=== PATIENT | male | born 1935 | race Caucasian/White ===

== ENCOUNTER 2018-05-12 17:47 | Inpatient (IN) | payer MEDICARE ==
--- NOTE | 2018-05-12 20:07 | ED ---
Abdominal Pain HPI - General Chief Complaint: Abdominal Pain Stated Complaint: Back Pain Time Seen by Provider: 05/12/18 19:47 Source: patient, RN notes reviewed Mode of arrival: ambulatory Limitations: no limitations - History of Present Illness Initial Comments: This is a 83-year-old male who states she's had abdominal pain for the past 2 or 3 days lower abdomen in location with some radiation to his back. He denies any fevers chills nausea vomiting sweats diarrhea constipation dysuria hematuria. He states he gets worse when he tries he had been in the morning. He states is worse with movement he will be sharp and 8/10 severity currently is almost 0. No prior history of pain like this. He did have x-rays done outpatient today which showed degenerative changes of the lumbar spine. He denies any prior abdominal operations. No history of diverticulitis MD Complaint: abdominal pain - Related Data Home Medications Medication Instructions Recorded Confirmed Acetaminophen [Tylenol] 325 mg PO Q4H PRN 12/10/14 05/12/18 Ca/D3/Mag/Zinc/Alexandre/Klaus/Mgbor 1 each PO DAILY 12/10/14 05/12/18 [Caltrate 600+D3+Min Chew Tab] Cholecalciferol [Vitamin D3] 400 unit PO DAILY 12/10/14 05/12/18 Multivit-Min/FA/Lycopene/Lut 1 each PO DAILY 12/10/14 05/12/18 [Centrum Silver Tablet] amLODIPine BESYLATE [Norvasc] 5 mg PO DAILY 12/10/14 05/12/18 Ascorbic Acid [Vitamin C] 1,000 mg PO DAILY 05/12/18 05/12/18 Loperamide HCl [Imodium A-D] 2 mg PO BID 05/12/18 05/12/18 Previous Rx's Medication Instructions Recorded Budesonide-Formot 160-4.5 Mcg 2 puff INHALATION RT-BID #1 puff 12/14/14 [Symbicort 160-4.5 Mcg Inhaler] Ipratropium-Albuterol Nebulize 3 ml IH QID #120 ampul.neb 12/14/14 [Duoneb 0.5 mg-3 mg/3 ml Soln] Allergies Allergy/AdvReac Type Severity Reaction Status Date / Time Penicillins Allergy Rash/Hives Verified 05/12/18 20:31 Review of Systems ROS Statement: Those systems with pertinent positive or pertinent negative responses have been documented in the HPI. ROS Other: All systems not noted in ROS Statement are negative. Past Medical History Past Medical History: Eye Disorder, Hypertension, Osteoarthritis (OA), Pneumonia Additional Past Medical History / Comment(s): arthritis, peptic ulcer, cataracts , renal insufficiency History of Any Multi-Drug Resistant Organisms: None Reported Past Surgical History: Adenoidectomy, Hernia Repair, Tonsillectomy Additional Past Surgical History / Comment(s): colonoscopy/egd "a few years ago ", lt inguinal hernia Past Anesthesia/Blood Transfusion Reactions: No Reported Reaction Past Psychological History: No Psychological Hx Reported Smoking Status: Never smoker Past Alcohol Use History: None Reported Past Drug Use History: None Reported - Past Family History Father Family Medical History: Myocardial Infarction ([place]) Additional Family Medical History / Comment(s): lived till age 87 Mother Family Medical History: Myocardial Infarction ([place]) Additional Family Medical History / Comment(s): lived till age 95 General Exam - General Exam Comments Initial Comments: This is a well-developed asthenic appearing male who is awake alert oriented 3 Limitations: no limitations General appearance: alert, in no apparent distress Head exam: Present: atraumatic, normocephalic, normal inspection Eye exam: Present: normal appearance, PERRL, EOMI. Absent: scleral icterus, conjunctival injection, periorbital swelling ENT exam: Present: normal exam, mucous membranes moist Neck exam: Present: normal inspection. Absent: tenderness, meningismus, lymphadenopathy Respiratory exam: Present: normal lung sounds bilaterally. Absent: respiratory distress, wheezes, rales, rhonchi, stridor Cardiovascular Exam: Present: regular rate, normal rhythm, normal heart sounds. Absent: systolic murmur, diastolic murmur, rubs, gallop, clicks GI/Abdominal exam: Present: soft, tenderness (Suprapubic tenderness palpation no definite guarding or rebound the bladder does feel somewhat prominent.), normal bowel sounds. Absent: distended, guarding, rebound, rigid Extremities exam: Present: normal inspection, full ROM, normal capillary refill. Absent: tenderness, pedal edema, joint swelling, calf tenderness Back exam: Present: other (Okay for THIS is demonstrated patient does have some mild paraspinous tenderness at the lower lumbar) Neurological exam: Present: alert, oriented X3, CN II-XII intact Psychiatric exam: Present: normal affect, normal mood Skin exam: Present: warm, dry, intact, normal color. Absent: rash Course Vital Signs 05/12/18 05/12/18 05/12/18 18:16 19:29 21:00 Temperature 97.6 F Pulse Rate 89 Respiratory 18 Rate Blood Pressure 148/81 152/83 O2 Sat by Pulse 99 86 L 99 Oximetry Medical Decision Making - Medical Decision Making I did discuss findings with the patient and family members patient be admitted for further evaluation of abdominal pain CAT scan will be ordered without IV contrast oral contrast only. Surgical consultation will be obtained in the a.m. - Lab Data Result diagrams: 05/12/18 20:33 05/12/18 20:33 Lab Results 05/12/18 05/12/18 05/12/18 Range/Units 20:33 20:33 20:33 WBC 10.3 (3.8-10.6) k/uL RBC 4.27 L (4.30-5.90) m/uL Hgb 13.4 (13.0-17.5) gm/dL Hct 39.7 (39.0-53.0) % MCV 92.9 (80.0-100.0) fL MCH 31.4 (25.0-35.0) pg MCHC 33.8 (31.0-37.0) g/dL RDW 12.3 (11.5-15.5) % Plt Count 270 (150-450) k/uL Neutrophils % 82 % Lymphocytes % 7 % Monocytes % 6 % Eosinophils % 3 % Basophils % 0 % Neutrophils # 8.5 H (1.3-7.7) k/uL Lymphocytes # 0.8 L (1.0-4.8) k/uL Monocytes # 0.6 (0-1.0) k/uL Eosinophils # 0.3 (0-0.7) k/uL Basophils # 0.0 (0-0.2) k/uL PT (9.0-12.0) sec INR (<1.2) APTT (22.0-30.0) sec Sodium 131 L (137-145) mmol/L Potassium 4.7 (3.5-5.1) mmol/L Chloride 92 L (98-107) mmol/L Carbon Dioxide 28 (22-30) mmol/L Anion Gap 11 mmol/L BUN 23 H (9-20) mg/dL Creatinine 1.11 (0.66-1.25) mg/dL Est GFR (CKD-EPI)AfAm 70 (>60 ml/min/1.73 sqM) Est GFR (CKD-EPI)NonAf 61 (>60 ml/min/1.73 sqM) Glucose 101 H (74-99) mg/dL Plasma Lactic Acid Turner (0.7-2.0) mmol/L Calcium 9.4 (8.4-10.2) mg/dL Total Bilirubin 0.8 (0.2-1.3) mg/dL AST 38 (17-59) U/L ALT 37 (21-72) U/L Alkaline Phosphatase 61 (38-126) U/L Total Creatine Kinase 148 (55-170) U/L CK-MB (CK-2) 3.2 H (0.0-2.4) ng/mL CK-MB (CK-2) Rel Index 2.2 Troponin I <0.012 (0.000-0.034) ng/mL Total Protein 6.7 (6.3-8.2) g/dL Albumin 4.2 (3.5-5.0) g/dL Amylase 86 (30-110) U/L Lipase 196 (23-300) U/L Urine Color Urine Appearance (Clear) Urine pH (5.0-8.0) Ur Specific [place] (1.001-1.035) Urine Protein (Negative) Urine Glucose (UA) (Negative) Urine Ketones (Negative) Urine Blood (Negative) Urine Nitrite (Negative) Urine Bilirubin (Negative) Urine Urobilinogen (<2.0) mg/dL Ur Leukocyte Esterase (Negative) Blood Type Blood Type Recheck Antibody Screen Spec Expiration Date 05/12/18 05/12/18 05/12/18 Range/Units 20:33 20:33 20:33 WBC (3.8-10.6) k/uL RBC (4.30-5.90) m/uL Hgb (13.0-17.5) gm/dL Hct (39.0-53.0) % MCV (80.0-100.0) fL MCH (25.0-35.0) pg MCHC (31.0-37.0) g/dL RDW (11.5-15.5) % Plt Count (150-450) k/uL Neutrophils % % Lymphocytes % % Monocytes % % Eosinophils % % Basophils % % Neutrophils # (1.3-7.7) k/uL Lymphocytes # (1.0-4.8) k/uL Monocytes # (0-1.0) k/uL Eosinophils # (0-0.7) k/uL Basophils # (0-0.2) k/uL PT 10.0 (9.0-12.0) sec INR 1.0 (<1.2) APTT 28.5 (22.0-30.0) sec Sodium (137-145) mmol/L Potassium (3.5-5.1) mmol/L Chloride (98-107) mmol/L Carbon Dioxide (22-30) mmol/L Anion Gap mmol/L BUN (9-20) mg/dL Creatinine (0.66-1.25) mg/dL Est GFR (CKD-EPI)AfAm (>60 ml/min/1.73 sqM) Est GFR (CKD-EPI)NonAf (>60 ml/min/1.73 sqM) Glucose (74-99) mg/dL Plasma Lactic Acid Turner 1.1 (0.7-2.0) mmol/L Calcium (8.4-10.2) mg/dL Total Bilirubin (0.2-1.3) mg/dL AST (17-59) U/L ALT (21-72) U/L Alkaline Phosphatase (38-126) U/L Total Creatine Kinase (55-170) U/L CK-MB (CK-2) (0.0-2.4) ng/mL CK-MB (CK-2) Rel Index Troponin I (0.000-0.034) ng/mL Total Protein (6.3-8.2) g/dL Albumin (3.5-5.0) g/dL Amylase (30-110) U/L Lipase (23-300) U/L Urine Color Light Yellow Urine Appearance Clear (Clear) Urine pH 7.5 (5.0-8.0) Ur Specific [place] 1.008 (1.001-1.035) Urine Protein Negative (Negative) Urine Glucose (UA) Negative (Negative) Urine Ketones 1+ H (Negative) Urine Blood Negative (Negative) Urine Nitrite Negative (Negative) Urine Bilirubin Negative (Negative) Urine Urobilinogen <2.0 (<2.0) mg/dL Ur Leukocyte Esterase Negative (Negative) Blood Type Blood Type Recheck Antibody Screen Spec Expiration Date 05/12/18 Range/Units 20:33 WBC (3.8-10.6) k/uL RBC (4.30-5.90) m/uL Hgb (13.0-17.5) gm/dL Hct (39.0-53.0) % MCV (80.0-100.0) fL MCH (25.0-35.0) pg MCHC (31.0-37.0) g/dL RDW (11.5-15.5) % Plt Count (150-450) k/uL Neutrophils % % Lymphocytes % % Monocytes % % Eosinophils % % Basophils % % Neutrophils # (1.3-7.7) k/uL Lymphocytes # (1.0-4.8) k/uL Monocytes # (0-1.0) k/uL Eosinophils # (0-0.7) k/uL Basophils # (0-0.2) k/uL PT (9.0-12.0) sec INR (<1.2) APTT (22.0-30.0) sec Sodium (137-145) mmol/L Potassium (3.5-5.1) mmol/L Chloride (98-107) mmol/L Carbon Dioxide (22-30) mmol/L Anion Gap mmol/L BUN (9-20) mg/dL Creatinine (0.66-1.25) mg/dL Est GFR (CKD-EPI)AfAm (>60 ml/min/1.73 sqM) Est GFR (CKD-EPI)NonAf (>60 ml/min/1.73 sqM) Glucose (74-99) mg/dL Plasma Lactic Acid Turner (0.7-2.0) mmol/L Calcium (8.4-10.2) mg/dL Total Bilirubin (0.2-1.3) mg/dL AST (17-59) U/L ALT (21-72) U/L Alkaline Phosphatase (38-126) U/L Total Creatine Kinase (55-170) U/L CK-MB (CK-2) (0.0-2.4) ng/mL CK-MB (CK-2) Rel Index Troponin I (0.000-0.034) ng/mL Total Protein (6.3-8.2) g/dL Albumin (3.5-5.0) g/dL Amylase (30-110) U/L Lipase (23-300) U/L Urine Color Urine Appearance (Clear) Urine pH (5.0-8.0) Ur Specific [place] (1.001-1.035) Urine Protein (Negative) Urine Glucose (UA) (Negative) Urine Ketones (Negative) Urine Blood (Negative) Urine Nitrite (Negative) Urine Bilirubin (Negative) Urine Urobilinogen (<2.0) mg/dL Ur Leukocyte Esterase (Negative) Blood Type O Positive Blood Type Recheck CABO Indicated Antibody Screen NEGATIVE Spec Expiration Date 05/15/2018 - 2333 - Radiology Data Radiology results: report reviewed (Did review the imaging and report there is dilatation of the biliary tree and pancreatic ducts. The bowel is poorly delineated.), image reviewed Disposition Clinical Impression: Abdominal pain Disposition: ADMITTED IP TO THIS [facility] Condition: Stable Referrals: Corwin Leija DO [Primary Care Provider] - 1-2 days
[2018-05-12 20:56] LABS: Basophils % (A) 0 %; Eosinophils # (A) 0.3 k/uL (0-0.7); Eosinophils % (A) 3 %; HCT 39.7 % (39.0-53.0); HGB 13.4 gm/dL (13.0-17.5); Lymphocytes # (A) 0.8 k/uL (1.0-4.8); Lymphocytes % (A) 7 %; MCH 31.4 pg (25.0-35.0); MCHC 33.8 g/dL (31.0-37.0); MCV 92.9 fL (80.0-100.0); Monocytes # (A) 0.6 k/uL (0-1.0); Monocytes % (A) 6 %; Neutrophils # (A) 8.5 k/uL (1.3-7.7); Neutrophils % (A) 82 %; Platelet Count 270 k/uL (150-450); RBC 4.27 m/uL (4.30-5.90); RDW 12.3 % (11.5-15.5); WBC 10.3 k/uL (3.8-10.6)
[2018-05-12 20:57] LABS: Appearance,Urine Clear (Clear); Bilirubin,Urine Negative (Negative); Blood,Urine Negative (Negative); Color,Urine Light Yellow; Glucose,Urine (UA) Negative (Negative); Ketones,Urine 1+ (Negative); Leukocyte Esterase,Urine Negative (Negative); Nitrite,Urine Negative (Negative); PH, Urine 7.5 (5.0-8.0); Protein,Urine Negative (Negative); Specific Gravity,Urine 1.008 (1.001-1.035); Urobilinogen,Urine <2.0 mg/dL (<2.0)
[2018-05-12 21:08] LABS: Albumin 4.2 g/dL (3.5-5.0); Calcium 9.4 mg/dL (8.4-10.2); Potassium 4.7 mmol/L (3.5-5.1); Total Bilirubin 0.8 mg/dL (0.2-1.3); Total Protein 6.7 g/dL (6.3-8.2)
[2018-05-12 21:12] LABS: Partial Thromboplastin Time 28.5 sec (22.0-30.0)
[2018-05-12 21:13] LABS: Creatine Kinase 148 U/L (55-170)
[2018-05-12 21:26] LABS: Creatine Kinase MB 3.2 ng/mL (0.0-2.4); Troponin I <0.012 ng/mL (0.000-0.034)
--- NOTE | 2018-05-12 22:19 | CT ---
EXAMINATION TYPE: CT abdomen pelvis w con DATE OF EXAM: 05/12/2018 COMPARISON: 01/10/2015 CT HISTORY: Abdominal and back pain. CT DLP: 637.3 mGycm. Automated exposure control for dose reduction was used. TECHNIQUE: Helical acquisition of images was performed from the lung bases through the pelvis. CONTRAST: Performed without Oral Contrast and with IV Contrast, patient injected with 100ml mL of Iso nannette 300. FINDINGS: VISUALIZED LOWER THORAX: Left lung base 11 mm pulmonary nodule noted. It has a correlate on the 2014 CT by 3 month follow-up chest CT is recommended to further characterize. Pleural calcified plaq ues are noted, consistent with asbestos related change. Mild cardiomegaly with prominent coronary akiko cifications. LIVER/GB/PANCREAS: There is mild extrahepatic biliary tree dilation and mild pancreatic ductal dilati on. Etiology is unclear; request LFT and pancreatic enzymatic correlation, and consideration of MRI/M FINANCIAL REPORTING DIRECTOR versus ERCP in this patient presenting with abdominal and back pain. SPLEEN: No significant abnormality is seen. ADRENALS: No significant abnormality is seen. KIDNEYS: No significant abnormality is seen. PERITONEAL CAVITY: No free air is visualized. ABDOMINAL ADENOPATHY: None visualized REPRODUCTIVE ORGANS: No significant abnormality is seen URINARY BLADDER: Mildly distended. PELVIC ADENOPATHY: None visualized. OSSEOUS STRUCTURES: No significant abnormality is seen. BOWEL: It is difficult to assess the bowel in this patient with very little abdominopelvic adipose. There are several loops of dilated fluid filled small and large bowel. If clinically useful would sug gest consideration of bowel assessment using 2 hour and 1 hour oral contrast prep - with repeat CT. I V contrast need not be given the for this hollow viscera CT with oral contrast assessment. VASCULATURE: No acute findings. IMPRESSION: 1. DILATED PANCREATICOBILIARY SYSTEMS. 2. BOWEL GAS PATTERN DISCUSSION. 2. LEFT LOWER LOBE PULMONARY NODULE FOR WHICH THREE-MONTH FOLLOW-UP CT IS ADVISED.
[2018-05-12] MEDS ORDERED: ONDANSETRON 4 MG/2 ML VIAL IVP PRN (23:06)
[2018-05-12] MEDS ORDERED: NALOXONE 0.4 MG/ML 1 ML VIAL IV PRN (23:06)
[2018-05-12] MEDS ORDERED: HYDROmorphone 1 MG/ML 1 ML SYRINGE IVP PRN (23:06)
[2018-05-12] MEDS ORDERED: IOPAMIDOL-300 CONTRAST 30 ML VIAL (ORAL USE) PO PRN (23:10)
--- NOTE | 2018-05-13 02:00 | CT ---
EXAMINATION TYPE: CT abdomen pelvis wo con DATE OF EXAM: 05/13/2018 COMPARISON: 05/12/2018 HISTORY: Prior A/P exam done earlier with IV only, PO only now, Abdominal and back pain CT DLP: 362.50 mGycm Automated exposure control for dose reduction was used. TECHNIQUE: Helical acquisition of images was performed from the lung bases through the pelvis. FINDINGS: There is some interstitial infiltrate at the lung bases. Heart is slightly enlarged. There is 12 mm n oncalcified nodular density in the left lower lobe. This is probably also present on the old CT scan of 01/10/2015 and not significantly different. There is subpleural reticular density in the lower lobe s consistent with pulmonary fibrosis there is small hiatal hernia. There is dilated biliary tree. There is also mildly dilated pancreatic duct that measures up to 5.5 mm. There are numerous large bowel fluid levels in the right abdomen. Sm all bowel is not dilated. The oral contrast does not reach the large bowel. There are numerous divert icula in the descending colon and sigmoid colon. The bladder is filled with IV contrast. Prostate is large and measures almost 5 cm. There are a few lymph nodes in the pelvis that measure up to 15 there are mild bilateral inguinal hernias without incarceration. There is no evidence of constipation. The left colon is not dilated. There is some fecal material in the descending colon. There is contrast i n the kidneys without evidence of hydronephrosis. . 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 THERE IS IMPROVED AERATION OF THE LUNG BAS ES COMPARED TO 01/10/2015 CT SCAN. LEFT LOWER LOBE NODULE IS PROBABLY UNCHANGED. DILATED BILIARY TREE AND PANCREATIC DUCT. DISTAL COMMON BILE DUCT IS NOT WELL EVALUATED AND ERCP OR M BLOCK TRIMMER EXAM WOULD BE HELPFUL IF CLINICALLY INDICATED. THERE IS MILDLY DILATED FLUID AND AIR-FILLED RIGHT COLON AND TRANSVERSE COLON WITHOUT WALL THICKENING . THIS IS CONSISTENT WITH ILEUS. NO OBSTRUCTING LESION SEEN. ENLARGED PROSTATE. NONSPECIFIC PELVIC LYMPH NODES.
[2018-05-13] MEDS: SODIUM CHLORIDE 0.9% 1,000 ML IV SCH ×3 (02:05→17:54)
[2018-05-13] MEDS: IPRATROPIUM-ALBUTEROL 3 ML NEB IH SCH ×3 (07:55→19:12)
[2018-05-13] MEDS: SYMBICORT 160-4.5 MCG INHALER INHALATION SCH ×2 (07:55→19:12)
[2018-05-13] MEDS ORDERED: INFLUENZA VACCINE (6 MOS+) 60 MCG/0.5 ML SYRINGE IM ONE (08:04)
[2018-05-13 14:41] VITALS: BMI 18.1
--- NOTE | 2018-05-13 15:56 | P.GSCN ---
<Mary Enamorado - Last Filed: 05/13/18 15:37> History of Present Illness Consult date: 05/13/18 Reason for Consult: Abdominal pain History of present illness: 83-year-old male who presented to the emergency room with a chief complaint of developing abdominal pain points to the midepigastric area stated it started several days ago radiating to the back. Patient states that he had been moving heavy boxes several days ago and developed the back pain. He denied any fever chills no nausea vomiting. Patient stated he had his last bowel movement last states he normally has a bowel movement every 3 days has not had one since. Patient stated that he did have x-rays done to evaluate his back pain according to the patient it would no acute findings. It did show degenerative changes of the lumbar spine. Patient gives no history of having any abdominal surgeries. No history of diverticulitis. 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 Abdomen mild tenderness noted in the midepigastric area states radiates to the back abdomen slightly tender nondistended Review of Systems Essentially unremarkable except mentioned in the present illness Past Medical History Past Medical History: Eye Disorder, Hypertension, Osteoarthritis (OA), Pneumonia Additional Past Medical History / Comment(s): Lower GI bleed, peptic ulcer, gastritis, normocytic anemia, past pneumonia and pt states since then he has had "spots" on his lungs, CKD stage III, L eye small cataract. History of Any Multi-Drug Resistant Organisms: None Reported Past Surgical History: Adenoidectomy, Hernia Repair, Tonsillectomy Additional Past Surgical History / Comment(s): colonoscopies/egds, lt inguinal hernia Past Anesthesia/Blood Transfusion Reactions: No Reported Reaction Additional Past Anesthesia/Blood Transfusion Reaction / Comm: Pt states he has received blood in past without reaction. Smoking Status: Never smoker - Past Family History Father Family Medical History: Myocardial Infarction ([place]) Additional Family Medical History / Comment(s): Father had heart disease. He lived till age 87 Mother Family Medical History: Myocardial Infarction ([place]) Additional Family Medical History / Comment(s): Mother had heart disease. She lived till age 95 Medications and Allergies Home Medications Medication Instructions Recorded Confirmed Type Acetaminophen [Tylenol] 325 mg PO Q4H PRN 12/10/14 05/12/18 History Ca/D3/Mag/Zinc/Alexandre/Klaus/Mgbor 1 each PO DAILY 12/10/14 05/12/18 History [Caltrate 600+D3+Min Chew Tab] Cholecalciferol [Vitamin D3] 400 unit PO DAILY 12/10/14 05/12/18 History Multivit-Min/FA/Lycopene/Lut 1 each PO DAILY 12/10/14 05/12/18 History [Centrum Silver Tablet] amLODIPine BESYLATE [Norvasc] 5 mg PO DAILY 12/10/14 05/12/18 History Budesonide-Formot 160-4.5 Mcg 2 puff INHALATION RT-BID #1 puff 12/14/14 Rx [Symbicort 160-4.5 Mcg Inhaler] Ipratropium-Albuterol Nebulize 3 ml IH QID #120 ampul.neb 12/14/14 05/12/18 Rx [Duoneb 0.5 mg-3 mg/3 ml Soln] Ascorbic Acid [Vitamin C] 1,000 mg PO DAILY 05/12/18 05/12/18 History Loperamide HCl [Imodium A-D] 2 mg PO BID 05/12/18 05/12/18 History Allergies Allergy/AdvReac Type Severity Reaction Status Date / Time Penicillins Allergy Rash/Hives Verified 05/12/18 20:31 Surgical - Exam Vital Signs Temp Pulse Resp BP Pulse Ox 97.6 F 89 18 148/81 99 05/12/18 18:16 05/12/18 18:16 05/12/18 18:16 05/12/18 18:16 05/12/18 18:16 GENERAL APPEARANCE: Thin 83-year-old male patient is alert, oriented, in no acute distress. VITAL SIGNS: Reviewed HEENT: Head is normocephalic and atraumatic. Pupils are equal and reactive. The nares are patent. Oropharynx is clear without lesions. NECK: Supple without lymphadenopathy. Traches midline. HEART: S1, S2. Regular rate and rhythm. No murmur denying chest pain LUNGS: No crackles or wheezes are heard. No shortness of breath noted ABDOMEN: Soft, mild tenderness suprapubic area palpitation no rebound no guarding few hypoactive bowel tones nondistended with good bowel sounds. No peritoneal signs. No palpable organomegaly or masses. No diarrhea no loose stool states last bowel movement was a week ago reports no nausea no vomiting EXTREMITIES: Normal skin color and turgor. No cyanosis, rash, ulceration, clubbing or edema. Radial pedal pulses are 2/4 bilaterally. NEUROLOGICAL: No focal deficits. Strength and sensation are grossly intact. Results Impression Present on admission lower abdominal pain radiating to the back unclear etiology X-ray shows degenerative changes in the lumbar spine No prior abdominal surgeries No history of diverticulitis CAT scan of the abdomen pelvis without contrast report reviewed lower lobe of the lungs consistent with pulmonary fibrosis changes hiatal hernia small No evidence of constipation. Left colon not dilated per CAT scan report CAT scan report showed numerous diverticula in the descending and sigmoid colon no diverticulitis EGD done on the January 2015 showed history of gastric ulcers including gastritis, epigastric abdominal pain, gastrointestinal hemorrhage Plan No evidence of an acute surgical abdomen at this time Repeat abdominal x-ray in the morning Nothing by mouth except ice chips DVT and GI prophylaxis . Further recommendations pending will follow with you Surgical consultation dictated for Dr. cates The above impression and plan of care have been discussed and directed by signing physician. Mary Enamorado nurse practitioner acting as scribe for signing physician. - Labs 05/12/18 20:33 05/12/18 20:33 Abnormal Lab Results - Last 24 Hours (Table) 05/12/18 05/12/18 05/12/18 Range/Units 20:33 20:33 20:33 RBC 4.27 L (4.30-5.90) m/uL Neutrophils # 8.5 H (1.3-7.7) k/uL Lymphocytes # 0.8 L (1.0-4.8) k/uL Sodium 131 L (137-145) mmol/L Chloride 92 L (98-107) mmol/L BUN 23 H (9-20) mg/dL Glucose 101 H (74-99) mg/dL CK-MB (CK-2) 3.2 H (0.0-2.4) ng/mL Urine Ketones (Negative) 05/12/18 Range/Units 20:33 RBC (4.30-5.90) m/uL Neutrophils # (1.3-7.7) k/uL Lymphocytes # (1.0-4.8) k/uL Sodium (137-145) mmol/L Chloride (98-107) mmol/L BUN (9-20) mg/dL Glucose (74-99) mg/dL CK-MB (CK-2) (0.0-2.4) ng/mL Urine Ketones 1+ H (Negative) Diabetes panel 05/12/18 Range/Units 20:33 Sodium 131 L (137-145) mmol/L Potassium 4.7 (3.5-5.1) mmol/L Chloride 92 L (98-107) mmol/L Carbon Dioxide 28 (22-30) mmol/L BUN 23 H (9-20) mg/dL Creatinine 1.11 (0.66-1.25) mg/dL Glucose 101 H (74-99) mg/dL Calcium 9.4 (8.4-10.2) mg/dL AST 38 (17-59) U/L ALT 37 (21-72) U/L Alkaline Phosphatase 61 (38-126) U/L Total Protein 6.7 (6.3-8.2) g/dL Albumin 4.2 (3.5-5.0) g/dL Calcium panel 05/12/18 Range/Units 20:33 Calcium 9.4 (8.4-10.2) mg/dL Albumin 4.2 (3.5-5.0) g/dL Pituitary panel 05/12/18 Range/Units 20:33 Sodium 131 L (137-145) mmol/L Potassium 4.7 (3.5-5.1) mmol/L Chloride 92 L (98-107) mmol/L Carbon Dioxide 28 (22-30) mmol/L BUN 23 H (9-20) mg/dL Creatinine 1.11 (0.66-1.25) mg/dL Glucose 101 H (74-99) mg/dL Calcium 9.4 (8.4-10.2) mg/dL Adrenal panel 05/12/18 Range/Units 20:33 Sodium 131 L (137-145) mmol/L Potassium 4.7 (3.5-5.1) mmol/L Chloride 92 L (98-107) mmol/L Carbon Dioxide 28 (22-30) mmol/L BUN 23 H (9-20) mg/dL Creatinine 1.11 (0.66-1.25) mg/dL Glucose 101 H (74-99) mg/dL Calcium 9.4 (8.4-10.2) mg/dL Total Bilirubin 0.8 (0.2-1.3) mg/dL AST 38 (17-59) U/L ALT 37 (21-72) U/L Alkaline Phosphatase 61 (38-126) U/L Total Protein 6.7 (6.3-8.2) g/dL Albumin 4.2 (3.5-5.0) g/dL <Jong Cates - Last Filed: 05/13/18 18:20> Surgical - Exam Vital Signs Temp Pulse Resp BP Pulse Ox 97.6 F 89 18 148/81 99 05/12/18 18:16 05/12/18 18:16 05/12/18 18:16 05/12/18 18:16 05/12/18 18:16 Results - Labs 05/12/18 20:33 05/12/18 20:33 Abnormal Lab Results - Last 24 Hours (Table) 05/12/18 05/12/18 05/12/18 Range/Units 20:33 20:33 20:33 RBC 4.27 L (4.30-5.90) m/uL Neutrophils # 8.5 H (1.3-7.7) k/uL Lymphocytes # 0.8 L (1.0-4.8) k/uL Sodium 131 L (137-145) mmol/L Chloride 92 L (98-107) mmol/L BUN 23 H (9-20) mg/dL Glucose 101 H (74-99) mg/dL CK-MB (CK-2) 3.2 H (0.0-2.4) ng/mL Urine Ketones (Negative) 05/12/18 Range/Units 20:33 RBC (4.30-5.90) m/uL Neutrophils # (1.3-7.7) k/uL Lymphocytes # (1.0-4.8) k/uL Sodium (137-145) mmol/L Chloride (98-107) mmol/L BUN (9-20) mg/dL Glucose (74-99) mg/dL CK-MB (CK-2) (0.0-2.4) ng/mL Urine Ketones 1+ H (Negative) Diabetes panel 05/12/18 Range/Units 20:33 Sodium 131 L (137-145) mmol/L Potassium 4.7 (3.5-5.1) mmol/L Chloride 92 L (98-107) mmol/L Carbon Dioxide 28 (22-30) mmol/L BUN 23 H (9-20) mg/dL Creatinine 1.11 (0.66-1.25) mg/dL Glucose 101 H (74-99) mg/dL Calcium 9.4 (8.4-10.2) mg/dL AST 38 (17-59) U/L ALT 37 (21-72) U/L Alkaline Phosphatase 61 (38-126) U/L Total Protein 6.7 (6.3-8.2) g/dL Albumin 4.2 (3.5-5.0) g/dL Calcium panel 05/12/18 Range/Units 20:33 Calcium 9.4 (8.4-10.2) mg/dL Albumin 4.2 (3.5-5.0) g/dL Pituitary panel 05/12/18 Range/Units 20:33 Sodium 131 L (137-145) mmol/L Potassium 4.7 (3.5-5.1) mmol/L Chloride 92 L (98-107) mmol/L Carbon Dioxide 28 (22-30) mmol/L BUN 23 H (9-20) mg/dL Creatinine 1.11 (0.66-1.25) mg/dL Glucose 101 H (74-99) mg/dL Calcium 9.4 (8.4-10.2) mg/dL Adrenal panel 05/12/18 Range/Units 20:33 Sodium 131 L (137-145) mmol/L Potassium 4.7 (3.5-5.1) mmol/L Chloride 92 L (98-107) mmol/L Carbon Dioxide 28 (22-30) mmol/L BUN 23 H (9-20) mg/dL Creatinine 1.11 (0.66-1.25) mg/dL Glucose 101 H (74-99) mg/dL Calcium 9.4 (8.4-10.2) mg/dL Total Bilirubin 0.8 (0.2-1.3) mg/dL AST 38 (17-59) U/L ALT 37 (21-72) U/L Alkaline Phosphatase 61 (38-126) U/L Total Protein 6.7 (6.3-8.2) g/dL Albumin 4.2 (3.5-5.0) g/dL Assessment and Plan Plan: The patient has significant abdominal distention. He has not had a bowel movement in 5 days. We will give him a Fleet enema tonight..
[2018-05-13] MEDS ORDERED: NA PHOS,M-B/NA PHOS,DI-BA 133 ML ENEMA RECTAL ONE (18:33)
[2018-05-13] MEDS: PANTOPRAZOLE 40 MG/10 ML VIAL IVP SCH (20:43)
--- NOTE | 2018-05-14 00:01 | P.HPIM ---
History of Present Illness H&P Date: 05/13/18 Chief Complaint: Abdominal pain and distention Patient is a 83-year-old male with a known history of gastritis, peptic ulcer disease and history of GI bleed, CK D stage III came to ER with complaints of worsening abdominal pain for the past 2-3 days. 03/07 when he came to the hospital. Mainly in the lower abdomen and sometimes radiate to the back. Otherwise denied any nausea vomiting. No fever no chills. No diarrhea. Denied any hematemesis or melena. Pain gets worse with movement. CT of the abdominal pelvis with contrast showed dilated pancreatobiliary system. Left lower lobe pulmonary nodule for which 3 months scan is recommended There is mildly dilated a fluid level right colon and transverse colon without wall thickening. This is consistent with ileus. No obstructing lesion. Enlarged prostate. Review of Systems Constitutional: Patient denies any fever or chills . No generalized weakness or weight loss. Abdomen: Nausea vomiting and abdominal pain. Constipation.. Cardiovascular: Patient denies any chest pain or short of breath no palpitations. Respiratory: patient denied any cough is from production. No shortness of breath Neurologic: Patient denied any numbness or tingling headache. Musculoskeletal: Patient denies any complaints of joint swelling or deformity. Skin: Negative Psychiatric: Negative Endocrine: No heat or cold intolerance. No recent weight gain. Genitourinary: No dysuria or hematuria. All other 14 point ROS negative except the above Past Medical History Past Medical History: Eye Disorder, Hypertension, Osteoarthritis (OA), Pneumonia Additional Past Medical History / Comment(s): Lower GI bleed, peptic ulcer, gastritis, normocytic anemia, past pneumonia and pt states since then he has had "spots" on his lungs, CKD stage III, L eye small cataract. History of Any Multi-Drug Resistant Organisms: None Reported Past Surgical History: Adenoidectomy, Hernia Repair, Tonsillectomy Additional Past Surgical History / Comment(s): colonoscopies/egds, lt inguinal hernia Past Anesthesia/Blood Transfusion Reactions: No Reported Reaction Additional Past Anesthesia/Blood Transfusion Reaction / Comment(s): Pt states he has received blood in past without reaction. Smoking Status: Never smoker - Past Family History Father Family Medical History: Myocardial Infarction ([place]) Additional Family Medical History / Comment(s): Father had heart disease. He lived till age 87 Mother Family Medical History: Myocardial Infarction ([place]) Additional Family Medical History / Comment(s): Mother had heart disease. She lived till age 95 Medications and Allergies Home Medications Medication Instructions Recorded Confirmed Type Acetaminophen [Tylenol] 325 mg PO Q4H PRN 12/10/14 05/12/18 History Ca/D3/Mag/Zinc/Alexandre/Klaus/Mgbor 1 each PO DAILY 12/10/14 05/12/18 History [Caltrate 600+D3+Min Chew Tab] Cholecalciferol [Vitamin D3] 400 unit PO DAILY 12/10/14 05/12/18 History Multivit-Min/FA/Lycopene/Lut 1 each PO DAILY 12/10/14 05/12/18 History [Centrum Silver Tablet] amLODIPine BESYLATE [Norvasc] 5 mg PO DAILY 12/10/14 05/12/18 History Budesonide-Formot 160-4.5 Mcg 2 puff INHALATION RT-BID #1 puff 12/14/14 Rx [Symbicort 160-4.5 Mcg Inhaler] Ipratropium-Albuterol Nebulize 3 ml IH QID #120 ampul.neb 12/14/14 05/12/18 Rx [Duoneb 0.5 mg-3 mg/3 ml Soln] Ascorbic Acid [Vitamin C] 1,000 mg PO DAILY 05/12/18 05/12/18 History Loperamide HCl [Imodium A-D] 2 mg PO BID 05/12/18 05/12/18 History Allergies Allergy/AdvReac Type Severity Reaction Status Date / Time Penicillins Allergy Rash/Hives Verified 05/12/18 20:31 Physical Exam Vitals: Vital Signs Temp Pulse Pulse Resp BP BP Pulse Ox 05/13/18 08:09 88 05/13/18 07:58 82 05/13/18 06:28 97.4 F L 84 16 152/76 100 05/13/18 05:00 82 18 136/83 95 05/13/18 04:00 81 20 148/90 96 05/13/18 03:00 78 20 140/78 98 05/13/18 02:00 89 20 136/83 97 05/13/18 01:00 137/85 98 05/13/18 00:00 73 20 146/82 98 10/15/18 23:00 70 18 153/85 10/15/18 22:00 68 20 151/88 05/12/18 21:00 152/83 99 05/12/18 19:29 86 L 05/12/18 18:16 97.6 F 89 18 148/81 99 Intake and Output 05/12/18 05/13/18 05/13/18 22:59 06:59 14:59 Intake Total 500 Balance 500 Intake: Amount of Fluid Infused ( 500 ml) Other: Weight 54.431 kg 51 kg PHYSICAL EXAMINATION: Patient is lying in the bed comfortably, no acute distress, awake alert and oriented.. HEENT: Normocephalic. Neck is supple. Pupils reactive. Nostrils clear. Oral cavity is moist. Ears reveal no drainage. Neck reveals no JVD, carotid bruits, or thyromegaly. CHEST EXAMINATION: Trachea is central. Symmetrical expansion. Lung bledsoe clear to auscultation and percussion. CARDIAC: Normal S1, S2 with no gallops. No murmurs ABDOMEN: Soft. Distended. Bowel sounds normal to hyperactive. No abdominal bruits. Extremities: reveal no edema. No clubbing or cyanosis Neurologically awake, alert, oriented x3 with well-coordinated movements. No focal deficits noted Skin: No rash or skin lesions. Psychiatric: Coperative. Nonsuicidal Musculoskeletal: No joint swelling or deformity. Normal range of motion. Results CBC & Chem 7: 05/12/18 20:33 05/12/18 20:33 Labs: Abnormal Lab Results - Last 24 Hours (Table) 05/12/18 05/12/18 05/12/18 Range/Units 20:33 20:33 20:33 RBC 4.27 L (4.30-5.90) m/uL Neutrophils # 8.5 H (1.3-7.7) k/uL Lymphocytes # 0.8 L (1.0-4.8) k/uL Sodium 131 L (137-145) mmol/L Chloride 92 L (98-107) mmol/L BUN 23 H (9-20) mg/dL Glucose 101 H (74-99) mg/dL CK-MB (CK-2) 3.2 H (0.0-2.4) ng/mL Urine Ketones (Negative) 05/12/18 Range/Units 20:33 RBC (4.30-5.90) m/uL Neutrophils # (1.3-7.7) k/uL Lymphocytes # (1.0-4.8) k/uL Sodium (137-145) mmol/L Chloride (98-107) mmol/L BUN (9-20) mg/dL Glucose (74-99) mg/dL CK-MB (CK-2) (0.0-2.4) ng/mL Urine Ketones 1+ H (Negative) Thrombosis Risk Factor Assmnt - DVT/VTE Prophylaxis DVT/VTE Prophylaxis: Pharmacologic Prophylaxis ordered - Choose All That Apply Any of the Below Risk Factors Present?: Yes Other Risk Factors: Yes Each Risk Factor Represents 3 Points: Age 75 years or older Other congenital or acquired thrombophilia - If yes, enter type in comment: No Thrombosis Risk Factor Assessment Total Risk Factor Score: 3 Thrombosis Risk Factor Assessment Level: Moderate Risk Assessment and Plan Assessment: Abdominal distention likely due to ileus. No obstruction noted in the CT abdominal pelvis Dilated hepatobiliary ducts. BPH Hypertension Osteoarthritis CK D stage III B Left eye small cataract History of lower GI bleed and peptic ulcer disease Left lower lobe lung nodule. Follow-up recommended DVT prophylaxis Plan: Patient will be kept nothing by mouth. Continue with IV hydration and edema was ordered. No evidence of obstruction on the CT abdominal pelvis. Liver enzymes are not elevated. Follow-up CBC and BMP tomorrow. Continue the current management and further recommendations based on the clinical course. General surgery is following. Time with Patient: Greater than 30
[2018-05-14] MEDS: HEPARIN SODIUM,PORCINE 5,000 UNIT/ML 1 ML VIAL SQ SCH ×4 (00:34→23:52)
[2018-05-14] MEDS: SODIUM CHLORIDE 0.9% 1,000 ML IV SCH ×4 (00:35→22:40)
[2018-05-14 07:10] LABS: Basophils % (A) 0 %; Eosinophils # (A) 0.3 k/uL (0-0.7); Eosinophils % (A) 3 %; HCT 35.2 % (39.0-53.0); HGB 11.6 gm/dL (13.0-17.5); Lymphocytes # (A) 0.9 k/uL (1.0-4.8); Lymphocytes % (A) 11 %; MCH 31.7 pg (25.0-35.0); MCHC 33.1 g/dL (31.0-37.0); MCV 95.8 fL (80.0-100.0); Mean Platelet Volume 7.5; Monocytes # (A) 0.6 k/uL (0-1.0); Monocytes % (A) 7 %; Neutrophils # (A) 5.9 k/uL (1.3-7.7); Neutrophils % (A) 74 %; Platelet Count 251 k/uL (150-450); RBC 3.67 m/uL (4.30-5.90); RDW 12.4 % (11.5-15.5)
[2018-05-14 07:29] LABS: Albumin 3.1 g/dL (3.5-5.0); Calcium 8.1 mg/dL (8.4-10.2); Total Bilirubin 0.7 mg/dL (0.2-1.3); Total Protein 5.6 g/dL (6.3-8.2)
[2018-05-14] MEDS: PANTOPRAZOLE 40 MG/10 ML VIAL IVP SCH ×2 (07:40→20:00)
[2018-05-14] MEDS: SYMBICORT 160-4.5 MCG INHALER INHALATION SCH ×2 (08:11→20:41)
[2018-05-14] MEDS: IPRATROPIUM-ALBUTEROL 3 ML NEB IH SCH ×5 (08:11→20:41)
--- NOTE | 2018-05-14 08:21 | XR ---
EXAMINATION TYPE: XR abdomen 2V DATE OF EXAM: 05/14/2018 CLINICAL DATA: 83-year-old male epigastric abdominal pain, [facility] COMPARISON: CT 05/13/2018 FINDINGS: Fibrotic changes of the lung bases. No evidence for free intraperitoneal air. Some air-fluid levels within the colon. The transverse colon is borderline distended nearing 6 cm. Qu estionable mural based soft tissue thickening at the level of the splenic flexure. No dilated small b owel loops. Impression: 1. Air-fluid levels in the colon could represent liquid stool relating to an enteritis or a colonic i leus. Transverse colon is borderline distended nearing 6 cm. 2. Questionable mural based soft tissue thickening at the splenic flexure. Underlying colitis or neop lasm are considerations. Direct visualization may be indicated. 3. No small bowel obstruction or free air.
--- NOTE | 2018-05-14 09:19 | P.PN ---
Subjective Progress Note Date: 05/14/18 83-year-old male seen bedside this morning up in the bathroom states he has had several watery loose stools this morning abdomen is less distended remains firm reports no nausea vomiting states urinating no difficulty patient states he had several bowel movements last evening after having a fleet enema given. Reports less abdominal pain Abdominal x-ray this morning reviewing the report showed no small bowel obstruction or free air does show air-fluid levels in the colon could represent liquid stool relating to enteritis or a colonic ileus questionable mural based soft tissue thickening at the splenic flexure underlying colitis or neoplasm cannot be excluded Objective - Vital Signs Vital signs: Vital Signs Temp 97.6 F 05/14/18 05:00 Pulse 82 05/14/18 08:24 Resp 16 05/14/18 05:00 BP 145/76 05/14/18 05:00 Pulse Ox 98 05/14/18 05:00 Intake & Output 05/13/18 05/14/18 05/14/18 18:59 06:59 18:59 Intake Total 375 Balance 375 Weight 51 kg Intake: Intake, IV Titration 375 Amount Sodium Chloride 0.9% 1, 375 000 ml @ 125 mls/hr IV . Q8H [facility] Rx#:[id number] Other: Voiding Method Toilet Toilet # Voids 3 4 - Exam Physical exam 83-year-old male up in the bathroom reports no nausea vomiting having several watery liquid stools Lungs good air movement bilaterally on room air no shortness of breath heart S1-S2 audible regular denying chest pain abdomen less distended nontender firm. Hypoactive bowel tones stooling states abdominal discomfort slightly improved no nausea no vomiting Extremities no edema noted - Labs CBC & Chem 7: 05/14/18 06:52 05/14/18 06:52 Labs: Abnormal Lab Results - Last 24 Hours (Table) 05/14/18 05/14/18 Range/Units 06:52 06:52 RBC 3.67 L (4.30-5.90) m/uL Hgb 11.6 L (13.0-17.5) gm/dL Hct 35.2 L (39.0-53.0) % Lymphocytes # 0.9 L (1.0-4.8) k/uL Sodium 133 L (137-145) mmol/L Calcium 8.1 L (8.4-10.2) mg/dL Total Protein 5.6 L (6.3-8.2) g/dL Albumin 3.1 L (3.5-5.0) g/dL Microbiology - Last 24 Hours (Table) 05/12/18 20:33 Blood Culture - Preliminary Blood No Growth after 24 hours Assessment and Plan Assessment: Impression Present on admission abdominal pain with abdominal distention no bowel movement for 5 days Abdominal x-ray obtained on the show no small bowel obstruction or free air Air-fluid levels in the colon could represent colonic ileus per abdominal x-ray CAT scan of the abdomen pelvis without contrast report reviewed numerous diverticuli in the descending and sigmoid colon no diverticulitis Plan Keep nothing by mouth except meds Further surgical recommendations pending IV fluid for hydration DVT and GI prophylaxis We'll follow with you The above impression and plan of care have been discussed and directed by signing physician. Mary Enamorado nurse practitioner acting as scribe for signing physician.
[2018-05-14] MEDS ORDERED: IOPAMIDOL-300 CONTRAST 30 ML VIAL (ORAL USE) PO PRN (14:08)
[2018-05-14] MEDS: MELATONIN 5 MG TABLET PO SCH (22:41)
[2018-05-15] MEDS: PANTOPRAZOLE 40 MG/10 ML VIAL IVP SCH ×2 (07:55→20:33)
[2018-05-15] MEDS: HEPARIN SODIUM,PORCINE 5,000 UNIT/ML 1 ML VIAL SQ SCH ×2 (07:56→15:02)
[2018-05-15] MEDS: SYMBICORT 160-4.5 MCG INHALER INHALATION SCH ×2 (08:12→21:04)
[2018-05-15] MEDS: IPRATROPIUM-ALBUTEROL 3 ML NEB IH SCH ×4 (08:12→21:04)
[2018-05-15] MEDS: SODIUM CHLORIDE 0.9% 1,000 ML IV SCH ×3 (08:36→20:36)
--- NOTE | 2018-05-15 08:49 | XR ---
EXAMINATION TYPE: XR abdomen complete w decub DATE OF EXAM: 05/15/2018 COMPARISON: 05/14/2018 HISTORY: Bowel obstruction. Abdominal pain. Follow-up exam. TECHNIQUE: Supine, upright, and left side down lateral decubitus views of the abdomen are obtained. FINDINGS: There is continued progression of contrast throughout the colon with contrast seen in the d istal colon. No dilated large bowel. Few prominent left lower quadrant small bowel loops measure up t o 3.3 cm, likely relating to ileus. No pneumoperitoneum is seen. Extensive degenerative changes of th e spine are noted as well as moderate femoral acetabular arthropathy. Lung bases are clear. IMPRESSION: Continued progression of contrast into the nondilated large bowel. No evidence of large bowel obstruc tion. Few prominent loops of small bowel are likely on the basis of small bowel ileus.
[2018-05-15 09:44] LABS: Albumin 3.8 g/dL (3.5-5.0); Calcium 8.6 mg/dL (8.4-10.2); Potassium 4.2 mmol/L (3.5-5.1); Total Protein 6.4 g/dL (6.3-8.2)
--- NOTE | 2018-05-15 12:28 | P.PN ---
Subjective Progress Note Date: 05/15/18 83-year-old male seen at the bedside Patient states no nausea no vomiting. When questioning patient states abdominal pain improving. Abdomen is more distended compared to prior assessment few hypoactive bowel tones noted currently patient is nothing by mouth. Reportedly urinating no difficulty. Patient states he has not had a bowel movement since admission after having a Fleet Enema Abdominal x-ray done yesterday report reviewed continue progression of contrast into a nondilated large bowel no evidence of a large bowel obstruction few prominent loops of small bowel likely on the basis of a small bowel ileus Objective - Vital Signs Vital signs: Vital Signs Temp 98 F 05/15/18 05:00 Pulse 95 05/15/18 11:52 Resp 16 05/15/18 05:00 BP 117/61 05/15/18 05:00 Pulse Ox 96 05/15/18 05:00 Intake & Output 05/14/18 05/15/18 05/15/18 18:59 06:59 18:59 Intake Total 1375 Balance 1375 Intake: Intake, IV Titration 1375 Amount Sodium Chloride 0.9% 1, 1375 000 ml @ 125 mls/hr IV . Q8H [facility] Rx#:[id number] Other: Voiding Method Toilet Toilet Toilet # Voids 3 3 - Exam Physical exam 83-year-old male resting in bed patient states abdominal pain feeling better" Lungs good air movement bilaterally on room air no shortness of breath heart S1-S2 audible regular denying chest pain abdomen slightly more distended nontender firm. Hypoactive bowel tones states abdominal discomfort slightly improved no nausea no vomiting Extremities no edema noted - Labs CBC & Chem 7: 05/14/18 06:52 05/15/18 08:47 Labs: Abnormal Lab Results - Last 24 Hours (Table) 05/15/18 Range/Units 08:47 Sodium 133 L (137-145) mmol/L Carbon Dioxide 21 L (22-30) mmol/L Glucose 70 L (74-99) mg/dL Microbiology - Last 24 Hours (Table) 05/12/18 20:33 Blood Culture - Preliminary Blood No Growth after 48 hours Assessment and Plan Assessment: Impression Present on admission abdominal pain with abdominal distention no bowel movement for 5 days Abdominal x-ray obtained on the show no small bowel obstruction or free air Air-fluid levels in the colon could represent colonic ileus per abdominal x-ray CAT scan of the abdomen pelvis without contrast report reviewed numerous diverticuli in the descending and sigmoid colon no diverticulitis Abdominal x-ray images done on the no evidence of a large bowel obstruction few prominent loops of small bowel likely on the basis of a small bowel ileus Plan Repeat a CAT scan of the abdomen pelvis with oral contrast follow-up on the results Fleets enema 1 now Keep nothing by mouth except meds Further surgical recommendations pending IV fluid for hydration DVT and GI prophylaxis We'll follow with you The above impression and plan of care have been discussed and directed by signing physician. Mary Enamorado nurse practitioner acting as scribe for signing physician.
[2018-05-15] MEDS ORDERED: NA PHOS,M-B/NA PHOS,DI-BA 133 ML ENEMA RECTAL ONE (14:30)
[2018-05-15] MEDS: IOPAMIDOL-300 CONTRAST 30 ML VIAL (ORAL USE) PO PRN ×2 (15:14→16:30)
--- NOTE | 2018-05-15 17:20 | CT ---
EXAMINATION TYPE: CT abdomen pelvis w con DATE OF EXAM: 05/15/2018 COMPARISON: 05/12/2018 HISTORY: Abdominal distention CT DLP: 365.4 mGycm Automated exposure control for dose reduction was used. TECHNIQUE: Helical acquisition of images was performed from the lung bases through the pelvis. CONTRAST: Performed with Oral Contrast and with IV Contrast, patient injected with 100 mL of Isovue 300. FINDINGS: There is patchy interstitial and airspace infiltrate at the lung bases. There is 12 mm noncalcified n odule in the left lower lobe. There is no pericardial effusion. There is small hiatal hernia. There is diaphragmatic pleural calcification at the right lung base. Liver shows no focal defect. Gal lbladder is distended and measures 3.7 cm. There is no evidence of a pancreatic mass. Spleen appears intact. The bile ducts are not dilated. There is no adrenal mass. Kidneys show satisfactory contrast opacification. Left kidney is smaller th an the right. There is decreased cortical opacification of left kidney on the delayed images consiste nt with some decreased function. There is left-sided renal mild cortical thinning. There is no hydron ephrosis. There is no retroperitoneal adenopathy. There is mild ascites. Bladder distends smoothly. T here is no evidence of a bowel obstruction. There is right-sided inguinal hernia that contains small bowel loops. There is no incarceration. There is compression fracture of L1 vertebra 20% anterior wed ging. This has progressed compared to last CT scan. IMPRESSION: THERE IS LEFT LOWER LOBE NODULE AND LOWER LOBE PULMONARY INFILTRATES UNCHANGED. THERE IS NEW BILATERA L SMALL PLEURAL EFFUSIONS. ACUTE L1 COMPRESSION FRACTURE. THERE IS NEW ABDOMINAL ASCITES COMPARED TO RECENT EXAM. RIGHT INGUINAL HERNIA INCREASED COMPARED TO R ECENT EXAM. NO EVIDENCE OF A BOWEL OBSTRUCTION.
[2018-05-16] MEDS: HEPARIN SODIUM,PORCINE 5,000 UNIT/ML 1 ML VIAL SQ SCH ×4 (00:11→23:03)
[2018-05-16] MEDS: MELATONIN 5 MG TABLET PO SCH ×2 (00:11→23:10)
--- NOTE | 2018-05-16 02:46 | P.PN ---
Subjective Progress Note Date: 05/14/18 Principal diagnosis: Ileus Patient is a 83-year-old male with a known history of gastritis, peptic ulcer disease and history of GI bleed, CK D stage III came to ER with complaints of worsening abdominal pain for the past 2-3 days. 03/07 when he came to the hospital. Mainly in the lower abdomen and sometimes radiate to the back. Otherwise denied any nausea vomiting. No fever no chills. No diarrhea. Denied any hematemesis or melena. Pain gets worse with movement. CT of the abdominal pelvis with contrast showed dilated pancreatobiliary system. Left lower lobe pulmonary nodule for which 3 months scan is recommended There is mildly dilated a fluid level right colon and transverse colon without wall thickening. This is consistent with ileus. No obstructing lesion. Enlarged prostate. 05/14/2018 Patient is still having a distended abdomen. Did have a small bowel movement yesterday. Continued on current management with IV fluids and general surgery is following. Denied any complaints of chest pain or shortness of breath. No other acute overnight issues. Abdominal x-ray showed a fluid level in the colon could represent liquid stool related to enteritis or ileus. All other review of systems negative except the above Current medications reviewed Objective - Vital Signs Vital signs: Vital Signs Temp 98.1 F 05/14/18 11:55 Pulse 94 05/14/18 20:42 Resp 16 05/14/18 20:42 BP 153/76 05/14/18 11:55 Pulse Ox 98 05/14/18 11:55 Intake & Output 05/14/18 05/14/18 05/15/18 06:59 18:59 06:59 Intake Total 375 Balance 375 Intake: Intake, IV Titration 375 Amount Sodium Chloride 0.9% 1, 375 000 ml @ 125 mls/hr IV . Q8H [facility] [place] Rx#:[id number] Other: Voiding Method Toilet Toilet # Voids 4 3 - Exam PHYSICAL EXAMINATION: Patient is lying in the bed comfortably, no acute distress, awake alert and oriented.. HEENT: Normocephalic. Neck is supple. Pupils reactive. Nostrils clear. Oral cavity is moist. Ears reveal no drainage. Neck reveals no JVD, carotid bruits, or thyromegaly. CHEST EXAMINATION: Trachea is central. Symmetrical expansion. Lung bledsoe clear to auscultation and percussion. CARDIAC: Normal S1, S2 with no gallops. No murmurs ABDOMEN: Soft. Distended. Bowel sounds normal to hyporactive. No abdominal bruits. Extremities: reveal no edema. No clubbing or cyanosis Neurologically awake, alert, oriented x3 with well-coordinated movements. No focal deficits noted Skin: No rash or skin lesions. Psychiatric: Coperative. Nonsuicidal Musculoskeletal: No joint swelling or deformity. Normal range of motion. - Labs CBC & Chem 7: 05/14/18 06:52 05/15/18 08:47 Labs: Abnormal Lab Results - Last 24 Hours (Table) 05/14/18 05/14/18 Range/Units 06:52 06:52 RBC 3.67 L (4.30-5.90) m/uL Hgb 11.6 L (13.0-17.5) gm/dL Hct 35.2 L (39.0-53.0) % Lymphocytes # 0.9 L (1.0-4.8) k/uL Sodium 133 L (137-145) mmol/L Calcium 8.1 L (8.4-10.2) mg/dL Total Protein 5.6 L (6.3-8.2) g/dL Albumin 3.1 L (3.5-5.0) g/dL Microbiology - Last 24 Hours (Table) 05/12/18 20:33 Blood Culture - Preliminary Blood No Growth after 24 hours Assessment and Plan Assessment: Abdominal distention likely due to ileus. No obstruction noted in the CT abdominal pelvis Dilated hepatobiliary ducts. BPH Hypertension Osteoarthritis CK D stage III B Left eye small cataract History of lower GI bleed and peptic ulcer disease Left lower lobe lung nodule. Follow-up recommended DVT prophylaxis Plan: Patient will be kept nothing by mouth. Continue with IV hydration and edema was ordered. No evidence of obstruction on the CT abdominal pelvis. Liver enzymes are not elevated. Follow-up CBC and BMP tomorrow. Continue the current management and further recommendations based on the clinical course. General surgery is following. Time with Patient: Greater than 30
--- NOTE | 2018-05-16 02:48 | P.PN ---
Subjective Progress Note Date: 05/15/18 Principal diagnosis: Ileus Patient is a 83-year-old male with a known history of gastritis, peptic ulcer disease and history of GI bleed, CK D stage III came to ER with complaints of worsening abdominal pain for the past 2-3 days. 03/07 when he came to the hospital. Mainly in the lower abdomen and sometimes radiate to the back. Otherwise denied any nausea vomiting. No fever no chills. No diarrhea. Denied any hematemesis or melena. Pain gets worse with movement. CT of the abdominal pelvis with contrast showed dilated pancreatobiliary system. Left lower lobe pulmonary nodule for which 3 months scan is recommended There is mildly dilated a fluid level right colon and transverse colon without wall thickening. This is consistent with ileus. No obstructing lesion. Enlarged prostate. 05/14/2018 Patient is still having a distended abdomen. Did have a small bowel movement yesterday. Continued on current management with IV fluids and general surgery is following. Denied any complaints of chest pain or shortness of breath. No other acute overnight issues. Abdominal x-ray showed a fluid level in the colon could represent liquid stool related to enteritis or ileus. 05/15/2018 Patient did not have any bowel movement so far. Abdominal distention is slightly worsened today. Otherwise patient denied any nausea or vomiting. No fever no chills. Repeat CT abdomen and pelvis was ordered. Discussed with the surgical team for further management. All other review of systems negative except the above Current medications reviewed Objective - Vital Signs Vital signs: Vital Signs Temp 97.9 F 05/15/18 21:00 Pulse 94 05/15/18 21:18 Resp 17 05/15/18 21:00 BP 141/79 05/15/18 21:00 Pulse Ox 97 05/15/18 21:00 Intake & Output 05/15/18 05/15/18 05/16/18 06:59 18:59 06:59 Intake Total 1375 500 Output Total 300 Balance 1375 200 Weight 51 kg Intake: Intake, IV Titration 1375 500 Amount Sodium Chloride 0.9% 1, 1375 500 000 ml @ 125 mls/hr IV . Q8H [facility] Rx#:[id number] Output: Urine 300 Other: Voiding Method Toilet Toilet # Voids 3 3 1 # Bowel Movements 1 - Exam PHYSICAL EXAMINATION: Patient is lying in the bed comfortably, no acute distress, awake alert and oriented.. HEENT: Normocephalic. Neck is supple. Pupils reactive. Nostrils clear. Oral cavity is moist. Ears reveal no drainage. Neck reveals no JVD, carotid bruits, or thyromegaly. CHEST EXAMINATION: Trachea is central. Symmetrical expansion. Lung bledsoe clear to auscultation and percussion. CARDIAC: Normal S1, S2 with no gallops. No murmurs ABDOMEN: Soft. Distended. Bowel sounds normal to hyporactive. No abdominal bruits. Extremities: reveal no edema. No clubbing or cyanosis Neurologically awake, alert, oriented x3 with well-coordinated movements. No focal deficits noted Skin: No rash or skin lesions. Psychiatric: Coperative. Nonsuicidal Musculoskeletal: No joint swelling or deformity. Normal range of motion. - Labs CBC & Chem 7: 05/14/18 06:52 05/15/18 08:47 Labs: Abnormal Lab Results - Last 24 Hours (Table) 05/15/18 Range/Units 08:47 Sodium 133 L (137-145) mmol/L Carbon Dioxide 21 L (22-30) mmol/L Glucose 70 L (74-99) mg/dL Microbiology - Last 24 Hours (Table) 05/12/18 20:33 Blood Culture - Preliminary Blood No Growth after 48 hours Assessment and Plan Assessment: Abdominal distention due to ileus. No obstruction noted in the CT abdominal pelvis Dilated hepatobiliary ducts. BPH Hypertension Osteoarthritis CK D stage III B Left eye small cataract History of lower GI bleed and peptic ulcer disease Left lower lobe lung nodule. Follow-up recommended DVT prophylaxis Plan: Patient will be kept nothing by mouth. Continue with IV hydration and edema was ordered. No evidence of obstruction on the CT abdominal pelvis. Liver enzymes are not elevated. Follow-up CBC and BMP tomorrow. Continue the current management and further recommendations based on the clinical course. General surgery is following.
[2018-05-16] MEDS: SODIUM CHLORIDE 0.9% 1,000 ML IV SCH ×2 (04:48→12:30)
[2018-05-16] MEDS: SYMBICORT 160-4.5 MCG INHALER INHALATION SCH ×2 (07:54→19:17)
[2018-05-16] MEDS: IPRATROPIUM-ALBUTEROL 3 ML NEB IH SCH ×4 (07:54→19:19)
[2018-05-16 08:55] LABS: Basophils % (A) 0 %; Eosinophils # (A) 0.2 k/uL (0-0.7); Eosinophils % (A) 3 %; HCT 34.2 % (39.0-53.0); HGB 11.2 gm/dL (13.0-17.5); Lymphocytes # (A) 0.7 k/uL (1.0-4.8); Lymphocytes % (A) 11 %; MCH 31.6 pg (25.0-35.0); MCHC 32.7 g/dL (31.0-37.0); MCV 96.6 fL (80.0-100.0); Monocytes # (A) 0.5 k/uL (0-1.0); Monocytes % (A) 7 %; Neutrophils % (A) 75 %; Platelet Count 254 k/uL (150-450); RBC 3.54 m/uL (4.30-5.90); RDW 12.4 % (11.5-15.5); WBC 6.7 k/uL (3.8-10.6)
[2018-05-16] MEDS: PANTOPRAZOLE 40 MG/10 ML VIAL IVP SCH (09:01)
[2018-05-16 09:14] LABS: Calcium 8.4 mg/dL (8.4-10.2); Potassium 4.1 mmol/L (3.5-5.1)
--- NOTE | 2018-05-16 09:58 | P.PN ---
Subjective Progress Note Date: 05/16/18 83-year-old male seen this morning at the bedside currently is denying any abdominal pain when questioning abdomen less distended. Abdominal x-ray report reviewed summary new abdominal ascites compared to recent exam right inguinal hernia increase compared to recently exam no evidence of a bowel obstruction there is a right-sided inguinal hernia containing small bowel loops. No evidence of incarceration patient states he had a bowel movement last night. Patient is asking for something to eat Objective - Vital Signs Vital signs: Vital Signs Temp 97.4 F L 05/16/18 05:00 Pulse 90 05/16/18 07:56 Resp 16 05/16/18 05:00 BP 122/68 05/16/18 05:00 Pulse Ox 97 05/16/18 05:00 Intake & Output 05/15/18 05/16/18 05/16/18 18:59 06:59 18:59 Intake Total 1500 Output Total 1100 Balance 400 Weight 51 kg Intake: Intake, IV Titration 1500 Amount Sodium Chloride 0.9% 1, 1500 000 ml @ 125 mls/hr IV . Q8H [facility] Rx#:[id number] Output: Urine 1100 Other: Voiding Method Toilet Toilet Toilet Urinal Urinal # Voids 3 3 # Bowel Movements 1 1 - Exam Physical exam 83-year-old male resting in bed states abdominal pain feeling better" Lungs good air movement bilaterally on room air no shortness of breath heart S1-S2 audible regular denying chest pain abdomen less distended nontender firm. Hypoactive bowel tones states abdominal discomfort improved no nausea no vomiting Extremities no edema noted - Labs CBC & Chem 7: 05/16/18 08:15 05/16/18 08:15 Labs: Abnormal Lab Results - Last 24 Hours (Table) 05/16/18 05/16/18 Range/Units 08:15 08:15 RBC 3.54 L (4.30-5.90) m/uL Hgb 11.2 L (13.0-17.5) gm/dL Hct 34.2 L (39.0-53.0) % Lymphocytes # 0.7 L (1.0-4.8) k/uL Sodium 132 L (137-145) mmol/L Carbon Dioxide 19 L (22-30) mmol/L Glucose 63 L (74-99) mg/dL Microbiology - Last 24 Hours (Table) 05/12/18 20:33 Blood Culture - Preliminary Blood No Growth after 72 hours Assessment and Plan Assessment: Impression Present on admission abdominal pain with abdominal distention no bowel movement for 5 days Abdominal x-ray obtained on the show no small bowel obstruction or free air Air-fluid levels in the colon could represent colonic ileus per abdominal x-ray CAT scan of the abdomen pelvis without contrast report reviewed numerous diverticuli in the descending and sigmoid colon no diverticulitis Abdominal x-ray images done on the no evidence of a large bowel obstruction few prominent loops of small bowel likely on the basis of a small bowel ileus Abdominal x-ray on May 15 report indicates no evidence of a bowel obstruction right inguinal hernia increased compared to prior exam new abdominal ascites noted Plan Start clear liquid diet advance as tolerated Further surgical recommendations pending IV fluid for hydration DVT and GI prophylaxis We'll follow with you The above impression and plan of care have been discussed and directed by signing physician. Mary Enamorado nurse practitioner acting as scribe for signing physician.
--- NOTE | 2018-05-16 10:02 | P.CNPUL ---
History of Present Illness Consult date: 05/16/18 Reason for consult: dyspnea, cough, pulmonary fibrosis, abnormal CXR/CT Chief complaint: Abnormal computed tomography scan and solitary pulmonary nodule History of present illness: Pulmonary consult dated 05/16/2018 83-year-old male who apparently presented to the emergency room on May 12 for abdominal pain she was going on for 2 or 3 days prior to admission to the ER. The pain is located in the lower abdomen and apparently radiates to his back area. The patient apparently denied any fever chills nausea vomiting sweats diarrhea constipation or any urinary complaints for that matter. The patient is apparently worse with movement. It was described as a sharp pain and a scale of 1-10 it was an 8. He's never had any pain like this before. Anyway, he was admitted for the abdominal pain and that has been worked up by the primary service and surgery. Apparently, according to the surgeon, this is a nonsurgical issue. We were consulted because of an abnormal scan showing some interstitial changes at the bases and a pulmonary nodule at the left lung base. As it turns out, the patient does see my partner, Dr. Pacheco. Some interstitial lung disease although it's not clear as to whether or not Dr. Pacheco is aware of the nodule. The patient is having some mild shortness of breath but is at baseline. This is from his underlying pulmonary fibrosis. In addition, he apparently has a history of hypertension DJD and a previous episode of pneumonia. He also has a history of cataracts. He was last seen by my partner in December of this year. Apparently also, on pulmonary function testing , he has some obstruction with reversibility and was started on some updrafts and Symbicort. Again, his issues are non-lung related on this admission. The CT of the abdomen is reviewed. Additional small pulmonary nodule at the left base. This will need follow-up. In addition, the interstitial changes are seen at the lung bases. Review of Systems A 14 point review of system is positive for abdominal pain which is sharp and radiates to the back. It is currently being evaluated by the primary service and surgery. It appears to be nonsurgical. Past Medical History Past Medical History: Eye Disorder, Hypertension, Osteoarthritis (OA), Pneumonia Additional Past Medical History / Comment(s): Lower GI bleed, peptic ulcer, gastritis, normocytic anemia, past pneumonia and pt states since then he has had "spots" on his lungs, CKD stage III, L eye small cataract. History of Any Multi-Drug Resistant Organisms: None Reported Past Surgical History: Adenoidectomy, Hernia Repair, Tonsillectomy Additional Past Surgical History / Comment(s): colonoscopies/egds, lt inguinal hernia Past Anesthesia/Blood Transfusion Reactions: No Reported Reaction Additional Past Anesthesia/Blood Transfusion Reaction / Comment(s): Pt states he has received blood in past without reaction. Smoking Status: Never smoker - Past Family History Father Family Medical History: Myocardial Infarction (MS) Additional Family Medical History / Comment(s): Father had heart disease. He lived till age 87 Mother Family Medical History: Myocardial Infarction (MS) Additional Family Medical History / Comment(s): Mother had heart disease. She lived till age 95 Medications and Allergies Home Medications Medication Instructions Recorded Confirmed Type Acetaminophen [Tylenol] 325 mg PO Q4H PRN 12/10/14 05/12/18 History Ca/D3/Mag/Zinc/Alexandre/Klaus/Mgbor 1 each PO DAILY 12/10/14 05/12/18 History [Caltrate 600+D3+Min Chew Tab] Cholecalciferol [Vitamin D3] 400 unit PO DAILY 12/10/14 05/12/18 History Multivit-Min/FA/Lycopene/Lut 1 each PO DAILY 12/10/14 05/12/18 History [Centrum Silver Tablet] amLODIPine BESYLATE [Norvasc] 5 mg PO DAILY 12/10/14 05/12/18 History Budesonide-Formot 160-4.5 Mcg 2 puff INHALATION RT-BID #1 puff 12/14/14 Rx [Symbicort 160-4.5 Mcg Inhaler] Ipratropium-Albuterol Nebulize 3 ml IH QID #120 ampul.neb 12/14/14 05/12/18 Rx [Duoneb 0.5 mg-3 mg/3 ml Soln] Ascorbic Acid [Vitamin C] 1,000 mg PO DAILY 05/12/18 05/12/18 History Loperamide HCl [Imodium A-D] 2 mg PO BID 05/12/18 05/12/18 History Allergies Allergy/AdvReac Type Severity Reaction Status Date / Time Penicillins Allergy Rash/Hives Verified 05/12/18 20:31 Physical Exam Osteopathic Statement: *. No significant issues noted on an osteopathic structural exam other than those noted in the History and Physical/Consult. Vitals: Vital Signs Temp Pulse Pulse Resp BP Pulse Ox 05/16/18 07:56 90 05/16/18 05:00 97.4 F L 91 16 122/68 97 05/15/18 21:18 94 05/15/18 21:04 92 05/15/18 21:00 97.9 F 80 17 141/79 97 05/15/18 18:11 90 05/15/18 17:58 92 05/15/18 13:00 97.6 F 95 14 137/70 100 05/15/18 11:52 95 05/15/18 11:42 87 Intake and Output 05/15/18 05/16/18 05/16/18 22:59 06:59 14:59 Intake Total 500 1000 Output Total 300 800 Balance 200 200 Intake: Intake, IV Titration 500 1000 Amount Sodium Chloride 0.9% 1, 500 1000 000 ml @ 125 mls/hr IV . Q8H [facility] Rx#:[id number] Output: Urine 300 800 Other: Voiding Method Toilet Toilet Urinal Urinal # Voids 1 3 # Bowel Movements 1 1 No acute distress, oriented 3. Patient not using any supplemental oxygen. HEENT examination is grossly unremarkable. Mucous membranes are moist. No oral lesions. Neck supple. Full range of motion. No adenopathy thyromegaly or neck vein distention. Cardiovascular examination reveals regular rhythm rate. S1-S2 normal. No S3 or S4. No discernible murmur noted. Lungs reveal minimal basilar crackles. The patient is not restricted. No rhonchi or wheezes. Breath sounds equal bilaterally. Abdomen some mild lower abdominal tenderness on palpation. The abdomen is much softer though. No mass. Bowel sounds are heard. Extremities are intact. No cyanosis clubbing or edema. Skin is without rash or lesion. Neurologic examination is brief but nonfocal. Results - Laboratory Findings CBC and BMP: 05/16/18 08:15 05/16/18 08:15 PT/INR, D-dimer PT 10.0 sec (9.0-12.0) 05/12/18 20:33 INR 1.0 (<1.2) 05/12/18 20:33 Abnormal lab findings: Abnormal Labs 05/12/18 05/12/18 05/12/18 20:33 20:33 20:33 RBC 4.27 L Hgb Hct Neutrophils # 8.5 H Lymphocytes # 0.8 L Sodium 131 L Chloride 92 L Carbon Dioxide BUN 23 H Glucose 101 H Calcium CK-MB (CK-2) 3.2 H Total Protein Albumin Urine Ketones 05/12/18 05/14/18 05/14/18 20:33 06:52 06:52 RBC 3.67 L Hgb 11.6 L Hct 35.2 L Neutrophils # Lymphocytes # 0.9 L Sodium 133 L Chloride Carbon Dioxide BUN Glucose Calcium 8.1 L CK-MB (CK-2) Total Protein 5.6 L Albumin 3.1 L Urine Ketones 1+ H 05/15/18 05/16/18 05/16/18 08:47 08:15 08:15 RBC 3.54 L Hgb 11.2 L Hct 34.2 L Neutrophils # Lymphocytes # 0.7 L Sodium 133 L 132 L Chloride Carbon Dioxide 21 L 19 L BUN Glucose 70 L 63 L Calcium CK-MB (CK-2) Total Protein Albumin Urine Ketones - Diagnostic Findings Chest x-ray: report reviewed, image reviewed CT scan - chest: report reviewed, image reviewed (Chest x-ray, labs and medications are reviewed) Assessment and Plan Assessment: Assessment Abdominal pain, thought to be nonsurgical, and being evaluated and treated by the primary service and surgery. Interstitial lung disease, being followed by my partner 1.2 cm solitary pulmonary nodule, noncalcified, left lower lobe which will need follow-up History of BPH History of hypertension History of DJD Stage III chronic kidney disease History of lower GI bleed History of cataracts Plan: Plan dated 05/16/2018 The patient is currently not having any issues with his breathing. He is currently at baseline. His interstitial lung disease/pulmonary fibrosis is being followed by my partner he was last seen in the office in December of this year. The patient does have a 1.2 cm nodule, noncalcified, left lower lobe. It was not seen on a computed tomography scan dated 2014. The patient will need to follow my partner in the office for both his pulmonary fibrosis and the new nodule. A PET scan will likely be reported. The patient is a lifelong nonsmoker. Alternatively, a follow-up computed tomography scan in 4-6 months might be ordered as well. Additional recommendations and suggestions are forthcoming. The patient will be seen as needed. Time with Patient: Greater than 30
--- NOTE | 2018-05-16 13:25 | P.PN ---
Subjective Progress Note Date: 05/16/18 Principal diagnosis: Abdominal ileus New-onset ascites/pleural effusion 05/16/2018; Patient is seen and evaluated in the room at bedside; he is an 83-year-old male patient with history of gastritis, peptic ulcer disease and GI bleed along with chronic kidney disease stage IV who presented with abdominal pain Objective - Vital Signs Vital signs: Vital Signs Temp 97.4 F L 05/16/18 05:00 Pulse 90 05/16/18 07:56 Resp 16 05/16/18 05:00 BP 122/68 05/16/18 05:00 Pulse Ox 97 05/16/18 05:00 Intake & Output 05/15/18 05/16/18 05/16/18 18:59 06:59 18:59 Intake Total 1500 Output Total 1100 Balance 400 Weight 51 kg Intake: Intake, IV Titration 1500 Amount Sodium Chloride 0.9% 1, 1500 000 ml @ 125 mls/hr IV . Q8H [facility] Rx#:[id number] Output: Urine 1100 Other: Voiding Method Toilet Toilet Urinal # Voids 3 3 # Bowel Movements 1 1 - Exam No acute distress, oriented 3. Patient not using any supplemental oxygen. HEENT examination is grossly unremarkable. Mucous membranes are moist. No oral lesions. Neck supple. Full range of motion. No adenopathy thyromegaly or neck vein distention. Cardiovascular examination reveals regular rhythm rate. S1-S2 normal. No S3 or S4. No discernible murmur noted. Lungs reveal minimal basilar crackles. The patient is not restricted. No rhonchi or wheezes. Breath sounds equal bilaterally. Abdomen some mild lower abdominal tenderness on palpation. The abdomen is much softer though. No mass. Bowel sounds are heard. Extremities are intact. No cyanosis clubbing or edema. Skin is without rash or lesion. Neurologic examination is brief but nonfocal. - Labs CBC & Chem 7: 05/16/18 08:15 05/16/18 08:15 Labs: Abnormal Lab Results - Last 24 Hours (Table) 05/15/18 05/16/18 05/16/18 Range/Units 08:47 08:15 08:15 RBC 3.54 L (4.30-5.90) m/uL Hgb 11.2 L (13.0-17.5) gm/dL Hct 34.2 L (39.0-53.0) % Lymphocytes # 0.7 L (1.0-4.8) k/uL Sodium 133 L 132 L (137-145) mmol/L Carbon Dioxide 21 L 19 L (22-30) mmol/L Glucose 70 L 63 L (74-99) mg/dL Microbiology - Last 24 Hours (Table) 05/12/18 20:33 Blood Culture - Preliminary Blood No Growth after 72 hours Assessment and Plan Assessment: New-onset ascites and pleural effusion Abdominal distention due to ileus. No obstruction noted in the CT abdominal pelvis Dilated hepatobiliary ducts. BPH Hypertension Osteoarthritis CK D stage III B Left eye small cataract History of lower GI bleed and peptic ulcer disease Left lower lobe lung nodule. Follow-up recommended DVT prophylaxis Plan: Consult GI for further recommendations on new-onset ascites and pulmonary service of further recommendations and new-onset pleural effusion; Patient will be kept nothing by mouth. Continue with IV hydration and edema was ordered. No evidence of obstruction on the CT abdominal pelvis. Liver enzymes are not elevated. Follow-up CBC and BMP tomorrow. Continue the current management and further recommendations based on the clinical course. General surgery is following.
[2018-05-16] MEDS: ACETAMINOPHEN TAB 325 MG TAB PO PRN (23:04)
[2018-05-17] MEDS: IPRATROPIUM-ALBUTEROL 3 ML NEB IH SCH ×4 (08:13→19:58)
[2018-05-17] MEDS: SYMBICORT 160-4.5 MCG INHALER INHALATION SCH ×2 (08:14→19:58)
[2018-05-17] MEDS: SODIUM CHLORIDE 0.9% 1,000 ML IV SCH ×4 (08:24→22:37)
[2018-05-17] MEDS: PANTOPRAZOLE 40 MG TABLET PO SCH (08:25)
[2018-05-17] MEDS: HEPARIN SODIUM,PORCINE 5,000 UNIT/ML 1 ML VIAL SQ SCH ×3 (08:25→23:21)
[2018-05-17 09:09] LABS: Basophils % (A) 0 %; Eosinophils # (A) 0.3 k/uL (0-0.7); Eosinophils % (A) 5 %; HCT 36.4 % (39.0-53.0); Lymphocytes # (A) 0.7 k/uL (1.0-4.8); Lymphocytes % (A) 9 %; MCH 32.2 pg (25.0-35.0); MCHC 33.1 g/dL (31.0-37.0); MCV 97.2 fL (80.0-100.0); Monocytes # (A) 0.4 k/uL (0-1.0); Monocytes % (A) 5 %; Neutrophils # (A) 5.7 k/uL (1.3-7.7); Neutrophils % (A) 79 %; Platelet Count 295 k/uL (150-450); RBC 3.75 m/uL (4.30-5.90); RDW 12.2 % (11.5-15.5); WBC 7.3 k/uL (3.8-10.6)
[2018-05-17 09:29] LABS: Calcium 8.6 mg/dL (8.4-10.2); Potassium 3.7 mmol/L (3.5-5.1)
--- NOTE | 2018-05-17 12:40 | P.PN ---
Subjective Progress Note Date: 05/17/18 Principal diagnosis: Abdominal pain Patient still having vague abdominal pains. Denies nausea or vomiting. He is on clear liquids but asking for more to eat. He is passing flatus. He describes constipation however. He is afebrile. Objective - Vital Signs Vital signs: Vital Signs Temp 97.9 F 05/17/18 05:00 Pulse 97 05/17/18 11:57 Resp 18 05/17/18 11:48 BP 126/68 05/17/18 05:00 Pulse Ox 96 05/17/18 05:00 Intake & Output 05/16/18 05/17/18 05/17/18 18:59 06:59 18:59 Intake Total 1000 665 Balance 1000 665 Weight 51 kg Intake: Intake, IV Titration 1000 375 Amount Sodium Chloride 0.9% 1, 1000 375 000 ml @ 125 mls/hr IV . Q8H [facility] Rx#:[id number] Oral 290 Other: Voiding Method Toilet Toilet Toilet Urinal # Voids 2 - Exam Abdomen: Soft, mild diffuse tenderness, no rebound or guarding - Labs CBC & Chem 7: 05/17/18 08:46 05/17/18 08:46 Labs: Abnormal Lab Results - Last 24 Hours (Table) 05/17/18 05/17/18 Range/Units 08:46 08:46 RBC 3.75 L (4.30-5.90) m/uL Hgb 12.0 L (13.0-17.5) gm/dL Hct 36.4 L (39.0-53.0) % Lymphocytes # 0.7 L (1.0-4.8) k/uL Sodium 131 L (137-145) mmol/L Glucose 147 H (74-99) mg/dL Microbiology - Last 24 Hours (Table) 05/12/18 20:33 Blood Culture - Preliminary Blood No Growth after 96 hours Assessment and Plan (1) Abdominal pain Narrative/Plan: Patient complaints of abdominal pain. Seems to be improving. CAT scan results noted. We'll slowly advance diet. Possible hernia repair per Dr. Hobson. Current Visit: Yes Status: Acute Code(s): R10.9 - UNSPECIFIED ABDOMINAL PAIN SNOMED Code(s): 82483249
--- NOTE | 2018-05-17 13:21 | P.PN ---
Subjective Progress Note Date: 05/17/18 Principal diagnosis: Abdominal ileus New-onset ascites/pleural effusion 05/16/2018; Patient is seen and evaluated in the room at bedside; he is an 83-year-old male patient with history of gastritis, peptic ulcer disease and GI bleed along with chronic kidney disease stage IV who presented with abdominal pain 05/17/2018 Patient still having vague abdominal pains. Denies nausea or vomiting. He is on clear liquids but asking for more to eat. He is passing flatus. He describes constipation however. He is afebrile. New onset pleural effusion and 1.2 cm noncalcified nodule in the left lower lobe ; patient has been seen by pulmonary service; The patient is currently not having any issues with his breathing. He is currently at baseline. His interstitial lung disease/pulmonary fibrosis is being followed by pulmonary service as outpatient. The patient does have a 1.2 cm nodule, noncalcified, left lower lobe. It was not seen on a computed tomography scan dated 2014. The patient will need to follow up with pulmonary service in the office for both his pulmonary fibrosis and the new nodule. A PET scan will likely be reported. The patient is a lifelong nonsmoker. Alternatively, a follow-up computed tomography scan in 4-6 months might be ordered as well. Objective - Vital Signs Vital signs: Vital Signs Temp 97.9 F 05/17/18 05:00 Pulse 97 05/17/18 11:57 Resp 18 05/17/18 11:48 BP 126/68 05/17/18 05:00 Pulse Ox 96 05/17/18 05:00 Intake & Output 05/16/18 05/17/18 05/17/18 18:59 06:59 18:59 Intake Total 1000 665 Balance 1000 665 Weight 51 kg Intake: Intake, IV Titration 1000 375 Amount Sodium Chloride 0.9% 1, 1000 375 000 ml @ 125 mls/hr IV . Q8H [facility] Rx#:[id number] Oral 290 Other: Voiding Method Toilet Toilet Toilet Urinal # Voids 2 - Exam No acute distress, oriented 3. Patient not using any supplemental oxygen. HEENT examination is grossly unremarkable. Mucous membranes are moist. No oral lesions. Neck supple. Full range of motion. No adenopathy thyromegaly or neck vein distention. Cardiovascular examination reveals regular rhythm rate. S1-S2 normal. No S3 or S4. No discernible murmur noted. Lungs reveal minimal basilar crackles. The patient is not restricted. No rhonchi or wheezes. Breath sounds equal bilaterally. Abdomen some mild lower abdominal tenderness on palpation. The abdomen is much softer though. No mass. Bowel sounds are heard. Extremities are intact. No cyanosis clubbing or edema. Skin is without rash or lesion. Neurologic examination is brief but nonfocal. - Labs CBC & Chem 7: 05/17/18 08:46 05/17/18 08:46 Labs: Abnormal Lab Results - Last 24 Hours (Table) 05/17/18 05/17/18 Range/Units 08:46 08:46 RBC 3.75 L (4.30-5.90) m/uL Hgb 12.0 L (13.0-17.5) gm/dL Hct 36.4 L (39.0-53.0) % Lymphocytes # 0.7 L (1.0-4.8) k/uL Sodium 131 L (137-145) mmol/L Glucose 147 H (74-99) mg/dL Microbiology - Last 24 Hours (Table) 05/12/18 20:33 Blood Culture - Preliminary Blood No Growth after 96 hours Assessment and Plan Assessment: New-onset ascites and pleural effusion; pulmonary recommendations are noted and appreciated; although GI to see the patient and make recommendations Abdominal distention due to ileus. No obstruction noted in the CT abdominal pelvis Dilated hepatobiliary ducts. BPH Hypertension Osteoarthritis CK D stage III B Left eye small cataract History of lower GI bleed and peptic ulcer disease Left lower lobe lung nodule. Follow-up recommended DVT prophylaxis Plan: Consult GI for further recommendations on new-onset ascites and pulmonary service of further recommendations and new-onset pleural effusion; Patient will be kept nothing by mouth. Continue with IV hydration and edema was ordered. No evidence of obstruction on the CT abdominal pelvis. Liver enzymes are not elevated. Follow-up CBC and BMP tomorrow. Continue the current management and further recommendations based on the clinical course. General surgery is following. Time with Patient: Greater than 30
[2018-05-17] MEDS: ACETAMINOPHEN TAB 325 MG TAB PO PRN (20:23)
[2018-05-17] MEDS: MELATONIN 5 MG TABLET PO SCH (23:21)
[2018-05-18] MEDS: ACETAMINOPHEN TAB 325 MG TAB PO PRN ×3 (02:55→20:41)
[2018-05-18] MEDS: SODIUM CHLORIDE 0.9% 1,000 ML IV SCH ×3 (07:33→23:30)
[2018-05-18] MEDS: PANTOPRAZOLE 40 MG TABLET PO SCH (07:35)
[2018-05-18] MEDS: HEPARIN SODIUM,PORCINE 5,000 UNIT/ML 1 ML VIAL SQ SCH ×3 (07:36→23:29)
[2018-05-18] MEDS: SYMBICORT 160-4.5 MCG INHALER INHALATION SCH ×2 (09:02→20:50)
[2018-05-18] MEDS: IPRATROPIUM-ALBUTEROL 3 ML NEB IH SCH ×4 (09:02→20:50)
[2018-05-18 09:53] LABS: Basophils % (A) 0 %; Eosinophils # (A) 0.3 k/uL (0-0.7); Eosinophils % (A) 6 %; HCT 31.9 % (39.0-53.0); HGB 10.5 gm/dL (13.0-17.5); Lymphocytes # (A) 0.7 k/uL (1.0-4.8); Lymphocytes % (A) 12 %; MCH 31.1 pg (25.0-35.0); MCHC 32.9 g/dL (31.0-37.0); MCV 94.4 fL (80.0-100.0); Mean Platelet Volume 7.3; Monocytes # (A) 0.4 k/uL (0-1.0); Monocytes % (A) 7 %; Neutrophils # (A) 4.2 k/uL (1.3-7.7); Neutrophils % (A) 72 %; Platelet Count 259 k/uL (150-450); RBC 3.38 m/uL (4.30-5.90); RDW 12.6 % (11.5-15.5); WBC 5.8 k/uL (3.8-10.6)
[2018-05-18 10:05] LABS: Calcium 8.3 mg/dL (8.4-10.2); Potassium 3.9 mmol/L (3.5-5.1)
[2018-05-18] MEDS ORDERED: MAGNESIUM CITRATE 296 ML BOTTLE PO ONE (12:25)
--- NOTE | 2018-05-18 12:25 | P.PN ---
Subjective Progress Note Date: 05/18/18 Principal diagnosis: Abdominal pain Patient doing well today. Pain seems improved. He did have a bowel movement this morning. White blood cell count is normal. Still feels somewhat bloated and constipated however. Objective - Vital Signs Vital signs: Vital Signs Temp 98.0 F 05/18/18 05:00 Pulse 88 05/18/18 09:12 Resp 16 05/18/18 05:00 BP 118/56 05/18/18 05:00 Pulse Ox 96 05/18/18 05:00 Intake & Output 05/17/18 05/18/18 05/18/18 18:59 06:59 18:59 Intake Total 1490 Output Total 1900 Balance -410 Intake: Intake, IV Titration 900 Amount Sodium Chloride 0.9% 1, 900 000 ml @ 125 mls/hr IV . Q8H [facility] Rx#:[id number] Oral 590 Output: Urine 1900 Other: Voiding Method Toilet Toilet Toilet Urinal # Voids 3 2 - Exam Abdomen: Soft, mild distention, nontender - Labs CBC & Chem 7: 05/18/18 08:38 05/18/18 08:38 Labs: Abnormal Lab Results - Last 24 Hours (Table) 05/18/18 05/18/18 Range/Units 08:38 08:38 RBC 3.38 L (4.30-5.90) m/uL Hgb 10.5 L (13.0-17.5) gm/dL Hct 31.9 L (39.0-53.0) % Lymphocytes # 0.7 L (1.0-4.8) k/uL Sodium 132 L (137-145) mmol/L Glucose 155 H (74-99) mg/dL Calcium 8.3 L (8.4-10.2) mg/dL Microbiology - Last 24 Hours (Table) 05/12/18 20:33 Blood Culture - Preliminary Blood No Growth after 120 hours Assessment and Plan (1) Abdominal pain Narrative/Plan: We'll order magnesium citrate for constipation. Continue diet as tolerated. Await formal GI evaluation. Current Visit: Yes Status: Acute Code(s): R10.9 - UNSPECIFIED ABDOMINAL PAIN SNOMED Code(s): 53586831
[2018-05-18] MEDS: MELATONIN 5 MG TABLET PO SCH (23:29)
[2018-05-19] MEDS: SODIUM CHLORIDE 0.9% 1,000 ML IV SCH ×2 (03:47→17:08)
--- NOTE | 2018-05-19 04:44 | P.CONS ---
History of Present Illness - Reason for Consult Consult date: 05/17/18 Ascites Requesting physician: Belkis Sands - Chief Complaint Abdominal pain - History of Present Illness The patient is a pleasant 83-year-old male with a known history of CKD, hypertension, prior peptic ulcer disease and large of bleeding, normocytic anemia, osteoarthritis and cataracts who presents with lower abdominal pain. The patient described 2-3 days of sharp lower abdominal pain which was worse with movement. The patient does report a history of loose bowel movements at baseline for which she takes Imodium. Patient also has a prior history of lower GI bleed. He denies any hematochezia or melena at this time. The patient had evaluation with a CT which showed pulmonary infiltrate and a possible lung nodule as well as a compression fracture of the spine and new onset ascites with question of dilated pancreatic and intrahepatic ducts. The patient denies any jaundice, dark urine or jaciel-colored stool. His liver enzymes were noted to be normal on presentation. He also had a normal CBC and INR. The patient was reporting improvement in abdominal pain and some constipation and magnesium citrate was ordered for the patient. Review of Systems Constitutional: Denies any fatigue, change in weight Eyes: Denies any change in vision, pain denies Nose: Denies any congestion, rhinorrhea Ears: Denies any change in hearing, new onset tinnitus, but does report being hard of hearing at baseline Lungs: Denies any wheezing, shortness of breath, cough, or hemoptysis Cardiac: Denies any pain in chest, shortness of breath, lower extremity swelling Abdomen: As per history of present illness Skin: Denies any new rashes or pruritus Urine: Denies any dysuria or hematuria Neuro: Denies any change in mental status, new focal deficits Past Medical History Past Medical History: Eye Disorder, Hypertension, Osteoarthritis (OA), Pneumonia Additional Past Medical History / Comment(s): Lower GI bleed, peptic ulcer, gastritis, normocytic anemia, past pneumonia and pt states since then he has had "spots" on his lungs, CKD stage III, L eye small cataract. History of Any Multi-Drug Resistant Organisms: None Reported Past Surgical History: Adenoidectomy, Hernia Repair, Tonsillectomy Additional Past Surgical History / Comment(s): colonoscopies/egds, lt inguinal hernia Past Anesthesia/Blood Transfusion Reactions: No Reported Reaction Additional Past Anesthesia/Blood Transfusion Reaction / Comm: Pt states he has received blood in past without reaction. Smoking Status: Never smoker - Past Family History Father Family Medical History: Myocardial Infarction ([place]) Additional Family Medical History / Comment(s): Father had heart disease. He lived till age 87 Mother Family Medical History: Myocardial Infarction ([place]) Additional Family Medical History / Comment(s): Mother had heart disease. She lived till age 95 Medications and Allergies Home Medications Medication Instructions Recorded Confirmed Type Acetaminophen [Tylenol] 325 mg PO Q4H PRN 12/10/14 05/12/18 History Ca/D3/Mag/Zinc/Alexandre/Klaus/Mgbor 1 each PO DAILY 12/10/14 05/12/18 History [Caltrate 600+D3+Min Chew Tab] Cholecalciferol [Vitamin D3] 400 unit PO DAILY 12/10/14 05/12/18 History Multivit-Min/FA/Lycopene/Lut 1 each PO DAILY 12/10/14 05/12/18 History [Centrum Silver Tablet] amLODIPine BESYLATE [Norvasc] 5 mg PO DAILY 12/10/14 05/12/18 History Budesonide-Formot 160-4.5 Mcg 2 puff INHALATION RT-BID #1 puff 12/14/14 Rx [Symbicort 160-4.5 Mcg Inhaler] Ipratropium-Albuterol Nebulize 3 ml IH QID #120 ampul.neb 12/14/14 05/12/18 Rx [Duoneb 0.5 mg-3 mg/3 ml Soln] Ascorbic Acid [Vitamin C] 1,000 mg PO DAILY 05/12/18 05/12/18 History Loperamide HCl [Imodium A-D] 2 mg PO BID 05/12/18 05/12/18 History Allergies Allergy/AdvReac Type Severity Reaction Status Date / Time Penicillins Allergy Rash/Hives Verified 05/12/18 20:31 Physical Exam Vitals: Vital Signs Temp Pulse Pulse Pulse Resp BP Pulse Ox 05/17/18 21:00 98.1 F 97 16 152/82 96 05/17/18 20:08 93 05/17/18 20:02 92 05/17/18 16:10 94 05/17/18 16:03 96 05/17/18 16:00 81 101 H 18 05/17/18 12:45 97.9 F 101 H 18 159/80 98 05/17/18 11:57 97 05/17/18 11:48 99 18 05/17/18 08:23 99 05/17/18 08:13 99 18 05/17/18 05:00 97.9 F 81 16 126/68 96 Intake and Output 05/17/18 05/17/18 05/18/18 14:59 22:59 06:59 Intake Total 590 Output Total 1300 600 Balance -710 -600 Intake: Oral 590 Output: Urine 1300 600 Other: Voiding Method Toilet Toilet # Voids 3 Constitutional: Lying in bed in no apparent distress Head: normocephalic/atraumatic Eyes: No icterus, no injection Mouth: Moist mucous membranes Nose: No discharge noted Neck: Trachea midline Lungs: Normal air entry in all lung bledsoe, no wheezing appreciated Abdomen: Soft, nontender, nondistended, normal bowel sounds. No guarding or rigidity Skin: No rashes, no jaundice Neuro: Awake alert and oriented, no focal deficits Results CBC & Chem 7: 05/18/18 08:38 05/18/18 08:38 Labs: Abnormal Lab Results - Last 24 Hours (Table) 05/17/18 05/17/18 Range/Units 08:46 08:46 RBC 3.75 L (4.30-5.90) m/uL Hgb 12.0 L (13.0-17.5) gm/dL Hct 36.4 L (39.0-53.0) % Lymphocytes # 0.7 L (1.0-4.8) k/uL Sodium 131 L (137-145) mmol/L Glucose 147 H (74-99) mg/dL Microbiology - Last 24 Hours (Table) 05/12/18 20:33 Blood Culture - Preliminary Blood No Growth after [address] scan - abdomen: report reviewed (CT scan reporting pulmonary infiltrate and possible nodule, compression fracture of the spine, new onset ascites and question of dilated pancreatic duct and intrahepatic ducts) Assessment and Plan (1) Dilated pancreatic duct Narrative/Plan: CT imaging showed possible dilation of pancreatic and intrahepatic ducts. This should be further evaluated with either MRI of the abdomen or EUS in the outpatient setting, either prior to discharge or in the subcutaneous setting after discharge (within 3 months). He denies any weight loss, night sweats or other B symptoms to suggest malignancy, however this should be further evaluated. Current Visit: Yes Status: Acute Code(s): K86.89 - OTHER SPECIFIED DISEASES OF PANCREAS SNOMED Code(s): 811227564 (2) Abdominal pain Narrative/Plan: This may be secondary to constipation in the setting of Imodium use for treatment of loose bowel movements. Currently improved. Current Visit: Yes Status: Acute Code(s): R10.9 - UNSPECIFIED ABDOMINAL PAIN SNOMED Code(s): 56332753 (3) Anemia Narrative/Plan: Stable with no signs or symptoms of GI bleeding. Current Visit: No Status: Acute Code(s): D64.9 - ANEMIA, UNSPECIFIED SNOMED Code(s): 325285574 Plan: Supportive care Okay for diet Ascites appears to be too small to be tapped. If ascites can be tapped, would suggest diagnostic studies including protein, albumin, cell count with differential, and cytology. Patient had findings of dilation of pancreatic duct and intrahepatics. No signs or symptoms of malignancy with the patient denying weight loss, night sweats or other B symptoms. However this should be evaluated in the subacute setting with either an MRI prior to discharge or an endoscopic ultrasound in the outpatient setting to rule out underlying pancreatic cyst, malignancy or other findings. Patient's abdominal pain is improved overall. It is likely that he was using too much Imodium for treatment of loose bowel movements in the outpatient setting. He needs him citrate was given to the patient and in addition we'll start the patient on daily MiraLAX, to be held if the patient begins to have loose bowel movements again. The case and the patient's symptoms and findings were discussed with him and his at length. They understand the need for judicious use of diarrheal medications. In addition they understand that follow-up the patient's CT findings both of the lungs and the pancreas/hepatic system will be needed. Thank you for allowing us to participate in the care of this patient we will continue to follow.
[2018-05-19] MEDS: ACETAMINOPHEN TAB 325 MG TAB PO PRN ×2 (06:34→19:25)
[2018-05-19] MEDS: IPRATROPIUM-ALBUTEROL 3 ML NEB IH SCH ×4 (07:19→20:02)
[2018-05-19] MEDS: SYMBICORT 160-4.5 MCG INHALER INHALATION SCH ×2 (07:19→20:02)
[2018-05-19] MEDS: HEPARIN SODIUM,PORCINE 5,000 UNIT/ML 1 ML VIAL SQ SCH ×3 (07:50→23:31)
[2018-05-19] MEDS: PANTOPRAZOLE 40 MG TABLET PO SCH (07:50)
[2018-05-19] MEDS: POLYETHYLENE GLYCOL 3350 17 GM POWD.PACK PO SCH (07:50)
--- NOTE | 2018-05-19 10:16 | P.PN ---
Subjective Progress Note Date: 05/19/18 83-year-old gentleman seen sitting up on the edge of the bed states has had several loose stools since the citrate a mag given last night abdomen slightly distended labs are pending GIs eval noted and appreciated. Ascites too small to be tapped . Imaging showed dilatation of the pancreatic duct and intrahepatics no signs or symptoms to suggest malignancy. Patient denies weight loss night sweats. GIs recommending that this could be followed up in an outpatient setting with an MRI or endoscopic ultrasound Objective - Vital Signs Vital signs: Vital Signs Temp 97.9 F 05/19/18 05:00 Pulse 84 05/19/18 07:31 Resp 16 05/19/18 05:00 BP 137/69 05/19/18 05:00 Pulse Ox 96 05/19/18 05:00 Intake & Output 05/18/18 05/19/18 05/19/18 18:59 06:59 18:59 Intake Total 2330 1400 Balance 2330 1400 Weight 51 kg Intake: Intake, IV Titration 1150 1400 Amount Sodium Chloride 0.9% 1, 1150 1400 000 ml @ 125 mls/hr IV . Q8H [facility] Rx#:[id number] Oral 1180 Other: Voiding Method Toilet Toilet Toilet # Voids 4 2 - Exam Physical exam 83-year-old male resting in bed states abdominal pain feeling better" states has had several loose stools last night after having citrated mag Lungs good air movement bilaterally on room air no shortness of breath no cough noted heart S1-S2 audible regular denying chest pain abdomen less distended nontender firm. Hypoactive bowel tones states abdominal discomfort improved no nausea no vomiting Extremities no edema noted - Labs CBC & Chem 7: 05/19/18 10:56 05/19/18 10:56 Labs: Abnormal Lab Results - Last 24 Hours (Table) 05/18/18 Range/Units 08:38 Sodium 132 L (137-145) mmol/L Glucose 155 H (74-99) mg/dL Calcium 8.3 L (8.4-10.2) mg/dL Microbiology - Last 24 Hours (Table) 05/12/18 20:33 Blood Culture - Final Blood No Growth after 144 hours Assessment and Plan Assessment: Impression Present on admission abdominal pain with abdominal distention no bowel movement for 5 days Abdominal x-ray obtained on the show no small bowel obstruction or free air Air-fluid levels in the colon could represent colonic ileus per abdominal x-ray CAT scan of the abdomen pelvis without contrast report reviewed numerous diverticuli in the descending and sigmoid colon no diverticulitis Abdominal x-ray images done on the no evidence of a large bowel obstruction few prominent loops of small bowel likely on the basis of a small bowel ileus Abdominal x-ray on May 15 report indicates no evidence of a bowel obstruction right inguinal hernia increased compared to prior exam new abdominal ascites noted Ascites noted on imaging small to be tapped Imaging showed findings of dilatation of pancreatic duct and intrahepatic need to be followed in the outpatient setting History of constipation possible overuse of laxatives in the outpatient setting Plan Tentative plan outpatient inguinal hernia repair timing possible this Saturday Low fiber diet Bowel stimulant program MiraLAX as ordered hold for loose stools IV fluid for hydration DVT and GI prophylaxis We'll follow with you The above impression and plan of care have been discussed and directed by signing physician. Mary Enamorado nurse practitioner acting as scribe for signing physician.
[2018-05-19 11:42] LABS: Basophils % (A) 0 %; Eosinophils # (A) 0.2 k/uL (0-0.7); Eosinophils % (A) 2 %; HCT 34.3 % (39.0-53.0); HGB 11.2 gm/dL (13.0-17.5); Lymphocytes # (A) 0.7 k/uL (1.0-4.8); Lymphocytes % (A) 9 %; MCH 31.7 pg (25.0-35.0); MCHC 32.8 g/dL (31.0-37.0); MCV 96.7 fL (80.0-100.0); Mean Platelet Volume 7.1; Monocytes # (A) 0.6 k/uL (0-1.0); Monocytes % (A) 7 %; Neutrophils # (A) 5.9 k/uL (1.3-7.7); Neutrophils % (A) 77 %; Platelet Count 307 k/uL (150-450); RBC 3.54 m/uL (4.30-5.90); RDW 12.3 % (11.5-15.5); WBC 7.6 k/uL (3.8-10.6)
[2018-05-19 11:51] LABS: Albumin 3.5 g/dL (3.5-5.0); Calcium 8.9 mg/dL (8.4-10.2); Potassium 4.7 mmol/L (3.5-5.1); Total Bilirubin 0.5 mg/dL (0.2-1.3); Total Protein 6.2 g/dL (6.3-8.2)
--- NOTE | 2018-05-19 14:59 | P.PN ---
Subjective Progress Note Date: 05/18/18 Principal diagnosis: Abdominal ileus New-onset ascites/pleural effusion 05/16/2018; Patient is seen and evaluated in the room at bedside; he is an 83-year-old male patient with history of gastritis, peptic ulcer disease and GI bleed along with chronic kidney disease stage IV who presented with abdominal pain 05/17/2018 Patient still having vague abdominal pains. Denies nausea or vomiting. He is on clear liquids but asking for more to eat. He is passing flatus. He describes constipation however. He is afebrile. New onset pleural effusion and 1.2 cm noncalcified nodule in the left lower lobe ; patient has been seen by pulmonary service; The patient is currently not having any issues with his breathing. He is currently at baseline. His interstitial lung disease/pulmonary fibrosis is being followed by pulmonary service as outpatient. The patient does have a 1.2 cm nodule, noncalcified, left lower lobe. It was not seen on a computed tomography scan dated 2014. The patient will need to follow up with pulmonary service in the office for both his pulmonary fibrosis and the new nodule. A PET scan will likely be reported. The patient is a lifelong nonsmoker. Alternatively, a follow-up computed tomography scan in 4-6 months might be ordered as well. 05/18/2018 Patient is seen for follow-up for abdominal pain; patient reports improvement in pain and reports a bowel movement this morning; continues to feel bloated and constipated; vital signs remained stable; platelet count is normal Objective - Vital Signs Vital signs: Vital Signs Temp 98.0 F 05/18/18 05:00 Pulse 88 05/18/18 09:12 Resp 16 05/18/18 05:00 BP 118/56 05/18/18 05:00 Pulse Ox 96 05/18/18 05:00 Intake & Output 05/17/18 05/18/18 05/18/18 18:59 06:59 18:59 Intake Total 1490 Output Total 1900 Balance -410 Intake: Intake, IV Titration 900 Amount Sodium Chloride 0.9% 1, 900 000 ml @ 125 mls/hr IV . Q8H [facility] Rx#:[id number] Oral 590 Output: Urine 1900 Other: Voiding Method Toilet Toilet Toilet Urinal # Voids 3 2 - Exam No acute distress, oriented 3. Patient not using any supplemental oxygen. HEENT examination is grossly unremarkable. Mucous membranes are moist. No oral lesions. Neck supple. Full range of motion. No adenopathy thyromegaly or neck vein distention. Cardiovascular examination reveals regular rhythm rate. S1-S2 normal. No S3 or S4. No discernible murmur noted. Lungs reveal minimal basilar crackles. The patient is not restricted. No rhonchi or wheezes. Breath sounds equal bilaterally. Abdomen some mild lower abdominal tenderness on palpation. The abdomen is much softer though. No mass. Bowel sounds are heard. Extremities are intact. No cyanosis clubbing or edema. Skin is without rash or lesion. Neurologic examination is brief but nonfocal. - Labs CBC & Chem 7: 05/19/18 10:56 05/19/18 10:56 Labs: Abnormal Lab Results - Last 24 Hours (Table) 05/18/18 05/18/18 Range/Units 08:38 08:38 RBC 3.38 L (4.30-5.90) m/uL Hgb 10.5 L (13.0-17.5) gm/dL Hct 31.9 L (39.0-53.0) % Lymphocytes # 0.7 L (1.0-4.8) k/uL Sodium 132 L (137-145) mmol/L Glucose 155 H (74-99) mg/dL Calcium 8.3 L (8.4-10.2) mg/dL Microbiology - Last 24 Hours (Table) 05/12/18 20:33 Blood Culture - Preliminary Blood No Growth after 120 hours Assessment and Plan Assessment: 1. New-onset ascites and pleural effusion; pulmonary recommendations are noted and appreciated; although GI to see the patient and make recommendations 2. Abdominal distention due to ileus. No obstruction noted in the CT abdominal pelvis 3. Dilated hepatobiliary ducts. 4. BPH 5. Hypertension 6. Osteoarthritis 7. CK D stage III B 8. Left lower lobe lung nodule. Follow-up recommended . 9. DVT prophylaxis Plan: Consult GI for further recommendations on new-onset ascites and pulmonary service of further recommendations and new-onset pleural effusion; Patient will be kept nothing by mouth. Continue with IV hydration and edema was ordered. No evidence of obstruction on the CT abdominal pelvis. Liver enzymes are not elevated. Follow-up CBC and BMP tomorrow. Continue the current management and further recommendations based on the clinical course. General surgery is following. Time with Patient: Greater than 30
[2018-05-19 21:19] VITALS: RESP 16
--- NOTE | 2018-05-19 21:49 | PN ---
PROGRESS NOTE DATE OF SERVICE: May 19, 2018. PRESENTING COMPLAINT: Loose stools. INTERVAL HISTORY: This patient admitted with ileus, has had multiple bowel movements today. He is tolerating some diet. Has been out of bed. Mild abdominal pain. Breathing is stable. No nausea, vomiting. REVIEW OF SYSTEMS: Done for constitutional, cardiovascular, GI, pulmonary and relevant findings as above. CURRENT MEDICATIONS: Reviewed and include DuoNeb; Symbicort, Protonix, MiraLAX, IV fluids. PHYSICAL EXAMINATION: VITAL SIGNS: Temperature 97.9, pulse 92, respiratory 18, blood pressure 150/75, pulse ox 97% on room air. GENERAL APPEARANCE: Sitting up, tired-appearing. EYES: Pupils equal. Conjunctivae pale. HEENT: External appearance of nose and ears normal. Oral cavity normal. NECK: JVD unable to assess. Mass not palpable. RESPIRATORY effort normal. LUNGS fair air entry. CARDIOVASCULAR: 1st and 2nd sounds normal. No edema. ABDOMEN: Soft, minimally tender. No guarding or rigidity. Liver and spleen not palpable. PSYCHIATRY: Alert and oriented x3. Mood and affect is normal. INVESTIGATIONS: White count 7.6, hemoglobin 11.2, potassium 4.7. BUN and creatinine is normal. ASSESSMENT: 1. Acute ileus appears to be clinically improving. The patient is tolerating a diet. 2. Benign prostatic hypertrophy. 3. Essential hypertension. 4. Primary osteoarthritis. 5. Left lobe lung nodule to be followed by Pulmonary. 6. Normocytic anemia. 7. Stage 3 chronic kidney disease. 8. Chronic pulmonary fibrosis. PLAN: Continue current medication and treatment plan. We will await diarrhea to settle down before patient is discharged. Care was discussed with the patient. Questions answered. MMODL / IJN: [id number] /
[2018-05-19] MEDS: MELATONIN 5 MG TABLET PO SCH (23:31)
--- NOTE | 2018-05-20 00:54 | P.PN ---
Subjective Progress Note Date: 05/19/18 Principal diagnosis: Abdominal pain, dilated intrahepatic and pancreatic duct Patient is doing well, tolerating his diet. Decrease abdominal pain. Objective - Vital Signs Vital signs: Vital Signs Temp 97.5 F L 05/19/18 21:00 Pulse 93 05/19/18 21:00 Resp 16 05/19/18 21:00 BP 137/68 05/19/18 21:00 Pulse Ox 98 05/19/18 21:00 Intake & Output 05/19/18 05/19/18 05/20/18 06:59 18:59 06:59 Intake Total 1400 120 Balance 1400 120 Weight 51 kg Intake: Intake, IV Titration 1400 Amount Sodium Chloride 0.9% 1, 1400 000 ml @ 75 mls/hr IV . [id number] [facility] Rx#:[id number] Oral 120 Other: Voiding Method Toilet Toilet # Voids 2 3 1 # Bowel Movements 2 - Exam On physical examination, patient appears comfortable in no apparent distress. HEAD: Normocephalic, atraumatic. EYES: No scleral icterus. No conjunctival injection. MOUTH: No lesions, tongue midline. NECK: Trachea midline, no gross abnormalities. CHEST: Clear to auscultation with no wheezing or rhonchi appreciated. HEART: Regular rate and rhythm. ABDOMEN: Soft Bowel sounds are positive. No organomegaly. No guarding or rigidity. EXTREMITIES: No pedal edema. SKIN: No rashes, no jaundice. NEUROLOGIC: Alert and oriented. No focal deficits. - Labs CBC & Chem 7: 05/19/18 10:56 05/19/18 10:56 Labs: Abnormal Lab Results - Last 24 Hours (Table) 05/19/18 05/19/18 Range/Units 10:56 10:56 RBC 3.54 L (4.30-5.90) m/uL Hgb 11.2 L (13.0-17.5) gm/dL Hct 34.3 L (39.0-53.0) % Lymphocytes # 0.7 L (1.0-4.8) k/uL Sodium 131 L (137-145) mmol/L Chloride 96 L (98-107) mmol/L Total Protein 6.2 L (6.3-8.2) g/dL Microbiology - Last 24 Hours (Table) 05/12/18 20:33 Blood Culture - Final Blood No Growth after 144 hours Assessment and Plan (1) Dilated pancreatic duct Narrative/Plan: CT imaging showed possible dilation of pancreatic and intrahepatic ducts. This should be further evaluated with either MRI of the abdomen or EUS in the outpatient setting, either prior to discharge or in the subcutaneous setting after discharge (within 3 months). He denies any weight loss, night sweats or other B symptoms to suggest malignancy, however this should be further evaluated. Current Visit: Yes Status: Acute Code(s): K86.89 - OTHER SPECIFIED DISEASES OF PANCREAS SNOMED Code(s): 135586452 (2) Abdominal pain Narrative/Plan: This may be secondary to constipation in the setting of Imodium use for treatment of loose bowel movements. Currently improved. Current Visit: Yes Status: Acute Code(s): R10.9 - UNSPECIFIED ABDOMINAL PAIN SNOMED Code(s): 90756602 (3) Anemia Narrative/Plan: Stable with no signs or symptoms of GI bleeding. Current Visit: No Status: Acute Code(s): D64.9 - ANEMIA, UNSPECIFIED SNOMED Code(s): 128964534 Plan: Supportive care Okay for diet Ascites appears to be too small to be tapped. If ascites can be tapped, would suggest diagnostic studies including protein, albumin, cell count with differential, and cytology. Patient had findings of dilation of pancreatic duct and intrahepatics. No signs or symptoms of malignancy with the patient denying weight loss, night sweats or other B symptoms. However this should be evaluated in the subacute setting with either an MRI prior to discharge or an endoscopic ultrasound in the outpatient setting to rule out underlying pancreatic cyst, malignancy or other findings. Patient's abdominal pain is improved overall. It is likely that he was using too much Imodium for treatment of loose bowel movements in the outpatient setting. He needs him citrate was given to the patient and in addition we'll start the patient on daily MiraLAX, to be held if the patient begins to have loose bowel movements again. The case and the patient's symptoms and findings were discussed with him and his at length. They understand the need for judicious use of diarrheal medications. In addition they understand that follow-up the patient's CT findings both of the lungs and the pancreas/hepatic system will be needed. Thank you for allowing us to participate in the care of this patient we will continue to follow.
[2018-05-20] MEDS: ACETAMINOPHEN TAB 325 MG TAB PO PRN (03:58)
[2018-05-20 04:28] VITALS: BP 135/68; TEMP 97.6
[2018-05-20] MEDS: POLYETHYLENE GLYCOL 3350 17 GM POWD.PACK PO SCH (07:47)
[2018-05-20] MEDS: HEPARIN SODIUM,PORCINE 5,000 UNIT/ML 1 ML VIAL SQ SCH (07:47)
[2018-05-20] MEDS: PANTOPRAZOLE 40 MG TABLET PO SCH (07:47)
[2018-05-20] MEDS: IPRATROPIUM-ALBUTEROL 3 ML NEB IH SCH ×2 (08:16→11:54)
[2018-05-20] MEDS: SYMBICORT 160-4.5 MCG INHALER INHALATION SCH (08:16)
[2018-05-20 08:21] LABS: Basophils % (A) 0 %; Eosinophils # (A) 0.5 k/uL (0-0.7); Eosinophils % (A) 7 %; HCT 33.8 % (39.0-53.0); HGB 11.2 gm/dL (13.0-17.5); Lymphocytes # (A) 1.2 k/uL (1.0-4.8); Lymphocytes % (A) 16 %; MCH 31.6 pg (25.0-35.0); MCHC 33.1 g/dL (31.0-37.0); MCV 95.3 fL (80.0-100.0); Mean Platelet Volume 6.9; Monocytes # (A) 0.5 k/uL (0-1.0); Monocytes % (A) 7 %; Neutrophils # (A) 4.8 k/uL (1.3-7.7); Neutrophils % (A) 66 %; Platelet Count 323 k/uL (150-450); RBC 3.55 m/uL (4.30-5.90); RDW 12.5 % (11.5-15.5); WBC 7.2 k/uL (3.8-10.6)
[2018-05-20 08:34] LABS: Albumin 3.3 g/dL (3.5-5.0); Calcium 8.6 mg/dL (8.4-10.2); Potassium 4.4 mmol/L (3.5-5.1); Total Bilirubin 0.5 mg/dL (0.2-1.3); Total Protein 5.9 g/dL (6.3-8.2)
--- NOTE | 2018-05-20 08:36 | P.PN ---
Subjective Progress Note Date: 05/20/18 83-year-old seen this morning sitting up in bed taking a diet states has had several frequent watery stools last night currently is stating the abdominal discomfort "better almost gone no nausea no vomiting abdomen is less distended decrease abdominal pain Objective - Vital Signs Vital signs: Vital Signs Temp 97.6 F 05/20/18 04:27 Pulse 88 05/20/18 08:16 Resp 16 05/20/18 04:27 BP 135/68 05/20/18 04:27 Pulse Ox 98 05/20/18 04:27 Intake & Output 05/19/18 05/20/18 05/20/18 18:59 06:59 18:59 Intake Total 120 Balance 120 Weight 51 kg Intake: Oral 120 Other: Voiding Method Toilet Toilet Toilet # Voids 3 1 # Bowel Movements 2 - Exam Physical exam 83-year-old male sitting up in bed taking a diet reports abdominal pain improved less abdominal pain less distention Lungs good air movement bilaterally on room air no shortness of breath no cough noted heart S1-S2 audible regular denying chest pain abdomen less distended nontender firm. Hypoactive bowel tones states abdominal discomfort improved no nausea no vomiting tolerating a diet urinating with no difficulty Extremities no edema noted - Labs CBC & Chem 7: 05/20/18 07:43 05/19/18 10:56 Labs: Abnormal Lab Results - Last 24 Hours (Table) 05/19/18 05/19/18 05/20/18 Range/Units 10:56 10:56 07:43 RBC 3.54 L 3.55 L (4.30-5.90) m/uL Hgb 11.2 L 11.2 L (13.0-17.5) gm/dL Hct 34.3 L 33.8 L (39.0-53.0) % Lymphocytes # 0.7 L (1.0-4.8) k/uL Sodium 131 L (137-145) mmol/L Chloride 96 L (98-107) mmol/L Total Protein 6.2 L (6.3-8.2) g/dL Assessment and Plan Assessment: Impression Present on admission abdominal pain with abdominal distention no bowel movement for 5 days Abdominal x-ray obtained on the show no small bowel obstruction or free air Air-fluid levels in the colon could represent colonic ileus per abdominal x-ray CAT scan of the abdomen pelvis without contrast report reviewed numerous diverticuli in the descending and sigmoid colon no diverticulitis Abdominal x-ray images done on the no evidence of a large bowel obstruction few prominent loops of small bowel likely on the basis of a small bowel ileus Abdominal x-ray on May 15 report indicates no evidence of a bowel obstruction right inguinal hernia increased compared to prior exam new abdominal ascites noted Ascites noted on imaging small to be tapped Imaging showed findings of dilatation of pancreatic duct and intrahepatic need to be followed in the outpatient setting History of constipation possible overuse of laxatives in the outpatient setting Plan Tentative plan outpatient inguinal hernia repair timing possible this Saturday Low fiber diet Bowel stimulant program MiraLAX as ordered hold for loose stools IV fluid for hydration DVT and GI prophylaxis We'll follow with you The above impression and plan of care have been discussed and directed by signing physician. Mary Enamorado nurse practitioner acting as scribe for signing physician.
[2018-05-20 11:56] VITALS: PULSE 84
--- NOTE | 2018-05-21 05:37 | DS ---
DISCHARGE SUMMARY DATE OF ADMISSION: 05/13/2018 DATE OF DISCHARGE: 05/20/2018 FINAL DIAGNOSES: 1. Acute ileus, present on admission. 2. Benign prostatic hypertrophy. 3. Essential hypertension. 4. Primary osteoarthritis. 5. Left lung nodule being followed by Dr. Morales. 6. Normocytic anemia, possibly secondary to chronic kidney disease. 7. Chronic kidney disease stage 3. 8. Chronic pulmonary fibrosis. 9. Inguinal hernia repair for outpatient. HOSPITAL COURSE: Patient presented with abdominal pain for 2 or 3 days, felt to have ileus. Initially had constipation then to that a lot of diarrhea. Metamucil was added. Patient is tolerating a diet, doing better by the time of discharge. Seen by Dr. Hobson from General Surgery. Will do inguinal surgery as an outpatient. Also seen by Dr. Mathur from GI. The patient had some dilatation of the pancreatic and intrahepatic ducts and he will follow up further as an outpatient for the same. Also seen by Dr. Morales. Patient has pulmonary fibrosis, lung nodule. The patient overall doing better today. On examination, temperature 97.6, pulse 81, respirations 16, blood pressure 135/68, pulse ox 98% on room air. ABDOMEN: Soft, nontender. LUNGS: Fair entry. PSYCH: AO x3. INVESTIGATIONS: White count 7.2, hemoglobin 11.2. Potassium 4.4. The patient's CT scan of the abdomen and pelvis showed right-sided inguinal hernia, chronic compression fracture of the L1 vertebra, left lower lobe nodule, non significant amount of abdominal ascites. Follow up with Dr. Leija on 05/22/2018; Dr. Pacheco on 06/04/2018; Dr. Mathur on 06/18/2018; Dr. Hobson on 05/27/2018. Pulmonary is going to follow up with patient's lung nodule. MMODL / IJN: [id number] /
== END 2018-05-20 15:00 | disposition home or self-care (01) | DRG 389 ==
LOC: EC 17:47 → 4MS4W 23:06 → OBSVTOIN 05-13 05:47 → 3NMEDONC 05-13 05:49
PROVIDERS: ADMIT Hospitalist; ATTEND Hospitalist
PROC: 3E0234Z Introduction of Serum, Toxoid and Vaccine into Muscle, Percutaneous Approach (ICD-10-PCS; principal; 2018-05-13)
DX: K56.7 Ileus, unspecified (principal); N18.4 Chronic kidney disease, stage 4 (severe); R18.8 Other ascites; J90 Pleural effusion, not elsewhere classified; J84.10 Pulmonary fibrosis, unspecified; K86.89 Other specified diseases of pancreas; D63.1 Anemia in chronic kidney disease; R91.1 Solitary pulmonary nodule; Z23 Encounter for immunization; I12.9 Hypertensive chronic kidney disease with stage 1 through stage 4 chronic kidney disease, or unspecified chronic kidney disease; K40.90 Unilateral inguinal hernia, without obstruction or gangrene, not specified as recurrent; K44.9 Diaphragmatic hernia without obstruction or gangrene; N40.0 Benign prostatic hyperplasia without lower urinary tract symptoms; M47.816 Spondylosis without myelopathy or radiculopathy, lumbar region; M54.9 Dorsalgia, unspecified; M19.91 Primary osteoarthritis, unspecified site; H26.9 Unspecified cataract; Z79.51 Long term (current) use of inhaled steroids; Z79.899 Other long term (current) drug therapy; Z87.01 Personal history of pneumonia (recurrent); Z87.11 Personal history of peptic ulcer disease; Z87.19 Personal history of other diseases of the digestive system; Z88.0 Allergy status to penicillin; X50.0XXA Overexertion from strenuous movement or load, initial encounter; Z82.49 Family history of ischemic heart disease and other diseases of the circulatory system
CPT/HCPCS: 36415; 74019; 74021; 74176; 74177; 80048; 80053; 81003; 82150; 82550; 82553; 83605; 83690; 83735; 84484; 85025; 85610; 85730; 86850; 86900; 86901; 87040; 90686; 94640; 99285

== ENCOUNTER → 2018-06-30 | Outpatient (CLI) | payer MEDICARE ==
--- NOTE | 2018-06-30 16:54 | MR ---
EXAMINATION TYPE: MR lumbar spine wo con DATE OF EXAM: 06/30/2018 COMPARISON: Plain film 06/11/[address] abdomen pelvis 05/15/2018 HISTORY: Low back pain x1-2 months TECHNIQUE: Multiplanar, multisequence images of the lumbar spine were acquired. Retropulsion of the superior endplate of L1 causes mild anterior mass effect on the thecal sac, encro achment of approximately 4 to 5 mm on the spinal canal. L1-L2: Posterior broad-based disc bulge causes slight anterior mass effect on the thecal sac. No sign ificant central stenosis or foraminal encroachment. L2-L3: Facet arthropathy with hypertrophy ligamentum flavum encroaches causes mild posterior lateral mass effect on the thecal sac. No significant foraminal encroachment. No significant central stenosis , posterior broad-based disc bulge causes slight anterior mass effect on the thecal sac. L3-L4: Trefoil appearance of the thecal sac due to facet arthropathy and hypertrophy of ligamentum fl avum, posterior broad-based disc bulge causes anterior mass effect on the thecal sac. No significant central stenosis. Circumferential extension of endplate disc complex encroaches somewhat on the audra christian right greater than left. L4-L5: Facet arthropathy is present with hypertrophy ligamentum flavum resulting in a trefoil appeara nce of the thecal sac. Lateral extension of endplate disc complex likely contributed by the scoliosis results in some right-sided foraminal encroachment. No significant central stenosis. Posterior broad -based disc bulge causes mild anterior mass effect thecal sac. L5-S1: Circumferential posterior disc bulge causes slight anterior mass effect on the thecal sac, pos sibly contact the proximal S1 nerve roots. No central canal stenosis. Lateral extension of endplate d isc complex causes some foraminal encroachment on the right. Compression fracture at L1 has progressed since prior CT, there is loss of height of approximately 50 %, some retropulsion of the superior endplate causes mild anterior mass effect on the thecal sac. The re is resulting kyphosis. Low signal is present on T1 and T2-weighted sequences, linear low signal fo cus at the level of the superior endplate suggest chronic finding with sclerosis. Some intermediate s ignal also noted, there may be soft tissue component of the superior endplate of a compression fractu re at L1. There is a spinal curvature as noted on CT. No paraspinal masses are identified. Conus med ullaris has a normal appearance. Probable hemangioma present in the L4 vertebral body. Lumbar vertebr al bodies show multilevel spondylosis. There is loss of disc height signal at intervertebral levels e specially at L4-5, L3-4, L1-2 and L2-3. Small cystic focus associated with the upper pole the right k idney measures 12 mm. Left kidney is small in relation to the right kidney. IMPRESSION: Osteoporotic compression fracture L1 as described. Scoliosis, degenerative disc disease, multilevel f oraminal encroachment.
== END ==
LOC: RADMRIMAIN 15:27
PROVIDERS: ATTEND Family Medicine
DX: M48.56XA Collapsed vertebra, not elsewhere classified, lumbar region, initial encounter for fracture (principal); M51.36 Other intervertebral disc degeneration, lumbar region
CPT/HCPCS: 72148

== ENCOUNTER 2018-08-02 14:23 | Inpatient (IN) | payer MEDICARE ==
[2018-08-02] MEDS ORDERED: KETOROLAC 30 MG/ML 1 ML VIAL IVP STA (14:57)
--- NOTE | 2018-08-02 15:12 | ED ---
Chest Pain HPI - General Chief Complaint: Chest Pain Stated Complaint: Rib pain Time Seen by Provider: 08/02/18 14:45 Source: patient, RN notes reviewed Mode of arrival: ambulatory Limitations: no limitations - History of Present Illness Initial Comments: This 83-year-old male who presents with complaints of sharp right-sided chest pain is been going on for about a week intermittently. He states he gets worse with certain movements not associated with deep breathing no fevers chills cough phlegm production no trauma reported he does state however he was doing a lot of lifting about a week ago. He states it even hurt climbing onto the emergency department stretcher. Currently at rest he is pain-free. No other modifying factors at this time MD Complaint: chest pain - Related Data Home Medications Medication Instructions Recorded Confirmed Cholecalciferol [Vitamin D3] 400 unit PO DAILY 12/10/14 08/02/18 Multivit-Min/FA/Lycopene/Lut 1 tab PO DAILY 12/10/14 08/02/18 [Centrum Silver Tablet] amLODIPine BESYLATE [Norvasc] 5 mg PO DAILY 12/10/14 08/02/18 Ascorbic Acid [Vitamin C] 1,000 mg PO DAILY 05/12/18 08/02/18 HYDROcodone/APAP 5-325MG [[place] 1 tab PO Q6HR PRN 08/02/18 08/02/18 5-325] Previous Rx's Medication Instructions Recorded Budesonide-Formot 160-4.5 Mcg 2 puff INHALATION RT-BID #1 puff 12/14/14 [Symbicort 160-4.5 Mcg Inhaler] Allergies Allergy/AdvReac Type Severity Reaction Status Date / Time Penicillins Allergy Rash/Hives Verified 08/02/18 15:49 Review of Systems ROS Statement: Those systems with pertinent positive or pertinent negative responses have been documented in the HPI. ROS Other: All systems not noted in ROS Statement are negative. EKG Findings - EKG Results: EKG: interpreted by MERLIN, sinus rhythm (Normal sinus rhythm of 84. Interval 142 QRS duration 80 QT since QTC 376/[address]-T wave changes.) Past Medical History Past Medical History: Eye Disorder, Hypertension, Osteoarthritis (OA), Pneumonia Additional Past Medical History / Comment(s): Lower GI bleed, peptic ulcer, gastritis, normocytic anemia, past pneumonia and pt states since then he has had "spots" on his lungs, CKD stage III, L eye small cataract. History of Any Multi-Drug Resistant Organisms: None Reported Past Surgical History: Adenoidectomy, Hernia Repair, Tonsillectomy Additional Past Surgical History / Comment(s): colonoscopies/egds, lt inguinal hernia Past Anesthesia/Blood Transfusion Reactions: No Reported Reaction Additional Past Anesthesia/Blood Transfusion Reaction / Comment(s): Pt states he has received blood in past without reaction. Past Psychological History: No Psychological Hx Reported Smoking Status: Never smoker - Past Family History Father Family Medical History: Myocardial Infarction ([place]) Additional Family Medical History / Comment(s): Father had heart disease. He lived till age 87 Mother Family Medical History: Myocardial Infarction ([place]) Additional Family Medical History / Comment(s): Mother had heart disease. She lived till age 95 General Exam - General Exam Comments Initial Comments: This is a well-developed asthenic appearing male who is awake alert oriented 3 Limitations: no limitations General appearance: alert, in no apparent distress Head exam: Present: atraumatic, normocephalic, normal inspection Eye exam: Present: normal appearance, PERRL, EOMI. Absent: scleral icterus, conjunctival injection, periorbital swelling ENT exam: Present: normal exam, mucous membranes moist Neck exam: Present: normal inspection, full ROM, other (No stridor JVD or bruits ). Absent: tenderness, meningismus, lymphadenopathy Respiratory exam: Present: normal lung sounds bilaterally, chest wall tenderness (Reproducible tenderness palpation over the right chest wall no step- off or crepitation no lesions seen.). Absent: respiratory distress, wheezes, rales, rhonchi, stridor Cardiovascular Exam: Present: regular rate, normal rhythm, normal heart sounds. Absent: systolic murmur, diastolic murmur, rubs, gallop, clicks GI/Abdominal exam: Present: soft, normal bowel sounds. Absent: distended, tenderness, guarding, rebound, rigid, bruit, pulsatile mass Extremities exam: Present: normal inspection, full ROM, normal capillary refill. Absent: tenderness, pedal edema, joint swelling, calf tenderness Back exam: Present: normal inspection Neurological exam: Present: alert, oriented X3, CN II-XII intact Psychiatric exam: Present: normal affect, normal mood Skin exam: Present: warm, dry, intact, normal color. Absent: rash Course Vital Signs 08/02/18 14:34 Temperature 97.6 F Pulse Rate 91 Respiratory 18 Rate Blood Pressure 127/87 O2 Sat by Pulse 100 Oximetry Chest Pain MDM - MDM I did discuss the findings with the patient is pain so reproducible EKG was unremarkable however the enzyme elevation is noted on the lab work including d- dimer and troponin. He will be admitted for evaluation. I did discuss the case with Dr. gillespie. Disposition Clinical Impression: Chest pain, Unstable angina pectoris, Renal insufficiency syndrome, Elevated d- dimer, Elevated troponin, Chest wall pain Disposition: ADMITTED IP TO THIS HOSP Condition: Stable Referrals: Corwin Leija DO [Primary Care Provider] - 1-2 days
[2018-08-02 15:28] LABS: Basophils % (A) 0 %; Eosinophils # (A) 0.1 k/uL (0-0.7); Eosinophils % (A) 2 %; HCT 38.5 % (39.0-53.0); HGB 12.5 gm/dL (13.0-17.5); Lymphocytes # (A) 0.9 k/uL (1.0-4.8); Lymphocytes % (A) 11 %; MCH 30.8 pg (25.0-35.0); MCHC 32.4 g/dL (31.0-37.0); MCV 95.2 fL (80.0-100.0); Mean Platelet Volume 6.8; Monocytes # (A) 0.6 k/uL (0-1.0); Monocytes % (A) 7 %; Neutrophils # (A) 6.6 k/uL (1.3-7.7); Neutrophils % (A) 79 %; Platelet Count 301 k/uL (150-450); RBC 4.04 m/uL (4.30-5.90); WBC 8.4 k/uL (3.8-10.6)
[2018-08-02 15:37] LABS: Albumin 4.2 g/dL (3.5-5.0); Calcium 9.7 mg/dL (8.4-10.2); Magnesium 2.1 mg/dL (1.6-2.3); Potassium 4.8 mmol/L (3.5-5.1); Total Bilirubin 0.8 mg/dL (0.2-1.3); Total Protein 6.7 g/dL (6.3-8.2)
[2018-08-02 15:49] LABS: Partial Thromboplastin Time 25.2 sec (22.0-30.0); Prothrombin Time 10.4 sec (9.0-12.0)
[2018-08-02 16:03] LABS: Creatine Kinase MB 2.2 ng/mL (0.0-2.4)
[2018-08-02 16:09] LABS: Troponin I 0.042 ng/mL (0.000-0.034)
--- NOTE | 2018-08-02 16:09 | XR ---
EXAMINATION TYPE: XR chest 2V DATE OF EXAM: 08/02/2018 COMPARISON: 12/13/2014 HISTORY: 83-year-old male right-sided chest pain TECHNIQUE: PA and lateral views FINDINGS: The heart is normal size. Aorta within normal limits. COPD with moderate to advanced emphysema. Sever al irregular peripheral right upper lobe density probably pleural parenchymal scarring. There is foca l nodularity at the left base. Finding could represent nipple shadow. Prominent skinfold projecting a t the left midlung. No sam consolidation or pleural effusion. IMPRESSION: 1. Advanced COPD. 2. Some irregular patchy density peripheral right upper lobe likely pleural parenchymal scarring. Ear ly infiltrate is also possible. Follow-up recommended. 3. Nodularity left base could represent nipple shadow. Given increased risk for development of lung c ancer in this patient, nonemergent follow-up contrast-enhanced CT chest recommended to exclude a pulm onary nodule.
[2018-08-02 16:13] LABS: D-Dimer 1.04 mg/L FEU (<0.60)
[2018-08-02] MEDS ORDERED: HEPARIN SODIUM,PORCINE 5,000 UNIT/ML 1 ML VIAL IV ONE (17:13)
[2018-08-02] MEDS ORDERED: NITROGLYCERIN SL TABS 0.4 MG TAB SUBLINGUAL PRN (17:13)
[2018-08-02] MEDS ORDERED: HEPARIN SOD,PORK IN 0.45% NACL 25,000 UNIT in 0.45% NACL 1 250ML.BAG IV SCH (17:15)
[2018-08-02] MEDS: NITROGLYCERIN OINT 1 INCH/GM PACKET TOPICAL SCH ×2 (18:04→22:35)
[2018-08-02] MEDS ORDERED: MORPHINE SULFATE 2 MG/ML SYRINGE IVP STA (18:33)
--- NOTE | 2018-08-02 19:21 | NM ---
EXAMINATION TYPE: NM pul vent and perfuse DATE OF EXAM: 08/02/2018 COMPARISON: NONE HISTORY: TECHNIQUE: Utilizing inhalation of 69.9 mCi Tc 99m DTPA aerosol and intravenous injection of 5.08 mC i of Tc 99m MAA, ventilation and perfusion images are acquired post injection in multiple projections . FINDINGS: There are patchy small subsegmental matched defects in the periphery of both lungs consistent with ai rway disease. There is no ventilation/perfusion mismatch. IMPRESSION: Matched small defects related to severe airway disease. There is a low probability of pulmonary embol ism.
[2018-08-02] MEDS: SODIUM CHLORIDE 0.9% 1,000 ML IV SCH (20:41)
[2018-08-02] MEDS: HYDROcodone/APAP 5-325MG 1 EACH TAB PO PRN (20:50)
[2018-08-02] MEDS: SYMBICORT 160-4.5 MCG INHALER INHALATION SCH (20:55)
[2018-08-02] MEDS ORDERED: HYDROmorphone 0.5 MG/0.5 ML SYRINGE IVP PRN (22:05)
[2018-08-02] MEDS ORDERED: TEMAZEPAM 15 MG CAP PO PRN (22:23)
[2018-08-02] MEDS ORDERED: ALPRAZolam 0.25 MG TAB PO PRN (22:23)
[2018-08-02] MEDS ORDERED: ACETAMINOPHEN TAB 500 MG TAB PO PRN (22:23)
[2018-08-02] MEDS: MELATONIN 5 MG TABLET PO SCH (22:31)
[2018-08-02 22:47] LABS: Creatine Kinase MB 1.6 ng/mL (0.0-2.4); Troponin I 0.026 ng/mL (0.000-0.034)
[2018-08-03] MEDS: HYDROcodone/APAP 5-325MG 1 EACH TAB PO PRN ×2 (03:00→19:53)
[2018-08-03 04:33] LABS: Basophils % (A) 0 %; Eosinophils # (A) 0.1 k/uL (0-0.7); Eosinophils % (A) 2 %; Lymphocytes # (A) 1.3 k/uL (1.0-4.8); Lymphocytes % (A) 18 %; MCH 31.2 pg (25.0-35.0); MCHC 32.4 g/dL (31.0-37.0); MCV 96.2 fL (80.0-100.0); Mean Platelet Volume 6.7; Monocytes # (A) 0.5 k/uL (0-1.0); Monocytes % (A) 7 %; Neutrophils # (A) 4.8 k/uL (1.3-7.7); Neutrophils % (A) 69 %; Platelet Count 268 k/uL (150-450); RBC 3.54 m/uL (4.30-5.90)
[2018-08-03 04:41] LABS: Cholesterol 151 mg/dL (<200); HDL Cholesterol 106 mg/dL (40-60); LDL Cholesterol,Calculated 37 mg/dL (0-99); Triglycerides 42 mg/dL (<150)
[2018-08-03 04:42] LABS: Calcium 9.1 mg/dL (8.4-10.2)
[2018-08-03 05:10] LABS: Creatine Kinase MB 1.1 ng/mL (0.0-2.4); Troponin I 0.031 ng/mL (0.000-0.034)
[2018-08-03] MEDS: NITROGLYCERIN OINT 1 INCH/GM PACKET TOPICAL SCH ×2 (05:37→12:00)
[2018-08-03 05:51] LABS: Appearance,Urine Cloudy (Clear); Bilirubin,Urine Negative (Negative); Blood,Urine Negative (Negative); Color,Urine Yellow; Glucose,Urine (UA) Negative (Negative); Ketones,Urine Negative (Negative); Leukocyte Esterase,Urine Negative (Negative); Mucus,Urine Rare /hpf; Nitrite,Urine Negative (Negative); PH, Urine 6.5 (5.0-8.0); Protein,Urine Negative (Negative); RBC,Urine 1 /hpf (0-5); Specific Gravity,Urine 1.011 (1.001-1.035); Urobilinogen,Urine <2.0 mg/dL (<2.0); WBC,Urine <1 /hpf (0-5)
[2018-08-03] MEDS: PANTOPRAZOLE 40 MG TABLET PO SCH (06:23)
[2018-08-03] MEDS: SYMBICORT 160-4.5 MCG INHALER INHALATION SCH ×2 (08:26→21:49)
--- NOTE | 2018-08-03 09:25 | HP ---
HISTORY AND PHYSICAL DATE OF SERVICE: 08/02/2018 CHIEF COMPLAINT: Chest pain, mostly right-sided. HISTORY OF PRESENT ILLNESS: This 83-year-old gentleman with a past medical history of multiple medical problems including hypertension, history of DJD, history OF pneumonia, history of gastrointestinal bleed, history of gastritis, history of hernia repair, being followed by Dr. Leija in the outpatient setting, apparently was chopping wood and the patient apparently had a back pain for the last several weeks. The patient has been seen by Dr. Up. The details are not available at this time. The patient reports that the back pain is situated in the mid back. The patient was recently admitted in mid- April to [facility] with acute ileus and multiple medical issues. The patient improved significantly. The patient also has a left lung nodule, being followed by Dr. Morales. The patient also complained of generalized tiredness and weakness. The patient is also complaining of weight loss of at least 20 pounds unintentional. The patient is complaining of pain, especially in the right side, sharp type of pain. The patient came to [facility] and was admitted for further evaluation and treatment. Creatinine was found to be 1.73. Troponin 0.042. The the patient also had a V/Q scan which showed matching small defects reported as low probability. The patient also had chest x-ray which was reviewed personally by me, showed advanced COPD and irregular patchy densities, possible parenchymal scarring. There is no history of fevers, rigors, no headache, loss of consciousness, seizures. PAST MEDICAL HISTORY: History of hypertension, history of DJD, history pneumonia, adenoidectomy. MEDICATIONS: 1. [place] 5 mg every 6 hours p.r.n. 2. Norvasc 5 mg p.o. daily. 3. Multivitamins. 4. Vitamin D3, 400 units daily. 5. Symbicort 4.5 two puffs b.i.d. 6. Vitamin C 1000 mg b.i.d. ALLERGIES: PENICILLIN. FAMILY HISTORY: History of myocardial infarction in the family. SOCIAL HISTORY: No history of smoking, no alcohol. REVIEW OF SYSTEMS: ENT: No diminished vision or hearing. CARDIOVASCULAR: As mentioned. GI: No nausea. : No dysuria. NERVOUS SYSTEM: No numbness or weakness. ALLERGY/IMMUNOLOGY: No asthma or hayfever. MUSCULOSKELETAL: As mentioned. HEMATOLOGY: As mentioned. ENDOCRINE: No history of diabetes or hypothyroidism. CONSTITUTIONAL: As mentioned. DERMATOLOGY: Negative. RHEUMATOLOGY: As mentioned. PSYCHIATRY: As mentioned earlier. CONSTITUTIONAL: As mentioned earlier. PHYSICAL EXAMINATION: Alert, oriented x3. Pulse is 93, blood pressure 120/85, respirations 17, temperature 97.6, pulse ox 100 percent on 2 L. BMI 15.9. HEENT: Oral mucosa moist. NECK: No jugular venous distention. No lymph node enlargement. CARDIOVASCULAR: S1 and S2 muffled. RESPIRATORY: Breath sounds diminished at the bases. Few scattered rhonchi and crackles. ABDOMEN: Soft, scaphoid. Nontender, no masses palpable. LEGS: No edema. No swelling. NERVOUS SYSTEM: Higher functions as mentioned earlier. Moves all four limbs. SKIN: No rash, no bleeding. JOINTS: No active deformity. LABS: WBC 8.2, hemoglobin 12.5. D-dimer is 1.04. Sodium 132, and creatinine is 1.70. Troponin is noted. EKG done on admission showed normal sinus rhythm and no acute abnormality. ASSESSMENT: 1. Right-sided chest pain, possibly musculoskeletal. 2. Troponin 0.042, rule out coronary artery disease. 3. Elevated creatinine 1.70, acute renal failure, possibly acute tubular necrosis and prerenal renal failure. 4. Hyponatremia. 5. Anemia, normocytic anemia of chronic disease. 6. Severe wasting and malnutrition of undetermined etiology. BMI of 15.9. 7. Chronic obstructive pulmonary disease. 8. Degenerative joint disease. 9. Hypertension. 10.History of pneumonia. 11.History of lower gastrointestinal bleed. 12.History of peptic ulcer. 13.History of gastritis. 14.History of cataracts. 15.History of adenoidectomy. 16.Gait dysfunction. RECOMMENDATIONS: In this 83-year-old gentleman who presented with multiple complex medical issues, we will monitor the patient closely, continue the current management and symptomatic treatment. We will obtain serial troponins and closely monitor. Cardiology consult to rule out possible coronary artery disease. I would also recommend a CT scan of the chest to rule out any other abnormality. Otherwise PT, OT evaluation, possible ECF rehab. Overall prognosis extremely guarded because of the multiple complex medical issues. Dietary evaluation also will be sought. See orders and medical reconciliation done. MMODL / IJN: [id number] /
[2018-08-03] MEDS: IOPAMIDOL-300 CONTRAST 30 ML VIAL (ORAL USE) PO PRN ×2 (09:36→10:24)
[2018-08-03] MEDS: ASPIRIN 325 MG TAB PO SCH (09:36)
[2018-08-03] MEDS: amLODIPine 5 MG TAB PO SCH (09:36)
--- NOTE | 2018-08-03 11:04 | P.CRDCN ---
History of Present Illness Consult date: 08/03/18 Requesting physician: Hunter E Lilian Consult reason: chest pain Chief complaint: Chest pain History of present illness: This is an 83-year-old gentleman with known history of hypertension, prior GI bleed, who presents to the hospital with symptoms of chest pain that starts in the right shoulder and axilla area and radiates down past his ribs. He states that the pain comes and goes, he takes a deep breath the pain at times worsens. He also states if he tries to 10 day that the symptoms improved. He denies any prior history of coronary artery disease. He also states that he's been weak recently and has lost approximately 20 pounds in weight. Chest x-ray showed advanced COPD with some irregular patchy densities in the right upper lobe possible infiltrate. Nodularity noticed at the left lung base recommendation of a contrast-enhanced CT has been made. VQ scan showed matched small defects related to severe airway disease. Probability of pulmonary embolism. EKG shows a normal sinus rhythm with no acute changes. Blood pressure 130/70 with a heart rate in the 70s, 99% on room air. White blood cell count 7.0, hemoglobin 11, platelet count 268. D-dimer 1.04. Sodium 132, potassium 4.0, BUN 34, creatinine 1.5. On admission the BUN was 34 and creatinine was 1.7. Troponins 0.042, 0.026, 0.031. At the time of my examination this morning, patient denies any chest discomfort and overall his breathing is stable. Past Medical History Past Medical History: Eye Disorder, Hypertension, Osteoarthritis (OA), Pneumonia Additional Past Medical History / Comment(s): Lower GI bleed, peptic ulcer, gastritis, normocytic anemia, past pneumonia and pt states since then he has had "spots" on his lungs, CKD stage III, L eye small cataract. History of Any Multi-Drug Resistant Organisms: None Reported Past Surgical History: Adenoidectomy, Hernia Repair, Tonsillectomy Additional Past Surgical History / Comment(s): colonoscopies/egds, lt inguinal hernia Past Anesthesia/Blood Transfusion Reactions: No Reported Reaction Additional Past Anesthesia/Blood Transfusion Reaction / Comment(s): Pt states he has received blood in past without reaction. Past Psychological History: No Psychological Hx Reported Additional Psychological History / Comment(s): Pt states he and his spouse moved into [place] one week ago. He uses no assistive device. He drives. Pt has a nebulizer. Smoking Status: Never smoker Past Alcohol Use History: None Reported Past Drug Use History: None Reported - Past Family History Father Family Medical History: Myocardial Infarction (MT) Additional Family Medical History / Comment(s): Father had heart disease. He lived till age 87 Mother Family Medical History: Myocardial Infarction (MT) Additional Family Medical History / Comment(s): Mother had heart disease. She lived till age 95 Medications and Allergies Home Medications Medication Instructions Recorded Confirmed Type Cholecalciferol [Vitamin D3] 400 unit PO DAILY 12/10/14 08/02/18 History Multivit-Min/FA/Lycopene/Lut 1 tab PO DAILY 12/10/14 08/02/18 History [Centrum Silver Tablet] amLODIPine BESYLATE [Norvasc] 5 mg PO DAILY 12/10/14 08/02/18 History Budesonide-Formot 160-4.5 Mcg 2 puff INHALATION RT-BID #1 puff 12/14/14 Rx [Symbicort 160-4.5 Mcg Inhaler] Ascorbic Acid [Vitamin C] 1,000 mg PO DAILY 05/12/18 08/02/18 History HYDROcodone/APAP 5-325MG [[place] 1 tab PO Q6HR PRN 08/02/18 08/02/18 History 5-325] Allergies Allergy/AdvReac Type Severity Reaction Status Date / Time Penicillins Allergy Rash/Hives Verified 08/02/18 15:49 Physical Exam Vitals: Vital Signs Temp Pulse Pulse Resp BP BP Pulse Ox 08/03/18 08:00 97 F L 74 16 130/71 99 08/03/18 03:22 97.4 F L 80 17 123/65 100 08/02/18 23:33 83 17 108/67 97 08/02/18 20:00 97.6 F 93 17 122/85 100 08/02/18 18:50 97.6 F 83 13 164/94 100 08/02/18 18:00 83 13 164/94 08/02/18 17:55 92 18 08/02/18 14:34 97.6 F 91 18 127/87 100 Intake and Output 08/02/18 08/03/18 08/03/18 22:59 06:59 14:59 Intake Total 47.25 Output Total 100 425 Balance -100 -377.75 Intake: Intake, IV Titration 47.25 Amount Heparin Sod,Pork in 0.45% 47.25 NaCl 25,000 unit In 0.45 % NaCl 1 250ml.bag @ 12 UNITS/KG/HR 5.98 mls/hr IV .Q24H [facility] Rx#: [id number] Output: Urine 100 425 Other: # Voids 1 Weight 44.8 kg 44.8 kg PHYSICAL EXAMINATION: GENERAL: 83-year-old gentleman in no acute distress at the time of my examination, appears frail HEENT: Head is atraumatic, normocephalic. Pupils equal, round. Sclera anicteric. Conjunctiva are clear. Mucous membranes of the mouth are moist. Neck is supple. There is no elevated jugular venous pressure. No carotid bruit is heard. HEART EXAMINATION: Heart S1, S2 normal. No murmur or gallop heard. CHEST EXAMINATION: Lungs reveal a few scattered coarse rhonchi with diminished air entry bilaterally. ABDOMEN: Soft, nontender. Bowel sounds are heard. No organomegaly noted. EXTREMITIES: 2+ peripheral pulses with no evidence of peripheral edema and no calf tenderness noted. NEUROLOGIC patient is awake, alert and oriented 3 . . Results 08/03/18 03:46 08/03/18 03:46 Cardiac Enzymes 08/02/18 08/02/18 08/02/18 Range/Units 15:16 15:16 21:32 AST 38 (17-59) U/L CK-MB (CK-2) 2.2 1.6 (0.0-2.4) ng/mL Troponin I 0.042 H* 0.026 (0.000-0.034) ng/mL 08/03/18 Range/Units 03:46 AST (17-59) U/L CK-MB (CK-2) 1.1 (0.0-2.4) ng/mL Troponin I 0.031 (0.000-0.034) ng/mL Coagulation 08/02/18 08/03/18 Range/Units 15:16 03:46 PT 10.4 (9.0-12.0) sec APTT 25.2 54.5 H (22.0-30.0) sec Lipids 08/03/18 Range/Units 03:46 Triglycerides 42 (<150) mg/dL Cholesterol 151 (<200) mg/dL HDL Cholesterol 106 H (40-60) mg/dL CBC 08/02/18 08/03/18 Range/Units 15:16 03:46 WBC 8.4 7.0 (3.8-10.6) k/uL RBC 4.04 L 3.54 L (4.30-5.90) m/uL Hgb 12.5 L 11.0 L (13.0-17.5) gm/dL Hct 38.5 L 34.0 L (39.0-53.0) % Plt Count 301 268 (150-450) k/uL Comprehensive Metabolic Panel 08/02/18 08/03/18 Range/Units 15:16 03:46 Sodium 132 L 132 L (137-145) mmol/L Potassium 4.8 4.0 (3.5-5.1) mmol/L Chloride 91 L 94 L (98-107) mmol/L Carbon Dioxide 31 H 32 H (22-30) mmol/L BUN 34 H 34 H (9-20) mg/dL Creatinine 1.70 H 1.50 H (0.66-1.25) mg/dL Glucose 121 H 95 (74-99) mg/dL Calcium 9.7 9.1 (8.4-10.2) mg/dL AST 38 (17-59) U/L ALT 25 (21-72) U/L Alkaline Phosphatase 47 (38-126) U/L Total Protein 6.7 (6.3-8.2) g/dL Albumin 4.2 (3.5-5.0) g/dL Current Medications Generic Name Dose Route Start Last Admin Trade Name Freq PRN Reason Stop Dose Admin Acetaminophen 500 mg 08/02/18 22:23 Tylenol Tab PO Q6HR PRN Fever and/ or Pain Hydrocodone Bitart/Acetaminophen 1 each 08/02/18 17:17 08/03/18 03:00 [place] 5-325 PO 1 each Q6HR PRN Administration Pain Alprazolam 0.25 mg 08/02/18 22:23 Xanax PO TID PRN Anxiety Amlodipine Besylate 5 mg 08/03/18 09:00 08/03/18 09:36 Norvasc PO 5 mg DAILY [facility] Administration Ascorbic Acid 1,000 mg 08/03/18 12:00 Vitamin C PO DAILY@1200 [facility] Aspirin 325 mg 08/03/18 09:00 08/03/18 09:36 Aspirin PO 325 mg DAILY [facility] Administration Budesonide/Formoterol Fumarate 2 puff 08/02/18 20:00 08/03/18 08:26 Symbicort 160-4.5 Mcg Inhaler INHALATION 2 puff RT-BID [facility] Administration Cholecalciferol 400 unit 08/03/18 12:00 Vitamin D3 PO DAILY@1200 [facility] Hydromorphone HCl 0.5 mg 08/02/18 22:05 08/02/18 22:24 Dilaudid IVP 0.5 mg Q6HR PRN Administration Pain Heparin Sodium/Sodium Chloride 250 mls @ 5.98 mls/hr 08/02/18 17:15 08/03/18 05:25 25,000 unit/ Sodium Chloride IV 10.82 units/kg/hr .Q24H [facility] 5.4 mls/hr Titration Protocol 12 UNITS/KG/HR Sodium Chloride 1,000 mls @ 20 mls/hr 08/02/18 17:15 08/02/18 20:41 Saline 0.9% IV 20 mls/hr .Q24H [facility] Administration Melatonin 5 mg 08/02/18 21:00 08/02/18 22:31 Melatonin PO 5 mg HS [facility] Administration Multivitamins 1 each 08/03/18 12:00 Theragran PO DAILY@1200 [facility] Nitroglycerin 1 inch 08/02/18 18:00 08/03/18 05:37 Nitro-Bid Oint TOPICAL Not Given Q6HR [facility] Nitroglycerin 0.4 mg 08/02/18 17:13 Nitrostat SUBLINGUAL Q5M PRN Chest Pain Pantoprazole Sodium 40 mg 08/03/18 07:30 08/03/18 06:23 Protonix PO Not Given AC-BRKFST [facility] Temazepam 15 mg 08/02/18 22:23 Restoril PO HS PRN Insomnia Intake and Output 08/02/18 08/03/18 08/03/18 22:59 06:59 14:59 Intake Total 47.25 Output Total 100 425 Balance -100 -377.75 Intake: Intake, IV Titration 47.25 Amount Heparin Sod,Pork in 0.45% 47.25 NaCl 25,000 unit In 0.45 % NaCl 1 250ml.bag @ 12 UNITS/KG/HR 5.98 mls/hr IV .Q24H [facility] Rx#: [id number] Output: Urine 100 425 Other: # Voids 1 Weight 44.8 kg 44.8 kg 08/03/18 03:46 08/03/18 03:46 EKG Interpretations (text) EKG shows normal sinus rhythm with no acute changes. Assessment and Plan Plan: Assessment and plan #1 right sided chest pain, atypical for acute coronary syndrome, appears musculoskeletal in nature. EKG shows normal sinus rhythm with no acute changes. Troponins 0.04, 0.02, 0.03. No significant rise and fall pattern, likely secondary to abnormal renal function. D-dimer elevated, VQ scan low probability for PE. #2 mild renal insufficiency #3 hyponatremia #4 anemia #5 COPD #6 significant weight loss #7 history of lower GI bleed #8 nodular the noted on chest x-ray, CT of the chest recommended. Plan We will discontinue the IV heparin from our perspective. Discontinue Nitropaste. Decrease aspirin to 81 mg daily. Obtain echocardiogram with Doppler study. DNP note has been reviewed, I agree with a documented findings and plan of care. Patient was seen and examined.
--- NOTE | 2018-08-03 11:51 | CT ---
EXAMINATION TYPE: CT ChestAbdPelvis wo con DATE OF EXAM: 08/03/2018 COMPARISON: Previous study dated 06/11/2018. HISTORY: Chest pain CT DLP: 334 mGycm Automated exposure control for dose reduction was used. TECHNIQUE: Helical acquisition through the abdomen and pelvis was obtained with oral but without intr avenous contrast. The data was formatted in the axial, coronal and sagittal projections. FINDINGS: There is evidence of chronic interstitial lung disease with interlobular septal thickening. The patient's left lower lobe pulmonary nodule which previously measured 7.8 x 5.1 mm today measures 9.4 x 8 mm. There is a calcified granuloma in the left midlung. This is unchanged from previous. There is no significant axillary, mediastinal or hilar adenopathy. There is no pleural or pericardial fluid. The aorta is normal and caliber. There is moderate atheromatous calcification of the aorta. Within the abdomen, there is a scant amount of ascites surrounding the liver. The liver is normal in size. There are coarse calcifications in the dome of the liver, unchanged from previous. The spleen a nd gallbladder are unremarkable. Both adrenal glands appear unremarkable. There is no evidence of hydronephrosis or nephrolithiasis. Unusual possibility of retroperitoneal fat and lack of contrast the pancreas is not clearly distingui shed. There is fullness in the para-aortic region. I cannot exclude adenopathy in this region. There is no iliac or inguinal adenopathy. The bladder is unremarkable. The appendix is not visualized with certainty. Small bowel caliber is normal. No free air is seen. There is degenerative disc disease and mild hypertrophic spondylosis within the spine. IMPRESSION: 1. MARKEDLY SUBOPTIMAL EXAMINATION DUE TO THE LACK OF RETROPERITONEAL FAT AND INTRAVENOUS CONTRAST. 2. INTERSTITIAL LUNG DISEASE. 3. SLIGHT ENLARGEMENT IN THE PATIENT'S LEFT SIDED PULMONARY NODULE. 4. EVIDENCE OF OLD GRANULOMATOUS DISEASE. 5. MILD TO MODERATE ASCITES. 6. STABLE CALCIFICATIONS WITHIN THE LIVER. 7. QUESTIONABLE PARA-AORTIC ADENOPATHY. 8. DEGENERATIVE CHANGES WITHIN THE SPINE.
[2018-08-03] MEDS: MULTIVITAMINS, THERA 1 EACH TAB PO SCH (12:53)
[2018-08-03] MEDS: ASCORBIC ACID 500 MG TAB PO SCH (12:53)
[2018-08-03] MEDS: CHOLECALCIFEROL 400 UNIT TAB PO SCH (12:53)
--- NOTE | 2018-08-03 15:26 | P.CNPUL ---
History of Present Illness Consult date: 08/03/18 Reason for consult: chest pain, other (Pulmonary fibrosis) Chief complaint: Right-sided chest pain. History of present illness: This is an 83-year-old white male with history of multiple medical problems including hypertension, degenerative joint disease, peptic ulcer disease, nonspecific interstitial lung disease/pulmonary fibrosis, history of pulmonary nodules, patient has been seen by Dr. Pacheco on consultation and he usually sees him on outpatient basis for follow-up on pulmonary nodules. And for follow -up on interstitial lung disease. Patient was brought in this time yesterday with mostly few weeks history of right-sided chest pain, pain is also radiating to the right shoulder, right axillary area, and seems to be mostly between the ribs. Patient describes the pain as mostly related to certain activities and certain movements, and clearly not pleuritic in nature. Workup in the ER included a chest x-ray which showed advanced COPD, and some irregular patchy density with parenchymal scarring which is basically chronic, there is also some left lower lobe nodularity, CT of the chest abdomen and pelvis were also done, clearly demonstrated interstitial lung disease, there was also slight enlargement in the left sided pulmonary nodule which was seen previously on previous CT of the chest, moderate ascites was noted. However as far as the nodule is concerned, it has been described to slightly increase from 7.8 mm up to 9.48 mm this is a noncalcified nodule, at one point it was even described to be 12 mm in nodule, and shown decrease in size based on a follow-up CT of the chest dated 06/11/2018. It was previously noted on a CT of the chest and abdomen dated few years back. Obviously the nodule has been present for quite some time, plus the fact that the patient is being monitored on a regular basis by Dr. Pacheco for his nodule. At any rate patient was admitted with mostly chest pain, his VQ scan is low probability for pulmonary embolism. D-dimer was elevated, but this is nonspecific. Not to mention the clinical history does not point to pulmonary embolism. Review of Systems 14 point review of systems were obtained, please refer to pertinent positives in HPI, otherwise remaining systems are negative. Past Medical History Past Medical History: Eye Disorder, Hypertension, Osteoarthritis (OA), Pneumonia Additional Past Medical History / Comment(s): Lower GI bleed, peptic ulcer, gastritis, normocytic anemia, past pneumonia and pt states since then he has had "spots" on his lungs, CKD stage III, L eye small cataract. History of Any Multi-Drug Resistant Organisms: None Reported Past Surgical History: Adenoidectomy, Hernia Repair, Tonsillectomy Additional Past Surgical History / Comment(s): colonoscopies/egds, lt inguinal hernia Past Anesthesia/Blood Transfusion Reactions: No Reported Reaction Additional Past Anesthesia/Blood Transfusion Reaction / Comment(s): Pt states he has received blood in past without reaction. Past Psychological History: No Psychological Hx Reported Additional Psychological History / Comment(s): Pt states he and his spouse moved into [facility] one week ago. He uses no assistive device. He drives. Pt has a nebulizer. Smoking Status: Never smoker Past Alcohol Use History: None Reported Past Drug Use History: None Reported - Past Family History Father Family Medical History: Myocardial Infarction ([place]) Additional Family Medical History / Comment(s): Father had heart disease. He lived till age 87 Mother Family Medical History: Myocardial Infarction ([place]) Additional Family Medical History / Comment(s): Mother had heart disease. She lived till age 95 Medications and Allergies Home Medications Medication Instructions Recorded Confirmed Type Cholecalciferol [Vitamin D3] 400 unit PO DAILY 12/10/14 08/02/18 History Multivit-Min/FA/Lycopene/Lut 1 tab PO DAILY 12/10/14 08/02/18 History [Centrum Silver Tablet] amLODIPine BESYLATE [Norvasc] 5 mg PO DAILY 12/10/14 08/02/18 History Budesonide-Formot 160-4.5 Mcg 2 puff INHALATION RT-BID #1 puff 12/14/14 Rx [Symbicort 160-4.5 Mcg Inhaler] Ascorbic Acid [Vitamin C] 1,000 mg PO DAILY 05/12/18 08/02/18 History HYDROcodone/APAP 5-325MG [[place] 1 tab PO Q6HR PRN 08/02/18 08/02/18 History 5-325] Allergies Allergy/AdvReac Type Severity Reaction Status Date / Time Penicillins Allergy Rash/Hives Verified 08/02/18 15:49 Physical Exam Vitals: Vital Signs Temp Pulse Pulse Resp BP BP Pulse Ox 08/03/18 12:00 96.8 F L 77 16 141/80 100 08/03/18 08:00 97 F L 74 16 130/71 99 08/03/18 03:22 97.4 F L 80 17 123/65 100 08/02/18 23:33 83 17 108/67 97 08/02/18 20:00 97.6 F 93 17 122/85 100 08/02/18 18:50 97.6 F 83 13 164/94 100 08/02/18 18:00 83 13 164/94 08/02/18 17:55 92 18 Intake and Output 08/03/18 08/03/18 08/03/18 06:59 14:59 22:59 Intake Total 47.25 240 Output Total 425 600 Balance -377.75 -360 Intake: Intake, IV Titration 47.25 Amount Heparin Sod,Pork in 0.45% 47.25 NaCl 25,000 unit In 0.45 % NaCl 1 250ml.bag @ 12 UNITS/KG/HR 5.98 mls/hr IV .Q24H [facility] Rx#: [id number] Oral 240 Output: Urine 425 600 Other: Weight 44.8 kg Physical Exam: Revealed an 83-year-old white male in no distress. Looks frail, and chronically ill. Head: Atraumatic normocephalic. Lymphatics: No lymphadenopathy. HEENT:[Neck is supple.] [No neck masses.] [No thyromegaly.] [No JVD.] Chest: [Coarse rhonchi noted bilaterally, diminished at the bases. No wheezing. ] Cardiac Exam: [Normal S1 and S2, no S3 gallop, no murmur.] Abdomen: [Soft, nontender, no megaly, no rebound, no guarding, normal bowel sounds.] Extremities: [No clubbing, no edema, no cyanosis.] Neurological Exam: [No focal neurologic deficit. Psychiatric: Normal mood, affect and mental status examination. Skin: No rashes.] Results - Laboratory Findings CBC and BMP: 08/03/18 03:46 08/03/18 03:46 PT/INR, D-dimer PT 10.4 sec (9.0-12.0) 08/02/18 15:16 INR 1.0 (<1.2) 08/02/18 15:16 D-Dimer 1.04 mg/L FEU (<0.60) H 08/02/18 15:16 Abnormal lab findings: Abnormal Labs 08/02/18 08/02/18 08/02/18 15:16 15:16 15:16 RBC 4.04 L Hgb 12.5 L Hct 38.5 L Lymphocytes # 0.9 L APTT D-Dimer Sodium 132 L Chloride 91 L Carbon Dioxide 31 H BUN 34 H Creatinine 1.70 H Glucose 121 H Total Creatine Kinase Troponin I 0.042 H* HDL Cholesterol Amylase 118 H Urine Mucus 08/02/18 08/03/18 08/03/18 15:16 03:46 03:46 RBC Hgb Hct Lymphocytes # APTT D-Dimer 1.04 H Sodium Chloride Carbon Dioxide BUN Creatinine Glucose Total Creatine Kinase 44 L Troponin I HDL Cholesterol 106 H Amylase Urine Mucus 08/03/18 08/03/18 08/03/18 03:46 03:46 03:46 RBC 3.54 L Hgb 11.0 L Hct 34.0 L Lymphocytes # APTT 54.5 H D-Dimer Sodium 132 L Chloride 94 L Carbon Dioxide 32 H BUN 34 H Creatinine 1.50 H Glucose Total Creatine Kinase Troponin I HDL Cholesterol Amylase Urine Mucus 08/03/18 05:36 RBC Hgb Hct Lymphocytes # APTT D-Dimer Sodium Chloride Carbon Dioxide BUN Creatinine Glucose Total Creatine Kinase Troponin I HDL Cholesterol Amylase Urine Mucus Rare H - Diagnostic Findings Chest x-ray: image reviewed (As noted in HPI.) Additional studies: VQ scan was reviewed as noted in HPI. Assessment and Plan Assessment: Impression: 1 right sided atypical chest pain, clearly not related to thromboembolic disease , and does not seem to be cardiac in nature. Hence heparin could be discontinued. 2 low probability VQ scan for pulmonary embolism. 3 left lower lobe lung nodule being monitored by Dr. Pacheco on outpatient basis, very remote possibility of malignancy based on previous studies on this nodule. 4 history of lower GI bleeding and chronic anemia 5 suspect interstitial lung disease and underlying COPD, being followed by Dr. Pacheco on outpatient basis. [address] of the abdomen and pelvis, showing ascites, may require further diagnostic workup as per the admitting physician. Recommendation: Discontinue heparin, continue bronchodilators, continue present treatment plan, once the patient is discharged, suggest making an appointment for him to see Dr. Pacheco. We'll continue to follow. Time with Patient: Greater than 30
--- NOTE | 2018-08-03 16:40 | P.HPIM ---
History of Present Illness This is a pleasant 83 years old male with past medical history of hypertension, GI bleed, peptic ulcer disease, chronic kidney disease stage III. He presents because of chest pain, central nonradiating for a while but patient could not specify for how long says that is sharp comes for a few minutes and then disappears. says that he wears a brace for his back and it could be causing its On admission his hemodynamically stable, saturating 100% on room air. CBC was unremarkable. Sodium 132, creatinine 1.7 comin down to 1.5 baseline is 0.9-1.0 bur enzymes were unremarkable. Urine analysis is unremarkable for infection as well. Chest x-ray showing advanced COPD. CT of the chest, abdomen and pelvis without IV contrast showing: Interstitial lung disease with left lower lobe pulmonary nodule increasing in size from 7.8 up to 9.47 mm, no mediastinal or hilar lymphadenopathy. Elevated d-dimer at 1.04, VQ scan showing low probability for pulmonary embolism. Patient has been evaluated by cardiology for chest pain and felt it was atypical for acute coronary syndrome. And appears more with muscular skeletal in nature. Pulmonary evaluated the patient for pulmonary nodule with remote possibility of malignancy based on previous studies on this nodule done by Dr. Covarrubias and his sales operations analyst. Both cardiology and pulmonary team, and internal. Heparin drip. Review of Systems CONSTITUTIONAL: No fever, no malaise, no fatigue. HEENT: No recent visual problems or hearing problems. Denied any sore throat. CARDIOVASCULAR: No orthopnea, PND, no palpitations, no syncope. PULMONARY: No shortness of breath, no cough, no hemoptysis. GASTROINTESTINAL: No diarrhea, no nausea, no vomiting, no abdominal pain. Normoactive bowel sounds. NEUROLOGICAL: No headaches, no weakness, no numbness. HEMATOLOGICAL: Denies any bleeding or petechiae. GENITOURINARY: Denies any burning micturition, frequency, or urgency. MUSCULOSKELETAL/RHEUMATOLOGICAL: Denies any joint pain, swelling, or any muscle pain. ENDOCRINE: Denies any polyuria or polydipsia. Past Medical History Past Medical History: Eye Disorder, Hypertension, Osteoarthritis (OA), Pneumonia Additional Past Medical History / Comment(s): Lower GI bleed, peptic ulcer, gastritis, normocytic anemia, past pneumonia and pt states since then he has had "spots" on his lungs, CKD stage III, L eye small cataract. History of Any Multi-Drug Resistant Organisms: None Reported Past Surgical History: Adenoidectomy, Hernia Repair, Tonsillectomy Additional Past Surgical History / Comment(s): colonoscopies/egds, lt inguinal hernia Past Anesthesia/Blood Transfusion Reactions: No Reported Reaction Additional Past Anesthesia/Blood Transfusion Reaction / Comment(s): Pt states he has received blood in past without reaction. Past Psychological History: No Psychological Hx Reported Additional Psychological History / Comment(s): Pt states he and his spouse moved into [employer] one week ago. He uses no assistive device. He drives. Pt has a nebulizer. Smoking Status: Never smoker Past Alcohol Use History: None Reported Past Drug Use History: None Reported - Past Family History Father Family Medical History: Myocardial Infarction ([place]) Additional Family Medical History / Comment(s): Father had heart disease. He lived till age 87 Mother Family Medical History: Myocardial Infarction ([place]) Additional Family Medical History / Comment(s): Mother had heart disease. She lived till age 95 Medications and Allergies Home Medications Medication Instructions Recorded Confirmed Type Cholecalciferol [Vitamin D3] 400 unit PO DAILY 12/10/14 08/02/18 History Multivit-Min/FA/Lycopene/Lut 1 tab PO DAILY 12/10/14 08/02/18 History [Centrum Silver Tablet] amLODIPine BESYLATE [Norvasc] 5 mg PO DAILY 12/10/14 08/02/18 History Budesonide-Formot 160-4.5 Mcg 2 puff INHALATION RT-BID #1 puff 12/14/14 Rx [Symbicort 160-4.5 Mcg Inhaler] Ascorbic Acid [Vitamin C] 1,000 mg PO DAILY 05/12/18 08/02/18 History HYDROcodone/APAP 5-325MG [[place] 1 tab PO Q6HR PRN 08/02/18 08/02/18 History 5-325] Allergies Allergy/AdvReac Type Severity Reaction Status Date / Time Penicillins Allergy Rash/Hives Verified 08/02/18 15:49 Physical Exam Vitals: Vital Signs Temp Pulse Pulse Resp BP BP Pulse Ox 08/03/18 12:00 96.8 F L 77 16 141/80 100 08/03/18 08:00 97 F L 74 16 130/71 99 08/03/18 03:22 97.4 F L 80 17 123/65 100 08/02/18 23:33 83 17 108/67 97 08/02/18 20:00 97.6 F 93 17 122/85 100 08/02/18 18:50 97.6 F 83 13 164/94 100 08/02/18 18:00 83 13 164/94 08/02/18 17:55 92 18 Intake and Output 08/03/18 08/03/18 08/03/18 06:59 14:59 22:59 Intake Total 47.25 240 Output Total 425 600 Balance -377.75 -360 Intake: Intake, IV Titration 47.25 Amount Heparin Sod,Pork in 0.45% 47.25 NaCl 25,000 unit In 0.45 % NaCl 1 250ml.bag @ 12 UNITS/KG/HR 5.98 mls/hr IV .Q24H [facility] Rx#: [id number] Oral 240 Output: Urine 425 600 Other: Weight 44.8 kg GENERAL: The patient is alert and oriented x3, not in any acute distress. Well developed, well nourished. HEENT: Pupils are round and equally reacting to light. EOMI. No scleral icterus. No conjunctival pallor. Normocephalic, atraumatic. No pharyngeal erythema. No thyromegaly. CARDIOVASCULAR: S1 and S2 present. No murmurs, rubs, or gallops. PULMONARY: Chest is clear to auscultation, no wheezing or crackles. ABDOMEN: Soft, nontender, nondistended, normoactive bowel sounds. No palpable organomegaly. MUSCULOSKELETAL: No joint swelling or deformity. EXTREMITIES: No cyanosis, clubbing, or pedal edema. NEUROLOGICAL: Gross neurological examination did not reveal any focal deficits. SKIN: No rashes. Results CBC & Chem 7: 08/03/18 03:46 08/03/18 03:46 Labs: Abnormal Lab Results - Last 24 Hours (Table) 08/03/18 08/03/18 08/03/18 Range/Units 03:46 03:46 03:46 RBC (4.30-5.90) m/uL Hgb (13.0-17.5) gm/dL Hct (39.0-53.0) % APTT 54.5 H (22.0-30.0) sec Sodium (137-145) mmol/L Chloride (98-107) mmol/L Carbon Dioxide (22-30) mmol/L BUN (9-20) mg/dL Creatinine (0.66-1.25) mg/dL Total Creatine Kinase 44 L (55-170) U/L HDL Cholesterol 106 H (40-60) mg/dL Urine Mucus (None) /hpf 08/03/18 08/03/18 08/03/18 Range/Units 03:46 03:46 05:36 RBC 3.54 L (4.30-5.90) m/uL Hgb 11.0 L (13.0-17.5) gm/dL Hct 34.0 L (39.0-53.0) % APTT (22.0-30.0) sec Sodium 132 L (137-145) mmol/L Chloride 94 L (98-107) mmol/L Carbon Dioxide 32 H (22-30) mmol/L BUN 34 H (9-20) mg/dL Creatinine 1.50 H (0.66-1.25) mg/dL Total Creatine Kinase (55-170) U/L HDL Cholesterol (40-60) mg/dL Urine Mucus Rare H (None) /hpf Thrombosis Risk Factor Assmnt - Choose All That Apply Any of the Below Risk Factors Present?: No Other Risk Factors: Yes Each Risk Factor Represents 3 Points: Age 75 years or older Other congenital or acquired thrombophilia - If yes, enter type in comment: No Thrombosis Risk Factor Assessment Total Risk Factor Score: 3 Thrombosis Risk Factor Assessment Level: Moderate Risk Assessment and Plan Assessment: Chest pain, mostly musculoskeletal. Cardiac causes was ruled out by cardiology team Pulmonary nodule, remote possibility of being malignancy and recommended outpatient follow-up with Dr. Covarrubias and upon discharge Interstitial lung disease History of coronary artery disease History of GI bleed, Plan: This is a pleasant 89 years old male who presents because of chest pain, mostly musculoskeletal. And lung nodule that she felt its not malignant but needs outpatient follow-up Labs and medication were reviewed.. Continue same treatment. Continue with symptomatic treatment. Resume home medication. Monitor lytes and vitals. DVT and GI prophylaxis. Further recommendations of the clinical course of the patient DVT prophylaxis: Subcutaneous heparin GI Prophylaxis: Pepcid Prognosis is guarded
[2018-08-03] MEDS: SODIUM CHLORIDE 0.9% 1,000 ML IV SCH (17:13)
[2018-08-03] MEDS: HEPARIN SODIUM,PORCINE 5,000 UNIT/ML 1 ML VIAL SQ SCH (19:53)
[2018-08-03] MEDS: MELATONIN 5 MG TABLET PO SCH (19:53)
[2018-08-03] MEDS ORDERED: FAMOTIDINE 20 MG/2 ML VIAL IV SCH (21:00)
[2018-08-04] MEDS: PANTOPRAZOLE 40 MG TABLET PO SCH (06:29)
[2018-08-04 06:58] LABS: Calcium 8.6 mg/dL (8.4-10.2); Potassium 3.8 mmol/L (3.5-5.1)
[2018-08-04 07:18] LABS: Basophils % (A) 0 %; Eosinophils # (A) 0.2 k/uL (0-0.7); Eosinophils % (A) 2 %; HGB 11.7 gm/dL (13.0-17.5); Lymphocytes # (A) 1.2 k/uL (1.0-4.8); Lymphocytes % (A) 15 %; MCH 30.3 pg (25.0-35.0); MCHC 31.7 g/dL (31.0-37.0); MCV 95.6 fL (80.0-100.0); Mean Platelet Volume 6.9; Monocytes # (A) 0.6 k/uL (0-1.0); Monocytes % (A) 8 %; Neutrophils # (A) 5.9 k/uL (1.3-7.7); Neutrophils % (A) 72 %; Platelet Count 311 k/uL (150-450); RBC 3.87 m/uL (4.30-5.90); RDW 12.8 % (11.5-15.5); WBC 8.3 k/uL (3.8-10.6)
[2018-08-04] MEDS: SYMBICORT 160-4.5 MCG INHALER INHALATION SCH (07:18)
[2018-08-04 09:16] VITALS: RESP 16; TEMP 97.4
[2018-08-04] MEDS: ASPIRIN 325 MG TAB PO SCH (09:22)
[2018-08-04] MEDS: amLODIPine 5 MG TAB PO SCH (09:22)
[2018-08-04] MEDS: HEPARIN SODIUM,PORCINE 5,000 UNIT/ML 1 ML VIAL SQ SCH (09:22)
[2018-08-04] MEDS ORDERED: SODIUM CHLORIDE 0.9% 1,000 ML IV SCH (10:45)
--- NOTE | 2018-08-04 10:45 | P.PN ---
Subjective Progress Note Date: 08/04/18 This is an 83-year-old gentleman with known history of hypertension, prior GI bleed, who presents to the hospital with symptoms of chest pain that starts in the right shoulder and axilla area and radiates down past his ribs. He states that the pain comes and goes, he takes a deep breath the pain at times worsens. He also states if he tries to 10 day that the symptoms improved. He denies any prior history of coronary artery disease. He also states that he's been weak recently and has lost approximately 20 pounds in weight. Chest x-ray showed advanced COPD with some irregular patchy densities in the right upper lobe possible infiltrate. Nodularity noticed at the left lung base recommendation of a contrast-enhanced CT has been made. VQ scan showed matched small defects related to severe airway disease. Probability of pulmonary embolism. EKG shows a normal sinus rhythm with no acute changes. Blood pressure 130/70 with a heart rate in the 70s, 99% on room air. White blood cell count 7.0, hemoglobin 11, platelet count 268. D-dimer 1.04. Sodium 132, potassium 4.0, BUN 34, creatinine 1.5. On admission the BUN was 34 and creatinine was 1.7. Troponins 0.042, 0.026, 0.031. At the time of my examination this morning, patient denies any chest discomfort and overall his breathing is stable. 08/04/2018 Patient was seen and examined this morning, sitting up in the chair at bedside. He denies any further chest discomfort. Echo remains pending. IV heparin was discontinued yesterday. Blood pressure 120/70 with a heart rate in the 80s , 100% on room air. White blood cell count 8.3, hemoglobin 11.7, platelet count 311. Sodium 1:30, potassium 3.8, BUN 27 and creatinine 1.4 today. Objective - Vital Signs Vital signs: Vital Signs Temp 97.4 F L 08/04/18 08:00 Pulse 82 08/04/18 08:00 Resp 16 08/04/18 08:00 BP 119/73 08/04/18 08:00 Pulse Ox 100 08/04/18 08:00 Intake & Output 08/03/18 08/04/18 08/04/18 18:59 06:59 18:59 Intake Total 240 200 240 Output Total 600 1350 Balance -360 -1150 240 Weight 43.5 kg Intake: Intake, IV Titration 200 Amount Sodium Chloride 0.9% 1, 200 000 ml @ 20 mls/hr IV . Q24H [facility] Rx#:[id number] Oral 240 240 Output: Urine 600 1350 Other: Voiding Method Urinal Urinal # Voids 1 - Exam Physical Exam: Revealed an 83-year-old white male in no distress. Looks frail, and chronically ill. Head: Atraumatic normocephalic. Lymphatics: No lymphadenopathy. HEENT:[Neck is supple.] [No neck masses.] [No thyromegaly.] [No JVD.] Chest: [Coarse rhonchi noted bilaterally, diminished at the bases. No wheezing. ] Cardiac Exam: [Normal S1 and S2, no S3 gallop, no murmur.] Abdomen: [Soft, nontender, no megaly, no rebound, no guarding, normal bowel sounds.] Extremities: [No clubbing, no edema, no cyanosis.] Neurological Exam: [No focal neurologic deficit. Psychiatric: Normal mood, affect and mental status examination. Skin: No rashes.] - Labs CBC & Chem 7: 08/04/18 05:57 08/04/18 05:57 Labs: Abnormal Lab Results - Last 24 Hours (Table) 08/04/18 08/04/18 Range/Units 05:57 05:57 RBC 3.87 L (4.30-5.90) m/uL Hgb 11.7 L (13.0-17.5) gm/dL Hct 37.0 L (39.0-53.0) % Sodium 130 L (137-145) mmol/L Chloride 93 L (98-107) mmol/L BUN 27 H (9-20) mg/dL Creatinine 1.47 H (0.66-1.25) mg/dL Assessment and Plan Plan: Assessment and plan #1 right sided chest pain, atypical for acute coronary syndrome, appears musculoskeletal in nature. EKG shows normal sinus rhythm with no acute changes. Troponins 0.04, 0.02, 0.03. No significant rise and fall pattern, likely secondary to abnormal renal function. D-dimer elevated, VQ scan low probability for PE. #2 mild renal insufficiency #3 hyponatremia #4 anemia #5 COPD #6 significant weight loss #7 history of lower GI bleed #8 nodular the noted on chest x-ray, CT of the chest recommended. Plan From cardiology's perspective, we'll review the patient's echocardiogram with Doppler study. If his LV function is normal we'll follow this patient with you now on an as-needed basis only, please don't hesitate to call with any questions. DNP note has been reviewed, I agree with a documented findings and plan of care. Patient was seen and examined.
[2018-08-04 11:20] VITALS: BP 147/77; PULSE 81
[2018-08-04] MEDS: MULTIVITAMINS, THERA 1 EACH TAB PO SCH (11:20)
[2018-08-04] MEDS: CHOLECALCIFEROL 400 UNIT TAB PO SCH (11:20)
[2018-08-04] MEDS: ASCORBIC ACID 500 MG TAB PO SCH (11:20)
[2018-08-04 12:08] VITALS: BMI 15.5
--- NOTE | 2018-08-04 15:23 | PN ---
PROGRESS NOTE DATE OF SERVICE: 08/04/2018 This is an 83-year-old gentleman who was seen by my partner yesterday. He came in with right-sided atypical chest pain. The patient had a low probability V/Q scan. The patient also has a left lung nodule being monitored by my partner, Dr. Pacheco. He has a history of lower gastrointestinal bleed, chronic anemia, interstitial lung disease and COPD. Again, he sees my partner Dr. Pacheco for the ILD and COPD. He also had an abnormal CT scan of the abdomen and pelvis showing ascites. Anyway, the patient is still having atypical right-sided pain. On further questioning, it appears that he has been doing some heavy lifting and moving and he may have strained a muscle or injured a bone. The patient states that the pain is still present. It seems to be reproducible. It is worse on certain body movements. He denies any shortness of breath or difficulty breathing. PHYSICAL EXAMINATION: His current vital signs are reviewed. Temperature is 97.4, heart rate 81, respiratory rate 16, blood pressure 119/73, mean 88, room air saturation is 92%. 2 L saturation 97%. Appears in no acute distress. HEENT examination is grossly unremarkable. Mucous membranes are moist. No oral lesions. Neck supple. Full range of motion. No adenopathy or thyromegaly. Neck veins are flat. Cardiovascular examination reveals regular rhythm and rate. Heart rate 81 beats per minute. S1, S2 normal. No distinct murmur. Lungs reveal mostly clear breath sounds. A few scattered crackles. A few scattered rhonchi noted. Breath sounds equal bilaterally but diminished throughout. Abdomen soft. Bowel sounds are heard. Extremities are intact. No cyanosis, clubbing, or edema. Skin without rash. Neurologic examination is brief but nonfocal. White count 8.3, hemoglobin 11.7, hematocrit 37.0, platelet count normal. The patient's D-dimer is 1.04. Sodium 130, potassium 3.8, chloride 93, CO2 of 30, anion gap 7, BUN and creatinine were 27, 1.47. Troponins were 0.042, 0.026 and 0.031. Amylase is 118, lipase 150. Urine was negative. The CT scan of the patient's chest, abdomen and pelvis shows evidence of interstitial lung disease, slight enlargement of the patient's left-sided pulmonary nodule, old granulomatous disease, [id number] ascites, stable calcifications in the liver, para-aortic adenopathy and degenerative changes within the spine. Pulmonary perfusion scan shows it to be of low probability. The chest x-ray reveals advanced COPD, some pleural parenchymal scarring and some nodularity of the left lung base. ASSESSMENT: 1. Atypical right-sided chest discomfort, likely musculoskeletal in origin. 2. No evidence to suggest pulmonary embolism. 3. Low probability V/Q scan. 4. Left lower lobe lung nodule, being monitored by my partner. 5. History of interstitial lung disease. 6. History of chronic obstructive pulmonary disease. 7. History of gastrointestinal bleeding and chronic anemia. 8. Probable ascites. PLAN: The patient will need follow up with his primary care physician and also follow up with my partner, Dr. Pacheco. Dr. Pacheco is following and monitoring is left lung nodule which may have slightly increased in size since his previous scan. In addition, he is being seen by my partner, Dr. Pacheco, for both COPD and interstitial lung disease. We will continue to follow. Prognosis is guarded. Not sure when he will be discharged home. Additional recommendations and suggestions are forthcoming. MMODL / IJN: [id number] /
[2018-08-04] MEDS ORDERED: FAMOTIDINE 20 MG TAB PO SCH (21:00)
--- NOTE | 2018-08-05 19:07 | ECHOF ---
Referral Reason:chest pain MEASUREMENTS -------- HEIGHT: 167.6 cm WEIGHT: 43.1 kg BP: 147/84 RVIDd: 2.8 cm (< 3.3) IVSd: 0.8 cm (0.6 - 1.1) LVIDd: 3.6 cm (3.9 - 5.3) LVPWd: 0.8 cm (0.6 - 1.1) IVSs: 1.3 cm LVIDs: 2.5 cm LVPWs: 1.3 cm Ao Diam: 2.8 cm (2.0 - 3.7) AV Cusp: 1.9 cm (1.5 - 2.6) LA Diam: 2.2 cm (2.7 - 3.8) MV EXCURSION: 9.414 mm (> 18.000) MV EF SLOPE: 32 mm/s (70 - 150) EPSS: 0.3 cm MV E Torin: 0.43 m/s MV DecT: 147 ms MV A Torin: 0.66 m/s MV E/A Ratio: 0.65 RAP: 5.00 mmHg RVSP: 29.71 mmHg FINDINGS -------- Sinus rhythm. This was a technically difficult study with suboptimal views. The left ventricular size is normal. Left ventricular wall thickness is normal. Overall left vent ricular systolic function is mildly impaired with, an EF between 45 - 50 %. The right ventricle is normal in size. The left atrial size is normal. The right atrium was not well visualized. Aortic valve is trileaflet and is mildly thickened. Mild mitral regurgitation is present. Moderate tricuspid regurgitation present. The right ventricular systolic pressure, as measured by D oppler, is 29.71mmHg. The pulmonic valve was not well visualized. The aortic root size is normal. Normal inferior vena cava with normal inspiratory collapse consistent with estimated right atrial pre ssure of 5 mmHg. The pericardium is normal. CONCLUSIONS -------- 1. Sinus rhythm. 2. This was a technically difficult study with suboptimal views. 3. The left ventricular size is normal. 4. Left ventricular wall thickness is normal. 5. The right ventricle is normal in size. 6. The left atrial size is normal. 7. The right atrium was not well visualized. 8. Aortic valve is trileaflet and is mildly thickened. 9. Mild mitral regurgitation is present. 10. Moderate tricuspid regurgitation present. 11. The right ventricular systolic pressure, as measured by Doppler, is 29.71mmHg. 12. The pulmonic valve was not well visualized. 13. The aortic root size is normal. 14. Normal inferior vena cava with normal inspiratory collapse consistent with estimated right atrial pressure of 5 mmHg. 15. The pericardium is normal. [employer]: Beatrice Pate RDCS
== END 2018-08-04 14:50 | disposition home or self-care (01) | DRG 313 ==
LOC: EC 14:23 → 3SCARD 17:13
PROVIDERS: ADMIT Hospitalist; ATTEND Hospitalist
DX: R07.89 Other chest pain (principal); E43 Unspecified severe protein-calorie malnutrition; E87.1 Hypo-osmolality and hyponatremia; R18.8 Other ascites; Z68.1 Body mass index [BMI] 19.9 or less, adult; D63.8 Anemia in other chronic diseases classified elsewhere; I12.9 Hypertensive chronic kidney disease with stage 1 through stage 4 chronic kidney disease, or unspecified chronic kidney disease; J44.9 Chronic obstructive pulmonary disease, unspecified; M19.90 Unspecified osteoarthritis, unspecified site; N18.3 Chronic kidney disease, stage 3 (moderate); H26.9 Unspecified cataract; R26.9 Unspecified abnormalities of gait and mobility; R91.1 Solitary pulmonary nodule; N28.9 Disorder of kidney and ureter, unspecified; J84.10 Pulmonary fibrosis, unspecified; Z79.51 Long term (current) use of inhaled steroids; Z79.899 Other long term (current) drug therapy; Z87.01 Personal history of pneumonia (recurrent); Z87.11 Personal history of peptic ulcer disease; Z88.0 Allergy status to penicillin; Z82.49 Family history of ischemic heart disease and other diseases of the circulatory system
CPT/HCPCS: 36415; 71046; 71250; 74176; 78582; 80048; 80053; 80061; 81001; 82150; 82550; 82553; 83690; 83735; 83880; 84484; 85025; 85379; 85610; 85730; 93005; 93306; 94640; 96374; 96375; 99284

== ENCOUNTER 2018-09-23 13:34 | Emergency (ER) | payer MEDICARE ==
[2018-09-23 13:40] VITALS: TEMP 97
[2018-09-23] MEDS ORDERED: MAGNESIUM CITRATE 296 ML BOTTLE PO ONE (13:58)
--- NOTE | 2018-09-23 14:13 | ED ---
Abdominal Pain HPI - General Chief Complaint: Abdominal Pain Stated Complaint: bowel issues Time Seen by Provider: 09/23/18 13:48 Source: patient, RN notes reviewed, old records reviewed Mode of arrival: ambulatory Limitations: no limitations - History of Present Illness Initial Comments: Patient is a 83-year-old male presents emergency room today with complaints of lower abdominal pain. He reports that he has not been able to have a bowel movement 3 days. He did use a suppository but continues to fill is a fullness in his rectum. Patient states he's had normal urination. No nausea or vomiting. No other symptoms at this time. - Related Data Home Medications Medication Instructions Recorded Confirmed Cholecalciferol [Vitamin D3] 400 unit PO DAILY 12/10/14 09/23/18 Multivit-Min/FA/Lycopene/Lut 1 tab PO DAILY 12/10/14 09/23/18 [Centrum Silver Tablet] amLODIPine BESYLATE [Norvasc] 5 mg PO DAILY 12/10/14 09/23/18 Ascorbic Acid [Vitamin C] 1,000 mg PO DAILY 05/12/18 09/23/18 Previous Rx's Medication Instructions Recorded Budesonide-Formot 160-4.5 Mcg 2 puff INHALATION RT-BID #1 puff 12/14/14 [Symbicort 160-4.5 Mcg Inhaler] Docusate [Colace] 100 mg PO DAILY #20 capsule 09/23/18 Allergies Allergy/AdvReac Type Severity Reaction Status Date / Time Penicillins Allergy Rash/Hives Verified 09/23/18 14:52 Review of Systems ROS Statement: Those systems with pertinent positive or pertinent negative responses have been documented in the HPI. ROS Other: All systems not noted in ROS Statement are negative. Past Medical History Past Medical History: Eye Disorder, Hypertension, Osteoarthritis (OA), Pneumonia Additional Past Medical History / Comment(s): Lower GI bleed, peptic ulcer, gastritis, normocytic anemia, past pneumonia and pt states since then he has had "spots" on his lungs, CKD stage III, L eye small cataract. History of Any Multi-Drug Resistant Organisms: None Reported Past Surgical History: Adenoidectomy, Hernia Repair, Tonsillectomy Additional Past Surgical History / Comment(s): colonoscopies/egds, lt inguinal hernia Past Anesthesia/Blood Transfusion Reactions: No Reported Reaction Additional Past Anesthesia/Blood Transfusion Reaction / Comment(s): Pt states he has received blood in past without reaction. Past Psychological History: No Psychological Hx Reported Smoking Status: Never smoker Past Alcohol Use History: None Reported Past Drug Use History: None Reported - Past Family History Father Family Medical History: Myocardial Infarction ([place]) Additional Family Medical History / Comment(s): Father had heart disease. He lived till age 87 Mother Family Medical History: Myocardial Infarction ([place]) Additional Family Medical History / Comment(s): Mother had heart disease. She lived till age 95 General Exam - General Exam Comments Initial Comments: 83-year-old male. Alert and oriented 3. No significant distress. Frail. Limitations: no limitations General appearance: alert, in no apparent distress Head exam: Present: atraumatic, normocephalic, normal inspection Eye exam: Present: normal appearance, PERRL, EOMI. Absent: scleral icterus, conjunctival injection, periorbital swelling ENT exam: Present: normal exam, mucous membranes moist Neck exam: Present: normal inspection. Absent: tenderness, meningismus, lymphadenopathy Respiratory exam: Present: normal lung sounds bilaterally. Absent: respiratory distress, wheezes, rales, rhonchi, stridor Cardiovascular Exam: Present: regular rate, normal rhythm, normal heart sounds. Absent: systolic murmur, diastolic murmur, rubs, gallop, clicks GI/Abdominal exam: Present: soft, normal bowel sounds. Absent: distended, tenderness, guarding, rebound, rigid Rectal exam: Present: normal rectal tone, fecal impaction, hemorrhoids. Absent : normal inspection Extremities exam: Present: normal inspection Back exam: Present: normal inspection Neurological exam: Present: alert, oriented X3, CN II-XII intact Psychiatric exam: Present: normal affect, normal mood Skin exam: Present: warm, dry, intact, normal color. Absent: rash Course Vital Signs 09/23/18 09/23/18 13:37 17:51 Temperature 97 F L Pulse Rate 86 64 Respiratory 18 20 Rate Blood Pressure 162/101 104/72 O2 Sat by Pulse 100 92 L Oximetry Medical Decision Making - Medical Decision Making 83-year-old male presents emergency department today with complaints of constipation for the past 3 days. He reports he has a hard ball of stool in his rectum. X-rays completed to show moderate amount of stool in the pelvis. Patient has large hemorrhoids over his rectum that are tender. Patient underwent fecal disimpaction. Tolerated the procedure well. He later had a soapsuds and a milk and molasses enema. Patient drank half a bottle of mag citrate. Patient later had a large bowel movement was feeling better. We'll discharge the Patient with prescription for stool softeners. Discussed close follow-up with primary care physician. All questions answered return parameters were discussed. - Radiology Data Radiology results: report reviewed Moderate amount of stool within the pelvic bones. No evidence of obstruction or free air. Disposition Clinical Impression: Constipation, Fecal impaction Disposition: HOME SELF-CARE Condition: Good Instructions (If sedation given, give patient instructions): Constipation (ED) Additional Instructions: Follow-up with your primary care physician. Take stool softeners daily. Return to the emergency department if any alarming signs or symptoms occur. Prescriptions: Docusate [Colace] 100 mg PO DAILY #20 capsule Is patient prescribed a controlled substance at d/c from ED?: No Referrals: Corwin Leija DO [Primary Care Provider] - 1-2 days Time of Disposition: 17:30
--- NOTE | 2018-09-23 14:33 | XR ---
EXAMINATION TYPE: XR KUB DATE OF EXAM: 09/23/2018 CLINICAL DATA: 83-year-old male constipation for 3 days, pain, PHH COMPARISON: None FINDINGS: Lung bases are clear. No evidence for free intraperitoneal air. No dilated small bowel or air-fluid levels. Scattered air and stool seen throughout the colon extendi ng distally into the rectum. Moderate stool within the pelvis. Vascular calcifications left upper quadrant. No definite suspicious calcifications identified. Degenerated dextro convex scoliosis of the lumbar spine. IMPRESSION: 1. Moderate stool in the pelvis. 2.No evidence of bowel obstruction or free intraperitoneal air.
[2018-09-23 17:52] VITALS: BP 104/72; PULSE 64; RESP 20
== END 2018-09-23 17:52 | disposition home or self-care (01) ==
LOC: EC 13:34
DX: K59.00 Constipation, unspecified (principal); I12.9 Hypertensive chronic kidney disease with stage 1 through stage 4 chronic kidney disease, or unspecified chronic kidney disease; N18.3 Chronic kidney disease, stage 3 (moderate); Z79.899 Other long term (current) drug therapy; Z88.0 Allergy status to penicillin
CPT/HCPCS: 74018; 99284

== ENCOUNTER → 2018-12-01 | Outpatient (CLI) | payer MEDICARE ==
--- NOTE | 2018-12-01 18:40 | US ---
EXAMINATION TYPE: US venous doppler duplex LE BI DATE OF EXAM: 12/01/2018 6:17 PM COMPARISON: US RLEV 2016 CLINICAL HISTORY: R60.0 Localized Edema. Swelling bilateral legs x 1 week. SIDE PERFORMED: Bilateral TECHNIQUE: The lower extremity deep venous system is examined utilizing real time linear array sonog tita with graded compression, doppler sonography and color-flow sonography. VESSELS IMAGED: External Iliac Vein (EIV) Common Femoral Vein Deep Femoral Vein Greater Saphenous Vein * Femoral Vein Popliteal Vein Small Saphenous Vein * Proximal Calf Veins (* superficial vessels) Right Leg: No evidence of DVT in the right lower extremity. Left Leg: No evidence of DVT in the left lower extremity. IMPRESSION: normal bilateral leg duplex venous sonogram.
== END | disposition home or self-care (01) ==
LOC: RADUSWWP 17:13
PROVIDERS: ATTEND Family Medicine
DX: R60.0 Localized edema (principal)
CPT/HCPCS: 93970

== ENCOUNTER → 2019-03-16 | Outpatient (CLI) | payer MEDICARE ==
--- NOTE | 2019-03-16 17:11 | CT ---
EXAMINATION TYPE: CT abdomen pelvis wo con DATE OF EXAM: 03/16/2019 COMPARISON: CT chest abdomen pelvis 08/03/2018 INDICATION: Right lower hernia, per patient. Diverticulitits. DLP: 600 mGycm, Automated exposure control for dose reduction was used. CONTRAST: IV None Study performed with Oral Contrast TECHNIQUE: Axial images were obtained from above the diaphragm to the pubic rami in the axial plane a t 5 mm thick sections. Reconstructed images are reviewed on the computer in the coronal plane. FINDINGS: Limited CT sections are obtained the lung bases. There is some pulmonary fibrosis in the lung bases bilaterally.. Coronary artery calcification is present. CT ABDOMEN: Ascites is present. Left kidney appears atrophic compared to the right. Oral contrast ext ends to the colon. Note is made of multiple diverticular changes within the sigmoid colon. Liver: No discrete masses on this noncontrast study. Spleen: Normal Pancreas: Normal Adrenal glands: The adrenal glands are normal. Gallbladder: Normal Kidneys: No masses are evident. No hydronephrosis is present. No cysts are present. No renal stone s are identified. Aorta: Vascular calcification is within the aorta. Inferior vena cava: Normal. CT PELVIS: Free fluid is within the pelvis. Loops of bowel within the abdomen and pelvis are normal. There are loops of bowel which are incom pletely distended or lack oral contrast limiting their evaluation. Diverticulosis of the sigmoid colo n is evident. Appendix: Not visualized. Urinary bladder: Normal. Genitourinary structures: Prostate has minimal prominence. Osseous structures: No suspicious lytic or sclerotic lesions. There is a compression deformity of L1. No posterior wall displacement is evident. This was present 08/03/2018. IMPRESSIONS: 1. Ascites 2. Diverticulosis without acute diverticulitis.
== END | disposition home or self-care (01) ==
LOC: RADCTMAIN 13:27
PROVIDERS: ATTEND Surgery Plastic and Reconstructive Surgery
DX: R18.8 Other ascites (principal); Z88.0 Allergy status to penicillin
CPT/HCPCS: 36415; 74176; 82565; 84520

== ENCOUNTER → 2019-03-18 | Day surgery (SDC) | payer MEDICARE ==
[2019-03-13 16:14] VITALS: BMI 18.3
[~2019-03-18] MED LIST: LACTATED RINGERS 1,000 ML IV SCH; LIDOCAINE 1% 20 ML VIAL (10MG/ML) FOR IV START INTRADERMA PRN; LIDOCAINE 1% INJ 10MG/ML (20 ML MDV) ONE; PROPOFOL 10 MG/ML 20 ML VIAL IV ONE
[2019-03-18 08:55] VITALS: TEMP 98.5
--- NOTE | 2019-03-18 09:06 | P.GSHP ---
History of Present Illness H&P Date: 03/18/19 CHIEF COMPLAINT: GERD HISTORY OF PRESENT ILLNESS: The patient is a 84-year-old male who presents reports gastroesophageal reflux disease. Upper endoscopy was offered for further evaluation and management. PAST MEDICAL HISTORY: Please see list. PAST SURGICAL HISTORY: Please see list. MEDICATIONS: Please see list. ALLERGIES: Please see list. SOCIAL HISTORY: No illicit drug use FAMILY HISTORY: No reports of Crohn disease or ulcerative colitis. REVIEW OF ORGAN SYSTEMS: CONSTITUTIONAL: No reports of fevers or chills. GI: Denies any blood in stools or constipation. PHYSICAL EXAM: VITAL SIGNS: Stable GENERAL: Well-developed and pleasant in no acute distress. HEENT: No scleral icterus. Extraocular movements grossly intact. Moist buccal mucosa. NECK: Supple without lymphadenopathy. CHEST: Unlabored respirations. Equal bilateral excursions. CARDIOVASCULAR: Regular rate and rhythm. Distal 2+ pulses. ABDOMEN: Soft, nondistended. MUSCULOSKELETAL: No clubbing, cyanosis, or edema. ASSESSMENT: 1. Gastroesophageal reflux disease PLAN: 1. Recommend proceeding with an upper endoscopy Past Medical History Past Medical History: Eye Disorder, Hypertension, Osteoarthritis (OA), Pneumonia, Renal Disease Additional Past Medical History / Comment(s): spouse states "having back pain poss hernia,"Lower GI bleed, peptic ulcer, gastritis, normocytic anemia, past pneumonia and pt states since then he has had "spots" on his lungs, CKD stage III, L eye small cataract. History of Any Multi-Drug Resistant Organisms: None Reported Past Surgical History: Adenoidectomy, Hernia Repair, Tonsillectomy Additional Past Surgical History / Comment(s): colonoscopies/egds, lt inguinal hernia Past Anesthesia/Blood Transfusion Reactions: No Reported Reaction Additional Past Anesthesia/Blood Transfusion Reaction / Comment(s): Pt states he has received blood in past without reaction. Smoking Status: Never smoker - Past Family History Father Family Medical History: Chest Pain / Angina Additional Family Medical History / Comment(s): Father had heart disease. He lived till age 87 Mother Family Medical History: No Reported History Additional Family Medical History / Comment(s): Mother had heart disease. She lived till age 95 Medications and Allergies Home Medications Medication Instructions Recorded Confirmed Type Multivit-Min/FA/Lycopene/Lut 1 tab PO DAILY 12/10/14 03/18/19 History [Centrum Silver Tablet] Budesonide-Formot 160-4.5 Mcg 2 puff INHALATION RT-BID #1 puff 12/14/14 03/18/19 Rx [Symbicort 160-4.5 Mcg Inhaler] Ascorbic Acid [Vitamin C] 1,000 mg PO DAILY 05/12/18 03/18/19 History Calcium Carbonate/Vitamin D3 1 each PO DAILY 03/13/19 03/18/19 History [Caltrate 600 Plus D3 Tablet] Midodrine [ProAmatine] 5 mg PO TID 03/13/19 03/18/19 History Torsemide [Demadex] 5 mg PO DAILY 03/13/19 03/18/19 History Allergies Allergy/AdvReac Type Severity Reaction Status Date / Time Penicillins Allergy Rash/Hives Verified 03/18/19 08:50 Surgical - Exam Vital Signs Temp Pulse Resp BP Pulse Ox 98.5 F 84 16 150/76 100 03/18/19 08:53 03/18/19 08:53 03/18/19 08:53 03/18/19 08:53 03/18/19 08:53
--- NOTE | 2019-03-18 09:25 | P.PCN ---
Date of Procedure: 03/18/19 Description of Procedure: PREOPERATIVE DIAGNOSIS: Gastroesophageal reflux disease. POSTOPERATIVE DIAGNOSIS: Gastroesophageal reflux disease. Diaphragmatic hiatal hernia Gastritis along the antrum Gastric diverticulum distal stomach OPERATION: Esophagogastroduodenoscopy with biopsies along antrum. SURGEON: Kathelen Carroll MD ANESTHESIA: MAC. INDICATIONS: The patient is a 84-year-old male who presents with a history of reflux disease. Benefits and risks of the procedure were described. Informed consent was obtained. DESCRIPTION: The patient was brought into the endoscopy suite and laid in the left lateral decubitus position. An Olympus gastroscope was passed along the posterior oropharynx down to the distal esophagus where the squamocolumnar junction was encountered at 37 cm from the incisors. The stomach was entered and no bile reflux was found. Additional findings are listed below. Biopsies with cold forceps were obtained of the antrum. The first through third portion of the duodenum was examined and unremarkable. Retroflexion of the scope confirmed Hill grade 2 lower esophageal valve. The squamocolumnar junction demonstrated LA grade B erosive esophagitis. The stomach was desufflated. The patient tolerated the procedure well. FINDINGS: Squamocolumnar junction 37 cm from the incisors. Diaphragmatic hiatus at 40 cm. Hiatal hernia, 3 cm, sliding type Hill grade 2 lower esophageal valve. LA grade B erosive esophagitis. No active duodenitis. Chronic gastritis without recent bleed Gastric diverticulum distal stomach along greater curvature of the stomach RECOMMENDATIONS: Upper endoscopy as needed. Plan - Discharge Summary Discharge Rx Participant: No New Discharge Prescriptions: No Action Multivit-Min/FA/Lycopene/Lut [Centrum Silver Tablet] 1 tab PO DAILY Budesonide-Formot 160-4.5 Mcg [Symbicort 160-4.5 Mcg Inhaler] 2 puff INHALATION RT-BID #1 puff Ascorbic Acid [Vitamin C] 1,000 mg PO DAILY Midodrine [ProAmatine] 5 mg PO TID Calcium Carbonate/Vitamin D3 [Caltrate 600 Plus D3 Tablet] 1 each PO DAILY Torsemide [Demadex] 5 mg PO DAILY Discharge Medication List Multivit-Min/FA/Lycopene/Lut [Centrum Silver Tablet] 1 tab PO DAILY 12/10/14 [History] Budesonide-Formot 160-4.5 Mcg [Symbicort 160-4.5 Mcg Inhaler] 2 puff INHALATION RT-BID #1 puff 12/14/14 [Rx] Ascorbic Acid [Vitamin C] 1,000 mg PO DAILY 05/12/18 [History] Calcium Carbonate/Vitamin D3 [Caltrate 600 Plus D3 Tablet] 1 each PO DAILY 03/13/19 [History] Midodrine [ProAmatine] 5 mg PO TID 03/13/19 [History] Torsemide [Demadex] 5 mg PO DAILY 03/13/19 [History] Follow up Appointment(s)/Referral(s): Kathleen Carroll MD [STAFF PHYSICIAN] - As Needed Patient Instructions/Handouts: *Surgery [facility] - (Anesthesia) Endoscopy Discharge Instructions, Upper Endoscopy (DC) Activity/Diet/Wound Care/Special Instructions: REST TODAY, ENCOURAGE FLUIDS AT HOME
[2019-03-18 09:44] VITALS: BP 130/79
[2019-03-18 10:02] VITALS: PULSE 70; RESP 18
== END | disposition home or self-care (01) ==
LOC: ORWHC2ENDO 08:26
PROVIDERS: ATTEND Surgery Plastic and Reconstructive Surgery
DX: K29.50 Unspecified chronic gastritis without bleeding (principal); K22.10 Ulcer of esophagus without bleeding; K31.4 Gastric diverticulum; K44.9 Diaphragmatic hernia without obstruction or gangrene; K21.9 Gastro-esophageal reflux disease without esophagitis; M19.90 Unspecified osteoarthritis, unspecified site; Z87.01 Personal history of pneumonia (recurrent); I12.9 Hypertensive chronic kidney disease with stage 1 through stage 4 chronic kidney disease, or unspecified chronic kidney disease; N18.3 Chronic kidney disease, stage 3 (moderate); Z87.11 Personal history of peptic ulcer disease; Z87.19 Personal history of other diseases of the digestive system; D64.9 Anemia, unspecified; Z79.51 Long term (current) use of inhaled steroids; Z79.899 Other long term (current) drug therapy; Z88.0 Allergy status to penicillin
CPT/HCPCS: 43239; 88305

== ENCOUNTER → 2019-04-09 | Outpatient (CLI) | payer MEDICARE ==
[2019-04-10 01:58] LABS: African American GFR (CKD) 36.4 (60.0-200.0); Albumin 4.4 g/dL (3.80-4.90); Albumin/Globulin Ratio 2.1 (1.60-3.17); BUN/Creat Ratio 18.42 Ratio (12.00-20.00); Calcium 9.9 mg/dL (8.7-10.3); Globulin 2.1 g/dL (1.6-3.3); Potassium 4.8 mmol/L (3.5-5.5); Total Bilirubin 0.5 mg/dL (0.2-1.2); Total Protein 6.5 g/dL (6.2-8.2)
== END | disposition home or self-care (01) ==
LOC: LABWHC1 14:06
PROVIDERS: ATTEND Surgery Plastic and Reconstructive Surgery
DX: K72.00 Acute and subacute hepatic failure without coma (principal)
CPT/HCPCS: 36415; 80053

== ENCOUNTER → 2019-05-01 | Outpatient (CLI) | payer MEDICARE ==
--- NOTE | 2019-05-01 10:41 | US ---
EXAMINATION TYPE: US abdomen limited DATE OF EXAM: 05/01/2019 COMPARISON: NONE CLINICAL HISTORY: R18.8 Other Ascites. ascites seen on CT in February TECHNIQUE/FINDINGS: Ultrasound was performed of the abdomen and a limited fashion to evaluate for asc ites. Mild fluid seen within 3 quadrants of abdomen. IMPRESSION: Small volume abdominal ascites
== END | disposition home or self-care (01) ==
LOC: RADUSWWP 08:45
PROVIDERS: ATTEND Internal Medicine Gastroenterology
DX: R18.8 Other ascites (principal)
CPT/HCPCS: 76705

== ENCOUNTER → 2019-05-25 | Outpatient (CLI) | payer MEDICARE ==
[2019-05-25 14:48] LABS: HCT 35.5 % (39.0-53.0); HGB 11.4 gm/dL (13.0-17.5); MCH 31.4 pg (25.0-35.0); MCHC 32.2 g/dL (31.0-37.0); MCV 97.5 fL (80.0-100.0); Mean Platelet Volume 6.1; Platelet Count 287 k/uL (150-450); RBC 3.64 m/uL (4.30-5.90); RDW 12.5 % (11.5-15.5); WBC 9.3 k/uL (3.8-10.6)
[2019-05-25 16:00] LABS: Appearance,Urine Clear (Clear); Bilirubin,Urine Negative (Negative); Blood,Urine Negative (Negative); Color,Urine Yellow; Glucose,Urine (UA) Negative (Negative); Ketones,Urine Negative (Negative); Leukocyte Esterase,Urine Negative (Negative); Nitrite,Urine Negative (Negative); PH, Urine 5.5 (5.0-8.0); Protein,Urine Negative (Negative); Specific Gravity,Urine 1.011 (1.001-1.035); Urobilinogen,Urine <2.0 mg/dL (<2.0)
[2019-05-25 18:47] LABS: African American GFR (CKD) 41.7 (60.0-200.0); Albumin 4.4 g/dL (3.80-4.90); BUN/Creat Ratio 18.82 Ratio (12.00-20.00); Calcium 9.8 mg/dL (8.7-10.3); Globulin 2.2 g/dL (1.6-3.3); Potassium 4.9 mmol/L (3.5-5.5); Total Bilirubin 0.5 mg/dL (0.3-1.2); Total Protein 6.6 g/dL (6.2-8.2); Uric Acid 5.6 mg/dL (3.7-8.7)
[2019-05-25 18:48] LABS: % Iron Saturation 20.77 (15.00-50.00); Magnesium 2.1 mg/dL (1.5-2.4); Phosphorus 4.2 mg/dL (2.4-5.1)
[2019-05-25 19:38] LABS: Ferritin 650.8 ng/mL (22.0-322.0)
== END | disposition home or self-care (01) ==
LOC: LABWHC1 13:35
PROVIDERS: ATTEND Internal Medicine
DX: N18.3 Chronic kidney disease, stage 3 (moderate) (principal); D63.1 Anemia in chronic kidney disease; N39.0 Urinary tract infection, site not specified; M10.9 Gout, unspecified; E55.9 Vitamin D deficiency, unspecified; N25.81 Secondary hyperparathyroidism of renal origin
CPT/HCPCS: 36415; 80053; 81003; 82306; 82728; 83540; 83550; 83735; 83970; 84100; 84550; 85027

== ENCOUNTER 2019-09-28 16:44 | Emergency (ER) | payer MEDICARE ==
--- NOTE | 2019-09-28 17:40 | CT ---
EXAMINATION TYPE: CT brain [place] DATE OF EXAM: 09/28/2019 COMPARISON: None HISTORY: Fall today with posterior head injury. Headache. Neck pain. CT DLP: 2448.2 mGycm Automated exposure control for dose reduction was used. There is cerebral cortical atrophy. There is hypodensity in the periventricular white matter. There i s no mass effect nor midline shift. There is no sign of intracranial hemorrhage. There is intact calv arium with. There is mucosal thickening and opacification left side of the sphenoid sinus. I see no f ocal bone destruction. There is accentuated upper cervical lordotic curvature. There is degenerative disc space narrowing at C5-6 and C6-7. There is no evidence of cervical spine fracture. Facet joints show mild hypertrophic degenerative changes. The skull base is intact. IMPRESSION: Spondylotic changes in the lower cervical spine. No fracture. Cerebral atrophy and chronic small vessel ischemia. No acute intracranial abnormality.
--- NOTE | 2019-09-28 18:02 | ED ---
Fall HPI - General Chief Complaint: Fall Stated Complaint: fall/head laceration Time Seen by Provider: 09/28/19 16:47 Source: EMS Mode of arrival: EMS - History of Present Illness Initial Comments: Patient is a 84-year-old male presenting via EMS after falling today. Patient states he was going to the come to the ER for constipation and then when he was getting ready he fell backwards hitting his head on the dresser. He denies loss consciousness. He is not on blood thinners. Patient states he is having only minor pain in his head. There is a small laceration there. Bleeding is controlled at this time. He denies pain anywhere else. He denies any abdominal pain. Denies nausea, vomiting, diarrhea. He states he has not had a bowel movement a few days. He denies fever, chills, chest pain, shortness of breath. He has no other complaints at this time. Upon arrival to the ER, patient's BP is elevated at 185/98, heart rate was 102, rest of vitals normal. - Related Data Home Medications Medication Instructions Recorded Confirmed Multivit-Min/FA/Lycopene/Lut 1 tab PO DAILY 12/10/14 03/18/19 [Centrum Silver Tablet] Ascorbic Acid [Vitamin C] 1,000 mg PO DAILY 05/12/18 03/18/19 Calcium Carbonate/Vitamin D3 1 each PO DAILY 03/13/19 03/18/19 [Caltrate 600 Plus D3 Tablet] Midodrine [ProAmatine] 5 mg PO TID 03/13/19 03/18/19 Torsemide [Demadex] 5 mg PO DAILY 03/13/19 03/18/19 Previous Rx's Medication Instructions Recorded Budesonide-Formot 160-4.5 Mcg 2 puff INHALATION RT-BID #1 puff 12/14/14 [Symbicort 160-4.5 Mcg Inhaler] Allergies Allergy/AdvReac Type Severity Reaction Status Date / Time Penicillins Allergy Rash/Hives Verified 03/18/19 08:50 Review of Systems ROS Statement: Those systems with pertinent positive or pertinent negative responses have been documented in the HPI. ROS Other: All systems not noted in ROS Statement are negative. Past Medical History Past Medical History: Eye Disorder, Hypertension, Osteoarthritis (OA), Pneumonia, Renal Disease Additional Past Medical History / Comment(s): spouse states "having back pain poss hernia,"Lower GI bleed, peptic ulcer, gastritis, normocytic anemia, past pneumonia and pt states since then he has had "spots" on his lungs, CKD stage III, L eye small cataract. History of Any Multi-Drug Resistant Organisms: None Reported Past Surgical History: Adenoidectomy, Hernia Repair, Tonsillectomy Additional Past Surgical History / Comment(s): colonoscopies/egds, lt inguinal hernia Past Anesthesia/Blood Transfusion Reactions: No Reported Reaction Additional Past Anesthesia/Blood Transfusion Reaction / Comment(s): Pt states he has received blood in past without reaction. Past Psychological History: No Psychological Hx Reported Smoking Status: Never smoker - Past Family History Father Family Medical History: Chest Pain / Angina Additional Family Medical History / Comment(s): Father had heart disease. He lived till age 87 Mother Family Medical History: No Reported History Additional Family Medical History / Comment(s): Mother had heart disease. She lived till age 95 General Exam - General Exam Comments Initial Comments: GENERAL: Well-appearing, well-nourished and in no acute distress. HEAD: Normocephalic. Small superficial laceration to right posterior head. No hematoma. EYES: Pupils equal round and reactive to light, extraocular movements intact, sclera anicteric, conjunctiva are normal. ENT: TMs normal, nares patent, oropharynx clear without exudates. Moist mucous membranes. NECK: Normal range of motion, supple without lymphadenopathy or JVD. LUNGS: Breath sounds clear to auscultation bilaterally and equal. No wheezes rales or rhonchi. HEART: Regular rate and rhythm without murmurs, rubs or gallops. ABDOMEN: Soft, nontender, normoactive bowel sounds. No guarding, no rebound. No masses appreciated. : Deferred EXTREMITIES: Normal range of motion, no pitting or edema. No clubbing or cyanosis. NEUROLOGICAL: Cranial nerves II through XII grossly intact. Normal speech, normal gait. PSYCH: Normal mood, normal affect. SKIN: Warm, Dry, normal turgor, no rashes. Minor superficial 0.5 cm laceration the posterior right side of the head. No sutures needed. Limitations: altered mental status Course Vital Signs 09/28/19 09/28/19 16:50 19:03 Temperature 98.6 F Pulse Rate 102 H 103 H Respiratory 20 20 Rate Blood Pressure 185/98 166/89 O2 Sat by Pulse 97 97 Oximetry Medical Decision Making - Medical Decision Making Patient is a 84-year-old male presenting after falling as well as constipation. He did hit his head. No LOC, thinners. Very minor 0.5 cm superficial laceration on the posterior aspect of the head. Bleeding is controlled. This was cleaned and one Steri-Strip applied. CT of the head and neck showed no acute abnormalities. KUB shows no acute abnormalities. Patient is having no belly pain. Patient stable for discharge at this time. We did discuss continuing with MiraLAX at home, increasing water intake as well as trying at home enema. They are in agreement this plan of care. Return parameters were discussed with the patient and his and they both verbalized understanding. Disposition Clinical Impression: Fall, Constipation, Laceration of head Disposition: HOME SELF-CARE Condition: Stable Instructions (If sedation given, give patient instructions): Fall Prevention for Older Adults (ED) Additional Instructions: Please return to the Emergency Department if symptoms worsen or any other concerns. Continue with MiraLAX, increase water intake for constipation. Follow-up with PCP as discussed. Is patient prescribed a controlled substance at d/c from ED?: No Referrals: Corwin Leija DO [Primary Care Provider] - 1-2 days
--- NOTE | 2019-09-28 19:32 | XR ---
EXAMINATION TYPE: XR KUB DATE OF EXAM: 09/28/2019 COMPARISON: 09/23/2018 HISTORY: Constipation TECHNIQUE: 2 views supine FINDINGS: Bowel gas pattern is normal. There is no sign of intestinal obstruction or pneumoperitoneum . Fecal pattern is normal. There is no sign of a mass. There is 1 cm amorphous calcification over the left mid abdomen that is probably costal cartilage. IMPRESSION: Nonacute abdomen. No adverse change compared to old exam.
[2019-09-28 20:02] VITALS: BP 164/78; PULSE 98; RESP 18; TEMP 97.9
== END 2019-09-28 20:02 | disposition home or self-care (01) ==
LOC: EC 16:44
DX: S01.91XA Laceration without foreign body of unspecified part of head, initial encounter (principal); K59.00 Constipation, unspecified; I12.9 Hypertensive chronic kidney disease with stage 1 through stage 4 chronic kidney disease, or unspecified chronic kidney disease; N18.3 Chronic kidney disease, stage 3 (moderate); Z79.899 Other long term (current) drug therapy; Z88.0 Allergy status to penicillin; W19.XXXA Unspecified fall, initial encounter
CPT/HCPCS: 70450; 72125; 74018; 99284

== ENCOUNTER 2019-09-29 08:10 | Emergency (ER) | payer MEDICARE ==
[2019-09-29 08:15] VITALS: RESP 16; TEMP 98.2
[2019-09-29] MEDS ORDERED: SODIUM CHLORIDE 0.9% 1,000 ML IV STA (08:16)
[2019-09-29] MEDS ORDERED: SODIUM CHLORIDE 0.9% 500 ML 500 ML IV STA (08:16)
[2019-09-29 08:38] LABS: Basophils % (A) 0 %; Eosinophils # (A) 0.1 k/uL (0-0.7); Eosinophils % (A) 1 %; HCT 40.5 % (39.0-53.0); HGB 13.2 gm/dL (13.0-17.5); Lymphocytes % (A) 9 %; MCH 29.4 pg (25.0-35.0); MCHC 32.6 g/dL (31.0-37.0); MCV 90.3 fL (80.0-100.0); Mean Platelet Volume 6.8; Monocytes # (A) 0.7 k/uL (0-1.0); Monocytes % (A) 6 %; Neutrophils # (A) 9.2 k/uL (1.3-7.7); Neutrophils % (A) 82 %; Platelet Count 412 k/uL (150-450); RBC 4.48 m/uL (4.30-5.90); RDW 12.9 % (11.5-15.5); WBC 11.3 k/uL (3.8-10.6)
[2019-09-29 08:50] LABS: Appearance,Urine Clear (Clear); Bilirubin,Urine Negative (Negative); Blood,Urine Small (Negative); Color,Urine Yellow; Glucose,Urine (UA) Negative (Negative); Ketones,Urine 1+ (Negative); Leukocyte Esterase,Urine Negative (Negative); Mucus,Urine Rare /hpf; Nitrite,Urine Negative (Negative); PH, Urine 6.5 (5.0-8.0); Protein,Urine 1+ (Negative); RBC,Urine 15 /hpf (0-5); Specific Gravity,Urine 1.014 (1.001-1.035); Urobilinogen,Urine <2.0 mg/dL (<2.0); WBC,Urine 1 /hpf (0-5)
[2019-09-29 08:55] LABS: Albumin 4.4 g/dL (3.5-5.0); Calcium 9.8 mg/dL (8.4-10.2); Magnesium 2.1 mg/dL (1.6-2.3); Potassium 4.5 mmol/L (3.5-5.1); Total Bilirubin 0.9 mg/dL (0.2-1.3); Total Protein 7.6 g/dL (6.3-8.2)
--- NOTE | 2019-09-29 09:03 | XR ---
EXAMINATION TYPE: XR KUB DATE OF EXAM: 09/29/2019 8:53 AM CLINICAL HISTORY: Abdominal pain and back pain TECHNIQUE: Single supine KUB image of the abdomen is obtained. COMPARISON: 09/28/2019. FINDINGS: No dilated large or small bowel. Overall paucity of bowel gas in the upper abdomen. Multipl e loops of nondilated bowel seen in the pelvis. Degenerative changes the osseous structures and diffu se osseous demineralization are again seen as seen on the exam of 09/28/2019. Costophrenic angles are w ell aerated. Again there is an amorphous calcification of the left upper quadrant that is possibly co stal cartilage. IMPRESSION: Nonobstructive bowel gas pattern as seen on the exam of 09/28/2019.
--- NOTE | 2019-09-29 09:04 | XR ---
EXAMINATION TYPE: XR chest 2V DATE OF EXAM: 09/29/2019 COMPARISON: 08/02/2018 HISTORY: Abdominal pain, nausea, and vomiting TECHNIQUE: Frontal and lateral views of the chest are obtained. FINDINGS: There is no focal air space opacity, pleural effusion, or pneumothorax seen. The cardiac silhouette size is within normal limits. Mid thoracic compression deformity is seen with diffuse osse ous demineralization of the lumbar compression deformities also seen. Findings are unchanged from 08/02 left lower lobe pulmonary nodule seen on the CT dated 08/03/2018 is not well appreciated radiogra phically. IMPRESSION: 1. No acute cardiopulmonary process. 2. The left lower lobe known pulmonary nodule seen on the prior CT of 08/03/2018 is not well seen on x- ray. The patient is due for a nonemergent CT thorax to evaluate for any interval growth. 3. Stable thoracic and lumbar compression deformities.
--- NOTE | 2019-09-29 09:18 | ED ---
Fall HPI - General Chief Complaint: Fall Stated Complaint: Back pain Time Seen by Provider: 09/29/19 08:10 Source: patient, EMS, RN notes reviewed, old records reviewed Mode of arrival: EMS - History of Present Illness Initial Comments: This is a 84-year-old male who is brought in by EMS after being found on the floor. He states he went to sleep his chair and ended up on the floor is unsure how he got there he complains some low back pain and was here yesterday and diagnosed with constipation he states he has had a bowel movement over a week. He denies any fevers chills nausea vomiting sweats he states the pain is very mild now and does not require any medication. He denies any head neck or back pain other than that mentioned above. No cough or phlegm production no other modifying factors no trouble with urination. MD Complaint: fall - Related Data Home Medications Medication Instructions Recorded Confirmed Multivit-Min/FA/Lycopene/Lut 1 tab PO DAILY 12/10/14 03/18/19 [Centrum Silver Tablet] Ascorbic Acid [Vitamin C] 1,000 mg PO DAILY 05/12/18 03/18/19 Calcium Carbonate/Vitamin D3 1 each PO DAILY 03/13/19 03/18/19 [Caltrate 600 Plus D3 Tablet] Midodrine [ProAmatine] 5 mg PO TID 03/13/19 03/18/19 Torsemide [Demadex] 5 mg PO DAILY 03/13/19 03/18/19 Previous Rx's Medication Instructions Recorded Budesonide-Formot 160-4.5 Mcg 2 puff INHALATION RT-BID #1 puff 12/14/14 [Symbicort 160-4.5 Mcg Inhaler] Allergies Allergy/AdvReac Type Severity Reaction Status Date / Time Penicillins Allergy Rash/Hives Verified 03/18/19 08:50 Review of Systems ROS Statement: Those systems with pertinent positive or pertinent negative responses have been documented in the HPI. ROS Other: All systems not noted in ROS Statement are negative. Past Medical History Past Medical History: Eye Disorder, Hypertension, Osteoarthritis (OA), Pneumonia, Renal Disease Additional Past Medical History / Comment(s): spouse states "having back pain poss hernia,"Lower GI bleed, peptic ulcer, gastritis, normocytic anemia, past pneumonia and pt states since then he has had "spots" on his lungs, CKD stage III, L eye small cataract. History of Any Multi-Drug Resistant Organisms: None Reported Past Surgical History: Adenoidectomy, Hernia Repair, Tonsillectomy Additional Past Surgical History / Comment(s): colonoscopies/egds, lt inguinal hernia Past Anesthesia/Blood Transfusion Reactions: No Reported Reaction Additional Past Anesthesia/Blood Transfusion Reaction / Comment(s): Pt states he has received blood in past without reaction. Past Psychological History: No Psychological Hx Reported Smoking Status: Never smoker - Past Family History Father Family Medical History: Chest Pain / Angina Additional Family Medical History / Comment(s): Father had heart disease. He lived till age 87 Mother Family Medical History: No Reported History Additional Family Medical History / Comment(s): Mother had heart disease. She lived till age 95 General Exam - General Exam Comments Initial Comments: Is a well-developed asthenic appearing male who is awake alert oriented 3 Limitations: no limitations General appearance: alert, in no apparent distress Head exam: Present: atraumatic, normocephalic, normal inspection Eye exam: Present: normal appearance, PERRL, EOMI. Absent: scleral icterus, conjunctival injection, periorbital swelling ENT exam: Present: mucous membranes dry Neck exam: Present: normal inspection. Absent: tenderness, meningismus, lymphadenopathy Respiratory exam: Present: normal lung sounds bilaterally. Absent: respiratory distress, wheezes, rales, rhonchi, stridor Cardiovascular Exam: Present: normal rhythm, tachycardia, normal heart sounds. Absent: systolic murmur, diastolic murmur, rubs, gallop, clicks GI/Abdominal exam: Present: soft, normal bowel sounds. Absent: distended, tenderness, guarding, rebound, rigid Extremities exam: Present: normal inspection, full ROM, normal capillary refill. Absent: tenderness, pedal edema, joint swelling, calf tenderness Back exam: Present: normal inspection Neurological exam: Present: alert, oriented X3, CN II-XII intact Psychiatric exam: Present: normal affect, normal mood Skin exam: Present: warm, dry, intact, normal color. Absent: rash Course Vital Signs 09/29/19 09/29/19 08:11 09:12 Temperature 98.2 F Pulse Rate 112 H 98 Respiratory 16 16 Rate Blood Pressure 186/91 148/76 O2 Sat by Pulse 98 99 Oximetry - Reevaluation(s) Reevaluation #1: 09/29/19 10:40 Patient had a large bowel movement and felt much improved no pain at this time. Medical Decision Making - Medical Decision Making Patient is feeling much improved she'll be discharged she demonstrated evidence of constipation but did have a large bowel movement and feels improved he also demonstrate some dehydration he is encourage increase his oral fluids. He will be discharged did see no evidence of trauma - Lab Data Result diagrams: 09/29/19 08:22 09/29/19 08:22 Lab Results 09/29/19 09/29/19 09/29/19 Range/Units 08:22 08:22 08:36 WBC 11.3 H (3.8-10.6) k/uL RBC 4.48 (4.30-5.90) m/uL Hgb 13.2 (13.0-17.5) gm/dL Hct 40.5 (39.0-53.0) % MCV 90.3 (80.0-100.0) fL MCH 29.4 (25.0-35.0) pg MCHC 32.6 (31.0-37.0) g/dL RDW 12.9 (11.5-15.5) % Plt Count 412 (150-450) k/uL Neutrophils % 82 % Lymphocytes % 9 % Monocytes % 6 % Eosinophils % 1 % Basophils % 0 % Neutrophils # 9.2 H (1.3-7.7) k/uL Lymphocytes # 1.0 (1.0-4.8) k/uL Monocytes # 0.7 (0-1.0) k/uL Eosinophils # 0.1 (0-0.7) k/uL Basophils # 0.0 (0-0.2) k/uL Sodium 130 L (137-145) mmol/L Potassium 4.5 (3.5-5.1) mmol/L Chloride 89 L (98-107) mmol/L Carbon Dioxide 29 (22-30) mmol/L Anion Gap 12 mmol/L BUN 29 H (9-20) mg/dL Creatinine 1.32 H (0.66-1.25) mg/dL Est GFR (CKD-EPI)AfAm 57 (>60 ml/min/1.73 sqM) Est GFR (CKD-EPI)NonAf 49 (>60 ml/min/1.73 sqM) Glucose 112 H (74-99) mg/dL Calcium 9.8 (8.4-10.2) mg/dL Magnesium 2.1 (1.6-2.3) mg/dL Total Bilirubin 0.9 (0.2-1.3) mg/dL AST 31 (17-59) U/L ALT 14 (4-49) U/L Alkaline Phosphatase 79 (38-126) U/L Creatine Kinase 65 (55-170) U/L Total Protein 7.6 (6.3-8.2) g/dL Albumin 4.4 (3.5-5.0) g/dL Urine Color Yellow Urine Appearance Clear (Clear) Urine pH 6.5 (5.0-8.0) Ur Specific [employer] 1.014 (1.001-1.035) Urine Protein 1+ H (Negative) Urine Glucose (UA) Negative (Negative) Urine Ketones 1+ H (Negative) Urine Blood Small H (Negative) Urine Nitrite Negative (Negative) Urine Bilirubin Negative (Negative) Urine Urobilinogen <2.0 (<2.0) mg/dL Ur Leukocyte Esterase Negative (Negative) Urine RBC 15 H (0-5) /hpf Urine WBC 1 (0-5) /hpf Urine Mucus Rare H (None) /hpf - EKG Data -: EKG Interpreted by Me EKG Comments: Sinus tachycardia 111. Interval 134 QRS duration 82 QT since QTC 350/[address]-T wave changes - Radiology Data Radiology results: report reviewed (I did review the imaging and report no acute findings.), image reviewed Disposition Clinical Impression: Fall, Constipation, Dehydration Disposition: HOME SELF-CARE Condition: Good Instructions (If sedation given, give patient instructions): Constipation (ED), Dehydration (ED), Fall Prevention for Older Adults (ED) Additional Instructions: Increase oral fluid consumption Is patient prescribed a controlled substance at d/c from ED?: No Referrals: Corwin Leija DO [Primary Care Provider] - 1-2 days
[2019-09-29 10:48] VITALS: BP 174/95; PULSE 86
== END 2019-09-29 11:22 | disposition home or self-care (01) ==
LOC: EC 08:10
DX: K59.00 Constipation, unspecified (principal); E86.0 Dehydration; I12.9 Hypertensive chronic kidney disease with stage 1 through stage 4 chronic kidney disease, or unspecified chronic kidney disease; N18.3 Chronic kidney disease, stage 3 (moderate); Z79.899 Other long term (current) drug therapy; Z88.0 Allergy status to penicillin
CPT/HCPCS: 36415; 71046; 74018; 80053; 81001; 82550; 83735; 85025; 93005; 99284

== ENCOUNTER 2019-10-01 17:00 | Inpatient (IN) | payer MEDICARE ==
[2019-10-01] MEDS ORDERED: SODIUM CHLORIDE 0.9% 1,000 ML IV STA ×2 (17:27)
--- NOTE | 2019-10-01 17:33 | ED ---
Weakness HPI - General Chief complaint: Fall Stated complaint: Fall Time Seen by Provider: 10/01/19 17:19 Source: patient, RN notes reviewed, old records reviewed Mode of arrival: wheelchair Limitations: no limitations - History of Present Illness Initial comments: This is a 84-year-old male here for evaluation patient has severe weakness multiple recent falls. Patient himself does not feel well feels very weak back pain. There is mild headache neck pain. No leg pain difficulty ambulating. Patient is having severe pain currently. There is ER visits for falls lately. Patient states the fall today happened in the bathroom, was just a mechanical trip and fall with no prior chest pain or shortness of breath. At this date patient is complaining of pain from fall MD Complaint: generalized weakness, lack of energy, difficulty walking -: days(s) Location: generalized Severity: moderate Severity scale (1-10): 4 Quality: aching Consistency: constant Improves with: none Worsens with: none Context: history of similar Associated Symptoms: myalgias - Related Data Home Medications Medication Instructions Recorded Confirmed Multivit-Min/FA/Lycopene/Lut 1 tab PO DAILY 12/10/14 03/18/19 [Centrum Silver Tablet] Ascorbic Acid [Vitamin C] 1,000 mg PO DAILY 05/12/18 03/18/19 Calcium Carbonate/Vitamin D3 1 each PO DAILY 03/13/19 03/18/19 [Caltrate 600 Plus D3 Tablet] Midodrine [ProAmatine] 5 mg PO TID 03/13/19 03/18/19 Torsemide [Demadex] 5 mg PO DAILY 03/13/19 03/18/19 Previous Rx's Medication Instructions Recorded Budesonide-Formot 160-4.5 Mcg 2 puff INHALATION RT-BID #1 puff 12/14/14 [Symbicort 160-4.5 Mcg Inhaler] Allergies Allergy/AdvReac Type Severity Reaction Status Date / Time Penicillins Allergy Rash/Hives Verified 10/01/19 17:06 Review of Systems ROS Statement: Those systems with pertinent positive or pertinent negative responses have been documented in the HPI. ROS Other: All systems not noted in ROS Statement are negative. Past Medical History Past Medical History: Eye Disorder, Hypertension, Osteoarthritis (OA), Pneumonia, Renal Disease Additional Past Medical History / Comment(s): spouse states "having back pain poss hernia,"Lower GI bleed, peptic ulcer, gastritis, normocytic anemia, past pneumonia and pt states since then he has had "spots" on his lungs, CKD stage III, L eye small cataract. History of Any Multi-Drug Resistant Organisms: None Reported Past Surgical History: Adenoidectomy, Hernia Repair, Tonsillectomy Additional Past Surgical History / Comment(s): colonoscopies/egds, lt inguinal hernia Past Anesthesia/Blood Transfusion Reactions: No Reported Reaction Additional Past Anesthesia/Blood Transfusion Reaction / Comment(s): Pt states he has received blood in past without reaction. Past Psychological History: No Psychological Hx Reported Smoking Status: Never smoker - Past Family History Father Family Medical History: Chest Pain / Angina Additional Family Medical History / Comment(s): Father had heart disease. He lived till age 87 Mother Family Medical History: No Reported History Additional Family Medical History / Comment(s): Mother had heart disease. She lived till age 95 General Exam Limitations: no limitations General appearance: alert, in no apparent distress Head exam: Present: atraumatic, normocephalic, normal inspection Eye exam: Present: normal appearance, PERRL, EOMI. Absent: scleral icterus, conjunctival injection, periorbital swelling ENT exam: Present: normal exam, mucous membranes moist Neck exam: Present: normal inspection. Absent: tenderness, meningismus, lymphadenopathy Respiratory exam: Present: normal lung sounds bilaterally. Absent: respiratory distress, wheezes, rales, rhonchi, stridor Cardiovascular Exam: Present: regular rate, normal rhythm, normal heart sounds. Absent: systolic murmur, diastolic murmur, rubs, gallop, clicks GI/Abdominal exam: Present: soft, normal bowel sounds. Absent: distended, tenderness, guarding, rebound, rigid Extremities exam: Present: normal inspection, full ROM, normal capillary refill. Absent: tenderness, pedal edema, joint swelling, calf tenderness Back exam: Present: normal inspection, tenderness, paraspinal tenderness, vertebral tenderness (lumbar) Neurological exam: Present: alert, oriented X3, CN II-XII intact Psychiatric exam: Present: normal affect, normal mood Skin exam: Present: warm, dry, intact, normal color. Absent: rash Course Vital Signs 10/01/19 10/01/19 10/01/19 17:03 18:12 18:49 Temperature 97.8 F Pulse Rate 102 H 96 100 Respiratory 18 18 18 Rate Blood Pressure 184/103 190/102 176/104 O2 Sat by Pulse 98 100 100 Oximetry - Reevaluation(s) Reevaluation #1: 10/01/19 20:05 Medical records reviewed including to ER visits this week for falls Reevaluation #2: 10/01/19 20:05 Patient persisted back pain intractable back pain here in the ER on controlled blood pressure and uncontrolled pain Reevaluation #3: 10/01/19 20:05 Patient states the pain is severe he feels very weak and unable to ambulate - Consultations Consultation #1: spoke w DR Basilio re admission and is agreeable EKG Findings - EKG Comments: EKG Findings:: EKG shows sinus rhythm rate of 100, MO 180 qrs 84, QTC 477 Medical Decision Making - Medical Decision Making 84 male here for evaluation multiple falls and multiple recent falls subacute L1 endplate fracture and chronic intractable back pain. New-onset hypertension lumen for blood pressure control pain control and PT OT to evaluate - Lab Data Result diagrams: 10/01/19 18:03 10/01/19 18:03 Lab Results 10/01/19 10/01/19 10/01/19 Range/Units 17:37 18:03 18:03 WBC 9.6 (3.8-10.6) k/uL RBC 4.13 L (4.30-5.90) m/uL Hgb 12.1 L (13.0-17.5) gm/dL Hct 36.9 L (39.0-53.0) % MCV 89.5 (80.0-100.0) fL MCH 29.4 (25.0-35.0) pg MCHC 32.9 (31.0-37.0) g/dL RDW 12.8 (11.5-15.5) % Plt Count 490 H (150-450) k/uL Neutrophils % 78 % Lymphocytes % 11 % Monocytes % 7 % Eosinophils % 1 % Basophils % 0 % Neutrophils # 7.5 (1.3-7.7) k/uL Lymphocytes # 1.0 (1.0-4.8) k/uL Monocytes # 0.7 (0-1.0) k/uL Eosinophils # 0.1 (0-0.7) k/uL Basophils # 0.0 (0-0.2) k/uL PT 10.7 (9.0-12.0) sec INR 1.0 (<1.2) APTT 27.3 (22.0-30.0) sec Sodium (137-145) mmol/L Potassium (3.5-5.1) mmol/L Chloride (98-107) mmol/L Carbon Dioxide (22-30) mmol/L Anion Gap mmol/L BUN (9-20) mg/dL Creatinine (0.66-1.25) mg/dL Est GFR (CKD-EPI)AfAm (>60 ml/min/1.73 sqM) Est GFR (CKD-EPI)NonAf (>60 ml/min/1.73 sqM) Glucose (74-99) mg/dL Plasma Lactic Acid Turner (0.7-2.0) mmol/L Calcium (8.4-10.2) mg/dL Phosphorus (2.5-4.5) mg/dL Magnesium (1.6-2.3) mg/dL Total Bilirubin (0.2-1.3) mg/dL AST (17-59) U/L ALT (4-49) U/L Alkaline Phosphatase (38-126) U/L Troponin I (0.000-0.034) ng/mL Total Protein (6.3-8.2) g/dL Albumin (3.5-5.0) g/dL Urine Color Yellow Urine Appearance Clear (Clear) Urine pH 6.0 (5.0-8.0) Ur Specific [place] 1.030 (1.001-1.035) Urine Protein 2+ H (Negative) Urine Glucose (UA) Negative (Negative) Urine Ketones 1+ H (Negative) Urine Blood Moderate H (Negative) Urine Nitrite Negative (Negative) Urine Bilirubin Negative (Negative) Urine Urobilinogen 3.0 (<2.0) mg/dL Ur Leukocyte Esterase Negative (Negative) Urine RBC 47 H (0-5) /hpf Urine WBC 2 (0-5) /hpf Urine Mucus Occasional H (None) /hpf 10/01/19 10/01/19 10/01/19 Range/Units 18:03 18:03 18:03 WBC (3.8-10.6) k/uL RBC (4.30-5.90) m/uL Hgb (13.0-17.5) gm/dL Hct (39.0-53.0) % MCV (80.0-100.0) fL MCH (25.0-35.0) pg MCHC (31.0-37.0) g/dL RDW (11.5-15.5) % Plt Count (150-450) k/uL Neutrophils % % Lymphocytes % % Monocytes % % Eosinophils % % Basophils % % Neutrophils # (1.3-7.7) k/uL Lymphocytes # (1.0-4.8) k/uL Monocytes # (0-1.0) k/uL Eosinophils # (0-0.7) k/uL Basophils # (0-0.2) k/uL PT (9.0-12.0) sec INR (<1.2) APTT (22.0-30.0) sec Sodium 131 L (137-145) mmol/L Potassium 4.3 (3.5-5.1) mmol/L Chloride 91 L (98-107) mmol/L Carbon Dioxide 27 (22-30) mmol/L Anion Gap 13 mmol/L BUN 35 H (9-20) mg/dL Creatinine 1.27 H (0.66-1.25) mg/dL Est GFR (CKD-EPI)AfAm 59 (>60 ml/min/1.73 sqM) Est GFR (CKD-EPI)NonAf 51 (>60 ml/min/1.73 sqM) Glucose 116 H (74-99) mg/dL Plasma Lactic Acid Turner 1.5 (0.7-2.0) mmol/L Calcium 9.7 (8.4-10.2) mg/dL Phosphorus 2.8 (2.5-4.5) mg/dL Magnesium 2.3 (1.6-2.3) mg/dL Total Bilirubin 0.9 (0.2-1.3) mg/dL AST 37 (17-59) U/L ALT 16 (4-49) U/L Alkaline Phosphatase 86 (38-126) U/L Troponin I 0.015 (0.000-0.034) ng/mL Total Protein 7.8 (6.3-8.2) g/dL Albumin 4.4 (3.5-5.0) g/dL Urine Color Urine Appearance (Clear) Urine pH (5.0-8.0) Ur Specific [place] (1.001-1.035) Urine Protein (Negative) Urine Glucose (UA) (Negative) Urine Ketones (Negative) Urine Blood (Negative) Urine Nitrite (Negative) Urine Bilirubin (Negative) Urine Urobilinogen (<2.0) mg/dL Ur Leukocyte Esterase (Negative) Urine RBC (0-5) /hpf Urine WBC (0-5) /hpf Urine Mucus (None) /hpf - Radiology Data Radiology results: report reviewed (CT brain and C-spine and lumbar spine shows positive L1-L2 endplate fracture, subacute, chest and pelvis x-ray negative for traumatic injury), image reviewed Disposition Clinical Impression: Fall, Hypertension, Back pain, L1 vertebral fracture, Weakness, Intractable pain Disposition: ADMITTED IP TO THIS [facility] Condition: Fair Instructions (If sedation given, give patient instructions): Fall Prevention for Older Adults (ED) Is patient prescribed a controlled substance at d/c from ED?: No Referrals: Corwin Leija DO [Primary Care Provider] - 1-2 days
[2019-10-01 17:52] LABS: Appearance,Urine Clear (Clear); Bilirubin,Urine Negative (Negative); Blood,Urine Moderate (Negative); Color,Urine Yellow; Glucose,Urine (UA) Negative (Negative); Ketones,Urine 1+ (Negative); Leukocyte Esterase,Urine Negative (Negative); Mucus,Urine Occasional /hpf; Nitrite,Urine Negative (Negative); Protein,Urine 2+ (Negative); RBC,Urine 47 /hpf (0-5); WBC,Urine 2 /hpf (0-5)
[2019-10-01 18:21] LABS: Albumin 4.4 g/dL (3.5-5.0); Calcium 9.7 mg/dL (8.4-10.2); Magnesium 2.3 mg/dL (1.6-2.3); Phosphorus 2.8 mg/dL (2.5-4.5); Potassium 4.3 mmol/L (3.5-5.1); Total Bilirubin 0.9 mg/dL (0.2-1.3); Total Protein 7.8 g/dL (6.3-8.2)
[2019-10-01 18:27] LABS: Partial Thromboplastin Time 27.3 sec (22.0-30.0); Prothrombin Time 10.7 sec (9.0-12.0)
[2019-10-01 18:36] LABS: Basophils % (A) 0 %; Eosinophils # (A) 0.1 k/uL (0-0.7); Eosinophils % (A) 1 %; HCT 36.9 % (39.0-53.0); HGB 12.1 gm/dL (13.0-17.5); Lymphocytes % (A) 11 %; MCH 29.4 pg (25.0-35.0); MCHC 32.9 g/dL (31.0-37.0); MCV 89.5 fL (80.0-100.0); Mean Platelet Volume 7.1; Monocytes # (A) 0.7 k/uL (0-1.0); Monocytes % (A) 7 %; Neutrophils # (A) 7.5 k/uL (1.3-7.7); Neutrophils % (A) 78 %; Platelet Count 490 k/uL (150-450); RBC 4.13 m/uL (4.30-5.90); RDW 12.8 % (11.5-15.5); WBC 9.6 k/uL (3.8-10.6)
--- NOTE | 2019-10-01 19:03 | XR ---
EXAMINATION: XR chest 2V DATE AND TIME: 10/01/2019 5:57 PM CLINICAL INDICATION: PHH; Weakness TECHNIQUE: Departmental protocol COMPARISON: 09/29/2019 FINDINGS: The lungs are clear and well-expanded, except for redemonstrated coarsened reticular patter n throughout the lungs consistent with chronic interstitial lung change.. The pleural spaces are negative. The cardiac silhouette is not enlarged. The remainder of the mediastinal silhouette is unremarkable. The skeletal structures are negative for acute findings. Soft tissues are negative for acute findings. IMPRESSION: NO ACUTE PROCESS.
--- NOTE | 2019-10-01 19:05 | XR ---
PROCEDURE: XR pelvis AP view - 2V DATE AND TIME: 10/01/2019 5:57 PM CLINICAL INDICATION: PHH; fall TECHNIQUE: Department protocol COMPARISON: None FINDINGS: There is no fracture or malalignment. The soft tissues are unremarkable. IMPRESSION: NO ACUTE PROCESS.
--- NOTE | 2019-10-01 19:20 | CT ---
EXAMINATION TYPE: CT brain cspine wo con DATE OF EXAM: 10/01/2019 COMPARISON: 09/28/2019 HISTORY: Fall. CT DLP: 1298.4. mGycm Automated exposure control for dose reduction was used. TECHNIQUE: CT scan of the head and cervical spine are performed without contrast. FINDINGS: There is no acute intracranial hemorrhage, mass effect, or midline shift identified. No d efinite new attenuation defect. The ventricles and sulci are within normal limits in size. The globe s are intact and the visualized sinuses are clear. Cervical spine is visualized in its entirety from C1 through upper thoracic levels and demonstrates s atisfactory alignment without evidence of acute fracture or dislocation. Prevertebral soft tissue ap pears within normal limits. The C1-C2 articulation is unremarkable. IMPRESSION: 1. There is no acute fracture or dislocation evident in the cervical spine. 2. No acute intracranial hemorrhage, mass effect, or midline shift is seen.
--- NOTE | 2019-10-01 19:27 | CT ---
EXAMINATION TYPE: CT lumbar spine wo con DATE OF EXAM: 10/01/2019 5:52 PM COMPARISON: HISTORY: Fall, low back pain. CT DLP: 652.9 mGycm Automated exposure control for dose reduction was used. Unenhanced CT of the lumbar spine was performed. Bone and soft tissue window settings are submitted as well as coronal and sagittal reconstructions. FINDINGS: There is no paraspinal soft tissue swelling to suggest hemorrhage. There is wedging of the L1 vertebral body due to an superior endplate compression, but this appears to be remote by CT criter ia. Similarly, the superior endplate of L3 is decompressed but it appears chronic by CT criteria. *However, it is noted that MRI is more sensitive for acute/subacute chronology than CT. There is no spinal malalignment. There are multilevel degenerative disc and facet changes which appea r to be most pronounced at the L3-4 and L4-5 levels, followed by L2 level. At these 3 levels. The deg enerative disc and facet changes at these levels account for the appearance of the bilateral lateral recess stenosis. No incidental acute findings. IMPRESSION: L1 and L3 superior endplate compressions noted, but these are unlikely to be acute by CT criteria.
[2019-10-01] MEDS ORDERED: hydrALAZINE HCL 20 MG/ML 1 ML VIAL IVP PRN (20:03)
[2019-10-01] MEDS ORDERED: SODIUM CHLORIDE 0.9% 1,000 ML IV ONE (20:03)
[2019-10-01] MEDS ORDERED: KETOROLAC 30 MG/ML 1 ML VIAL IVP STA (20:03)
[2019-10-01] MEDS ORDERED: MORPHINE SULFATE 4 MG/ML SYRINGE IVP PRN (20:03)
[2019-10-01] MEDS ORDERED: MORPHINE SULFATE 4 MG/ML SYRINGE IVP STA (20:03)
[2019-10-02] MEDS: LIDOCAINE 5% PATCH TOPICAL SCH (12:29)
[2019-10-02 16:50] VITALS: BMI 18.6
[2019-10-02] MEDS ORDERED: POLYETHYLENE GLYCOL 3350 17 GM POWD.PACK PO PRN (17:44)
[2019-10-02] MEDS ORDERED: traMADol 50 MG TAB PO PRN (17:44)
[2019-10-02] MEDS ORDERED: MIDODRINE 5 MG TAB PO SCH (17:45)
--- NOTE | 2019-10-02 17:59 | P.HPIM ---
History of Present Illness H&P Date: 10/02/19 Chief Complaint: Falls History of presenting complaint: This is a pleasant 84-year-old patient of Dr. Leija. Chronic stable medical conditions include hypertension, Shira arthritis, peptic ulcer disease, CK stage III. Patient been having episodes of getting dizzy. Especially happens when he gets up. In obvious to stand a bee sting for about a minute before he gets ab out. Appetite is gone down. Also finds it difficult to get up from a chair or a potty chair. [facility]. Does use a cane. Denies any fever and chills. No focal neurological symptoms. Review of systems: GEN.: Tired decreased appetite EYES: None HEENT: Decreased hearing NECK: None RESPIRATORY: None CARDIOVASCULAR: None GASTROINTESTINAL: None GENITOURINARY: None MUSCULOSKELETAL: Joint pains LYMPHATICS: None HEMATOLOGICAL: None PSYCHIATRY: Bit forgetful NEUROLOGICAL: None Past medical history to include: Hypertension, Shira arthritis, peptic ulcer, normocytic anemia, chronic kidney disease stage III, tricuspid regurgitation Social history: Does not smoke or drink alcohol. Does use a cane. Lives of [facility] Physical examination: VITAL SIGNS: 97.8, 102, 18, 184/103, 98% on room air GENERAL: BMI 18.6, laying in bed, awake not in distress. EYES: Pupils equal. Conjunctiva normal. HEENT: External appearance of nose and ears normal, oral cavity grossly normal. NECK: JVD not raised; masses not palpable. HEART: First and second heart sounds are normal; no edema. LUNGS: Respiratory rate normal; clear to auscultation. ABDOMEN: Soft, nontender, liver spleen not palpable, no masses palpable. PSYCH: Answering questions appropriatelyl. MUSCULOSKELETAL: Loss of subcutaneous fat and prominent bony prominences NEUROLOGICAL: Cranial nerves grossly intact; no facial asymmetry, power and sensation grossly intact. LYMPHATICS: No lymph nodes palpable in the axilla and neck INVESTIGATIONS, reviewed in the clinical context: White count 9.6 hemoglobin 12.1 platelets 490 potassium 4.3 bun 35 creatinine 1.27 EKG tracing personally reviewed by me-no sinus rhythm Chest x-ray, computed tomography scan of the cervical spine, pelvis x-ray,- negative for fracture Lumbar computed tomography scan-L1 L3 compression fracture felt to be chronic Assessment: -Suspect orthostatic hypertension given that patient gets dizzy when he stands up and has to stand for quite a few seconds before he can get about. 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 Bony prominences -L1-L3 subacute compression fracture secondary to fall -Chronic kidney disease stage III possibly from nephrosclerosis Plan: Patient started on IV fluids. Lidoderm patch for lower lumbar spine. Home medications to continue. PTOT of the case. Keep eye on her blood pressure. Check orthostatics. Check renal ultrasound. Lovenox for DVT prophylaxis. Past Medical History Past Medical History: Eye Disorder, Hypertension, Osteoarthritis (OA), Pneumonia, Renal Disease Additional Past Medical History / Comment(s): spouse states "having back pain poss hernia,"Lower GI bleed, peptic ulcer, gastritis, normocytic anemia, past pneumonia and pt states since then he has had "spots" on his lungs, CKD stage III, L eye small cataract. History of Any Multi-Drug Resistant Organisms: None Reported Past Surgical History: Adenoidectomy, Hernia Repair, Tonsillectomy Additional Past Surgical History / Comment(s): colonoscopies/egds, lt inguinal hernia Past Anesthesia/Blood Transfusion Reactions: No Reported Reaction Additional Past Anesthesia/Blood Transfusion Reaction / Comment(s): Pt states he has received blood in past without reaction. Past Psychological History: No Psychological Hx Reported Additional Psychological History / Comment(s): Pt states he and his spouse moved into [employer] one week ago. He uses no assistive device. He drives. Pt has a nebulizer. Smoking Status: Never smoker Past Alcohol Use History: None Reported Past Drug Use History: None Reported - Past Family History Father Family Medical History: Chest Pain / Angina Additional Family Medical History / Comment(s): Father had heart disease. He lived till age 87 Mother Family Medical History: No Reported History Additional Family Medical History / Comment(s): Mother had heart disease. She lived till age 95 Medications and Allergies Home Medications Medication Instructions Recorded Confirmed Type Multivit-Min/FA/Lycopene/Lut 1 tab PO DAILY 12/10/14 10/01/19 History [Centrum Silver Tablet] Ascorbic Acid [Vitamin C] 1,000 mg PO DAILY 05/12/18 10/01/19 History Calcium Carbonate/Vitamin D3 1 tab PO DAILY 03/13/19 10/01/19 History [Caltrate 600 Plus D3 Tablet] Midodrine [ProAmatine] 5 mg PO TID 03/13/19 10/01/19 History Torsemide [Demadex] 5 mg PO DAILY 03/13/19 10/01/19 History Fluticasone Nasal [place] [Flonase 1 spray EA NOSTRIL BID 10/01/19 10/01/19 History Nasal [place]] Polyethylene Glycol 3350 [Miralax] 17 gm PO DAILY PRN 10/01/19 10/01/19 History traMADol HCL 50 mg PO BID PRN 10/01/19 10/01/19 History Allergies Allergy/AdvReac Type Severity Reaction Status Date / Time Penicillins Allergy Rash/Hives Verified 10/01/19 17:06 Physical Exam Vitals: Vital Signs Temp Pulse Pulse Resp BP BP Pulse Ox 10/02/19 08:21 98 10/02/19 07:58 97.8 F 98 17 144/73 98 10/02/19 02:15 97.9 F 89 14 132/78 98 10/01/19 20:54 97.9 F 98 14 176/81 96 10/01/19 20:20 97.3 F L 99 18 165/97 100 10/01/19 18:49 100 18 176/104 100 10/01/19 18:12 96 18 190/102 100 10/01/19 17:03 97.8 F 102 H 18 184/103 98 Intake and Output 10/01/19 10/02/19 10/02/19 22:59 06:59 14:59 Intake Total 50 180 Output Total 400 Balance 50 -400 180 Intake: Oral 50 180 Output: Urine 400 Other: Weight 52.163 kg Results CBC & Chem 7: 10/01/19 18:03 10/01/19 18:03 Labs: Abnormal Lab Results - Last 24 Hours (Table) 10/01/19 10/01/19 10/01/19 Range/Units 17:37 18:03 18:03 RBC 4.13 L (4.30-5.90) m/uL Hgb 12.1 L (13.0-17.5) gm/dL Hct 36.9 L (39.0-53.0) % Plt Count 490 H (150-450) k/uL Sodium 131 L (137-145) mmol/L Chloride 91 L (98-107) mmol/L BUN 35 H (9-20) mg/dL Creatinine 1.27 H (0.66-1.25) mg/dL Glucose 116 H (74-99) mg/dL Urine Protein 2+ H (Negative) Urine Ketones 1+ H (Negative) Urine Blood Moderate H (Negative) Urine RBC 47 H (0-5) /hpf Urine Mucus Occasional H (None) /hpf Thrombosis Risk Factor Assmnt - Choose All That Apply Each Risk Factor Represents 3 Points: Age 75 years or older Thrombosis Risk Factor Assessment Total Risk Factor Score: 3 Thrombosis Risk Factor Assessment Level: Moderate Risk
[2019-10-02] MEDS: MIDODRINE 5 MG TAB PO SCH (18:30)
[2019-10-02] MEDS: LACTATED RINGERS 1,000 ML IV SCH (18:30)
[2019-10-02] MEDS: ENOXAPARIN 40 MG/0.4 ML SYRINGE SQ SCH (18:30)
--- NOTE | 2019-10-02 21:05 | US ---
EXAMINATION TYPE: US kidneys/renal and bladder DATE OF EXAM: 10/02/2019 COMPARISON: US,CT CLINICAL HISTORY: eval chronic kidney disease. EXAM MEASUREMENTS: Right Kidney: 9.6 x 4.7 x 3.9 cm Left Kidney: 7.0 x 2.9 x 3.3 cm Post Void Residual Volume: Not assessed on inpatient US exam is technically limited by decreased patient mobility. Right Kidney: No hydronephrosis or masses seen; small amount of ascites is noted at the hepatorenal r ecess. Left Kidney: small for size and as compared to right kidney Bladder: wnl Bilateral Jets seen: no, only small left ureteral jet was seen after 3 minutes of observation There is no evidence for hydronephrosis at this point in time. No nephrolithiasis is seen. No charleen s are identified. The urinary bladder is anechoic. IMPRESSION: Left renal atrophy. No hydronephrosis. No evidence of a renal mass. Mild ascites.
[2019-10-03] MEDS: LACTATED RINGERS 1,000 ML IV SCH ×2 (01:45→10:33)
[2019-10-03] MEDS: MIDODRINE 5 MG TAB PO SCH ×3 (07:46→15:13)
[2019-10-03 07:47] LABS: Calcium 8.6 mg/dL (8.4-10.2); Potassium 3.8 mmol/L (3.5-5.1)
[2019-10-03] MEDS: MULTIVITAMINS, THERA 1 EACH TAB PO SCH (08:25)
[2019-10-03] MEDS: ENOXAPARIN 40 MG/0.4 ML SYRINGE SQ SCH (08:25)
[2019-10-03] MEDS: LIDOCAINE 5% PATCH TOPICAL SCH (08:26)
--- NOTE | 2019-10-03 17:33 | P.PN ---
Progress Note - Text Progress Note Date: 10/03/19 Chief Complaint: Falls History of presenting complaint: This is a pleasant 84-year-old patient of Dr. Leija. Chronic stable medical conditions include hypertension, osteoarthritis, peptic ulcer disease, CK stage III. Patient been having episodes of getting dizzy. Especially happens when he gets up. In obvious to stand a bee sting for about a minute before he gets about. Appetite is gone down. Also finds it difficult to get up from a chair or a potty chair. Patient is a resident of [facility]. Does use a cane. Denies any fever and chills. No focal neurological symptoms. Admitted with orthostatic-acute kidney injury Today-feeling better. Getting IV fluids. Oral intake improved. Review of systems: Was done for constitutional, cardiovascular, GI, pulmonary. relevant finding as above Active Medications Enoxaparin Sodium (Lovenox) 40 mg SQ DAILY [facility] Last Admin: 10/03/19 08:25 Dose: 40 mg Documented by: Hydralazine HCl (Apresoline) 10 mg IVP Q4HR PRN PRN Reason: Blood Pressure - High Lidocaine (Lidoderm) 1 patch TOPICAL DAILY [facility] Last Admin: 10/03/19 08:26 Dose: 1 patch Documented by: Midodrine (Proamatine) 5 mg PO AC-TID [facility] Last Admin: 10/03/19 15:13 Dose: Not Given Documented by: Multivitamins (Theragran) 1 each PO DAILY [facility] Last Admin: 10/03/19 08:25 Dose: 1 each Documented by: Polyethylene Glycol (Miralax) 17 gm PO DAILY PRN PRN Reason: Constipation Tramadol HCl (Ultram) 50 mg PO BID PRN PRN Reason: Pain Physical examination: VITAL SIGNS: 97.7, 96, 18, blood pressure standing 134/87, blood pressure lying down 170/84 GENERAL: Sitting vaginal bed. EYES: Pupils equal. Conjunctiva normal. HEENT: External appearance of nose and ears normal, oral cavity grossly normal. NECK: JVD not raised; masses not palpable. HEART: First and second heart sounds are normal; no edema. LUNGS: Respiratory rate normal; clear to auscultation. ABDOMEN: Soft, nontender, liver spleen not palpable, no masses palpable. PSYCH: Answering questions appropriatelyl. MUSCULOSKELETAL: Loss of subcutaneous fat and prominent bony prominences INVESTIGATIONS, reviewed in the clinical context: Sodium 149 potassium 3.8 creatinine 0.98 Previous testing White count 9.6 hemoglobin 12.1 platelets 490 potassium 4.3 bun 35 creatinine 1.27 EKG tracing personally reviewed by me-no sinus rhythm Chest x-ray, computed tomography scan of the cervical spine, pelvis x-ray,-negative for fracture Lumbar computed tomography scan-L1 L3 compression fracture felt to be chronic Assessment: -orthostatic hypertension from fluid deficit -Acute kidney injury-prerenal, improved with -Hypertensive urgency -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 Bony prominences -L1-L3 subacute compression fracture secondary to fall -Chronic kidney disease stage III possibly from nephrosclerosis Plan: DC IV fluids. Give BIJU stockings. Discussed with the patient. If continues to improve discharged tomorrow.
[2019-10-03] MEDS ORDERED: LACTATED RINGERS 1,000 ML IV SCH (17:45)
[2019-10-04 07:32] LABS: Potassium 3.4 mmol/L (3.5-5.1)
[2019-10-04 07:53] VITALS: RESP 16; TEMP 97.6
[2019-10-04] MEDS: MIDODRINE 5 MG TAB PO SCH ×2 (08:03→14:26)
[2019-10-04] MEDS: ENOXAPARIN 40 MG/0.4 ML SYRINGE SQ SCH (08:52)
[2019-10-04] MEDS: MULTIVITAMINS, THERA 1 EACH TAB PO SCH (08:52)
[2019-10-04] MEDS: LIDOCAINE 5% PATCH TOPICAL SCH (08:52)
[2019-10-04] MEDS ORDERED: POTASSIUM CHLORIDE ER 20 MEQ TAB.ER PO STA (11:45)
[2019-10-04] MEDS ORDERED: cloNIDine HCL 0.1 MG TAB PO STA (11:50)
[2019-10-04 15:28] VITALS: BP 131/71; PULSE 93
--- NOTE | 2019-10-04 21:27 | P.DS ---
Providers Date of admission: 10/01/19 20:05 Expected date of discharge: 10/04/19 Attending physician: Kj Basilio Primary care physician: Corwin Leija [facility] Course: Chief Complaint: Falls History of presenting complaint: This is a pleasant 84-year-old patient of Dr. Leija. Chronic stable medical conditions include hypertension, osteoarthritis, peptic ulcer disease, CK stage III. Patient been having episodes of getting dizzy. Especially happens when he gets up. In obvious to stand a bee sting for about a minute before he gets about. Appetite is gone down. Also finds it difficult to get up from a chair or a potty chair. Patient is a resident of [facility]. Does use a cane. Denies any fever and chills. No focal neurological symptoms. Admitted with orthostatic hypertension-felt to both neurogenic and non- neurogenic cause. Acute kidney injury felt to be responsible for the nonneurogenic cause. Creatinine did improve from 1.27 down to 0.91 and bun didn't improve from 35 down to 15. After getting IV fluids blood pressure had gone up. Did add Catapres. Midodrine to continue for the neurogenic component Today-Catapres started today. Care was discussed in detail with the patient. Questions were answered. Not much benefit from lidocaine patch. It is only present when he moves. Has discontinued. He has a brace at home he does not like to use it. Discussion and discharge planning more than 35 minutes Physical examination: VITAL SIGNS: 97.6, 94, 16, 131/71 GENERAL: Sitting up, comfortable EYES: Pupils equal. Conjunctiva normal. HEENT: External appearance of nose and ears normal, oral cavity grossly normal. NECK: JVD not raised; masses not palpable. HEART: First and second heart sounds are normal; no edema. LUNGS: Respiratory rate normal; clear to auscultation. ABDOMEN: Soft, nontender, liver spleen not palpable, no masses palpable. PSYCH: Answering questions appropriatelyl. MUSCULOSKELETAL: Loss of subcutaneous fat and prominent bony prominences INVESTIGATIONS, reviewed in the clinical context: Sodium 149 potassium 3.8 creatinine 0.98 Previous testing White count 9.6 hemoglobin 12.1 platelets 490 potassium 4.3 bun 35 creatinine 1.27 EKG tracing personally reviewed by me-no sinus rhythm Chest x-ray, computed tomography scan of the cervical spine, pelvis x-ray,-negative for fracture Lumbar computed tomography scan-L1 L3 compression fracture felt to be chronic Assessment: -orthostatic hypertension from fluid deficit-none neurogenic cause, and also autonomic dysfunction, POA -Acute kidney injury-prerenal, POA -Hypertensive urgency -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 Bony prominences -L1-L3 subacute compression fracture secondary to fall -No chronic kidney disease present Disposition: [facility] Patient Condition at Discharge: Stable Plan - Discharge Summary Discharge Rx Participant: Yes New Discharge Prescriptions: New cloNIDine HCL [Catapres] 0.1 mg PO BID #60 tab Continue Multivit-Min/FA/Lycopene/Lut [Centrum Silver Tablet] 1 tab PO DAILY Ascorbic Acid [Vitamin C] 1,000 mg PO DAILY Midodrine [ProAmatine] 5 mg PO TID Calcium Carbonate/Vitamin D3 [Caltrate 600 Plus D3 Tablet] 1 tab PO DAILY traMADol HCL 50 mg PO BID PRN PRN Reason: Pain Polyethylene Glycol 3350 [Miralax] 17 gm PO DAILY PRN PRN Reason: Constipation Discontinued Torsemide [Demadex] 5 mg PO DAILY Fluticasone Nasal [place] [Flonase Nasal [place]] 1 spray EA NOSTRIL BID Discharge Medication List Multivit-Min/FA/Lycopene/Lut [Centrum Silver Tablet] 1 tab PO DAILY 12/10/14 [History] Ascorbic Acid [Vitamin C] 1,000 mg PO DAILY 05/12/18 [History] Calcium Carbonate/Vitamin D3 [Caltrate 600 Plus D3 Tablet] 1 tab PO DAILY 03/13/19 [History] Midodrine [ProAmatine] 5 mg PO TID 03/13/19 [History] Polyethylene Glycol 3350 [Miralax] 17 gm PO DAILY PRN 10/01/19 [History] traMADol HCL 50 mg PO BID PRN 10/01/19 [History] cloNIDine HCL [Catapres] 0.1 mg PO BID #60 tab 10/04/19 [Rx] Follow up Appointment(s)/Referral(s): Corwin Leija DO [Primary Care Provider] - 1-2 days (office closed please call to make appointment) [facility] [NON-STAFF] - Patient Instructions/Handouts: Fall Prevention for Older Adults (ED) Activity/Diet/Wound Care/Special Instructions: Rollator will be delivered to patient's bedside prior to discharge by [facility] Discharge Disposition: HOME SELF-CARE
== END 2019-10-04 15:37 | disposition home or self-care (01) | DRG 683 ==
LOC: EC 17:00 → 4SSUR 20:05
PROVIDERS: ADMIT Hospitalist; ATTEND Hospitalist
DX: N17.9 Acute kidney failure, unspecified (principal); G90.3 Multi-system degeneration of the autonomic nervous system; S32.019A Unspecified fracture of first lumbar vertebra, initial encounter for closed fracture; E44.0 Moderate protein-calorie malnutrition; Z68.1 Body mass index [BMI] 19.9 or less, adult; G90.9 Disorder of the autonomic nervous system, unspecified; I12.9 Hypertensive chronic kidney disease with stage 1 through stage 4 chronic kidney disease, or unspecified chronic kidney disease; I16.0 Hypertensive urgency; K27.9 Peptic ulcer, site unspecified, unspecified as acute or chronic, without hemorrhage or perforation; M19.90 Unspecified osteoarthritis, unspecified site; N18.3 Chronic kidney disease, stage 3 (moderate); R29.6 Repeated falls; Z91.81 History of falling; W01.0XXA Fall on same level from slipping, tripping and stumbling without subsequent striking against object, initial encounter; Y92.002 Bathroom of unspecified non-institutional (private) residence as the place of occurrence of the external cause; Z79.51 Long term (current) use of inhaled steroids; Z79.899 Other long term (current) drug therapy; Z82.49 Family history of ischemic heart disease and other diseases of the circulatory system; G72.9 Myopathy, unspecified; Z88.0 Allergy status to penicillin; H26.9 Unspecified cataract; Z87.01 Personal history of pneumonia (recurrent); I07.1 Rheumatic tricuspid insufficiency
CPT/HCPCS: 36415; 70450; 71046; 72125; 72131; 72170; 76770; 80048; 80053; 81001; 83605; 83735; 84100; 84484; 85025; 85610; 85730; 93005; 94760; 96361; 96374; 96375; 99285

== ENCOUNTER 2019-12-21 15:54 | Emergency (ER) | payer MEDICARE ==
[2019-12-21 16:28] VITALS: RESP 20
--- NOTE | 2019-12-21 17:08 | CT ---
EXAMINATION TYPE: CT brain sarmadine wo con DATE OF EXAM: 12/21/2019 COMPARISON: 10/01/2019 HISTORY: Fall injury Headache. Neck pain. CT DLP: 1276 mGycm Automated exposure control for dose reduction was used. There is cerebral cortical atrophy. There is patchy hypodensity in the periventricular white matter. There is no mass effect nor midline shift. There is no sign of intracranial hemorrhage. The calvarium is intact. Skull base is intact. There is occipital scalp soft tissue swelling. There is opacification of the left side sphenoid sinus without evidence of bone destruction. Cervical vertebra have fairly normal alignment. There is accentuated lordotic curvature. There is deg enerative disc space narrowing at C5-6 C6-7 with spurring. Facet joints are intact. The skull base is intact. IMPRESSION: Cerebral atrophy and chronic small vessel ischemia unchanged. No acute intracranial abnormality. Occi pital scalp soft tissue swelling. Spondylotic changes in the cervical spine. No fracture seen. Left side sphenoid sinusitis increased compared to last exam.
--- NOTE | 2019-12-21 17:51 | ED ---
Fall HPI - General Chief Complaint: Fall Stated Complaint: Fall Time Seen by Provider: 12/21/19 16:03 Source: patient, EMS Mode of arrival: EMS - History of Present Illness Initial Comments: 84-year-old male presenting to fall. Patient states he was attempting to get off the toilet when he lost his balance falling backwards striking his head. Patient denies loss of consciousness he denies any use of anticoagulation therapy. Patient states that he did not have a syncopal episode he denies a chest pain dizziness prior to falling states he simply misstepped. Patient states he has no current complaints aside from pain when he hit his head. Patient denies any headache nausea vomiting visual changes because of the upper or lower extremities he has any injury of the upper extremities or lower extremity size any back or neck pain. Patient called EMS as a connective the bleeding to stop who transferred patient to the emergency department for further evaluation. - Related Data Home Medications Medication Instructions Recorded Confirmed Multivit-Min/FA/Lycopene/Lut 1 tab PO DAILY 12/10/14 12/21/19 [Centrum Silver Tablet] Ascorbic Acid [Vitamin C] 1,000 mg PO DAILY 05/12/18 12/21/19 Calcium Carbonate/Vitamin D3 1 tab PO DAILY 03/13/19 12/21/19 [Caltrate 600 Plus D3 Tablet] Midodrine [ProAmatine] 5 mg PO TID 03/13/19 12/21/19 Polyethylene Glycol 3350 [Miralax] 17 gm PO DAILY PRN 10/01/19 12/21/19 traMADol HCL 50 mg PO BID PRN 10/01/19 12/21/19 Previous Rx's Medication Instructions Recorded cloNIDine HCL [Catapres] 0.1 mg PO BID #60 tab 10/04/19 Allergies Allergy/AdvReac Type Severity Reaction Status Date / Time Penicillins Allergy Rash/Hives Verified 12/21/19 16:28 Review of Systems ROS Statement: Those systems with pertinent positive or pertinent negative responses have been documented in the HPI. ROS Other: All systems not noted in ROS Statement are negative. Past Medical History Past Medical History: Eye Disorder, Hypertension, Osteoarthritis (OA), Pneumonia, Renal Disease Additional Past Medical History / Comment(s): spouse states "having back pain poss hernia,"Lower GI bleed, peptic ulcer, gastritis, normocytic anemia, past pneumonia and pt states since then he has had "spots" on his lungs, CKD stage III, L eye small cataract. History of Any Multi-Drug Resistant Organisms: None Reported Past Surgical History: Adenoidectomy, Hernia Repair, Tonsillectomy Additional Past Surgical History / Comment(s): colonoscopies/egds, lt inguinal hernia Past Anesthesia/Blood Transfusion Reactions: No Reported Reaction Additional Past Anesthesia/Blood Transfusion Reaction / Comment(s): Pt states he has received blood in past without reaction. Past Psychological History: No Psychological Hx Reported Smoking Status: Never smoker Past Alcohol Use History: None Reported Past Drug Use History: None Reported - Past Family History Father Family Medical History: Chest Pain / Angina Additional Family Medical History / Comment(s): Father had heart disease. He lived till age 87 Mother Family Medical History: No Reported History Additional Family Medical History / Comment(s): Mother had heart disease. She lived till age 95 General Exam - General Exam Comments Initial Comments: General: The patient is awake and alert, in no distress Eye: +3 mm pupils are equal, round and reactive to light, extra-ocular movements are intact. No nystagmus. There is normal conjunctiva bilaterally. No signs of icterus. Ears, nose, mouth and throat: There are moist mucous membranes and no oral lesions. No raccoon or Carmona sign. Neck: The neck is supple, there is no tenderness or JVD. Cardiovascular: There is a regular rate and rhythm. No murmur, rub or gallop is appreciated. Respiratory: Lungs are clear to auscultation, respirations are non-labored, breath sounds are equal. No wheezes, stridor, rales, or rhonchi. Gastrointestinal: Soft, non-distended, non-tender abdomen without masses or organomegaly noted. There is no rebound or guarding present. Musculoskeletal: Normal ROM, no tenderness. Strength 5/5. Sensation intact. Pulses equal bilaterally 2+. Able to weight bear and ambulate Neurological: A&O x 3. CN II-XII intact, There are no obvious motor or sensory deficits. Coordination appears grossly intact. Speech is normal. Skin: Skin is warm and dry and no rashes. 1.5 cm laceration of the occipital region of the scalp more right-sided, noted hematoma no crepitus to palpation. No sunken appearance Psychiatric: Cooperative, appropriate mood & affect, normal judgment. Limitations: no limitations Course Vital Signs 12/21/19 12/21/19 16:05 18:10 Temperature 98.4 F 98.1 F Pulse Rate 84 88 Respiratory 20 20 Rate Blood Pressure 168/95 158/76 O2 Sat by Pulse 96 99 Oximetry Procedures - Laceration Laceration #1 Consent Obtained: verbal consent Indication: laceration Site: scalp Size (cm): 1 (Actual 1.5) Description: linear Depth: simple, single layer Pre-repair: wound explored, irrigated extensively, deep structures intact Type of Sutures: other (Stable) Size of Sutures: other (Staple) Patient Tolerated Procedure: well, no complications Medical Decision Making - Medical Decision Making 84-year-old male presents today for chief complaint of mechanical fall. Lacerations to the back of the head as well as soft tissue hematoma. Patient is no focal neurological deficits and is ambulatory. Patient is placed in c- collar upon arrival. CT brain and C-spine without acute process. C-collar removed no midline tenderness patient the cervical spine full range of motion without significant pain. No weakness of the upper extremities. Patient laceration repaired with 2 jhoan. Discussed staple removal (7days). Patient has no other complaints discuss case Motrin provided Dr. Kulkarni was agreeable to Plan discharge at this time. Disposition Clinical Impression: Fall, Head injury, Laceration of head Disposition: HOME SELF-CARE Condition: Good Instructions (If sedation given, give patient instructions): Laceration (ED), Fall Prevention for Older Adults (ED), Staple Care (ED) Is patient prescribed a controlled substance at d/c from ED?: No Referrals: Corwin Leija DO [Primary Care Provider] - 1-2 days Time of Disposition: 17:51
[2019-12-21 18:21] VITALS: BP 158/76; PULSE 88; TEMP 98.1
== END 2019-12-21 18:10 | disposition home or self-care (01) ==
LOC: EC 15:54
DX: S01.01XA Laceration without foreign body of scalp, initial encounter (principal); Z79.899 Other long term (current) drug therapy; Z88.0 Allergy status to penicillin; W18.12XA Fall from or off toilet with subsequent striking against object, initial encounter; Y92.002 Bathroom of unspecified non-institutional (private) residence as the place of occurrence of the external cause
CPT/HCPCS: 12001; 70450; 72125; 99284

== ENCOUNTER → 2020-01-20 | Outpatient (CLI) | payer MEDICARE ==
[2020-01-20 14:56] LABS: HCT 34.2 % (39.0-53.0); HGB 10.6 gm/dL (13.0-17.5); Hypochromasia Moderate; MCH 28.8 pg (25.0-35.0); MCHC 31.1 g/dL (31.0-37.0); MCV 92.7 fL (80.0-100.0); Mean Platelet Volume 6.7; Platelet Count 508 k/uL (150-450); RBC 3.69 m/uL (4.30-5.90); RDW 13.3 % (11.5-15.5); WBC 10.8 k/uL (3.8-10.6)
[2020-01-20 15:00] LABS: Appearance,Urine Clear (Clear); Bilirubin,Urine Negative (Negative); Blood,Urine Negative (Negative); Color,Urine Yellow; Glucose,Urine (UA) Negative (Negative); Ketones,Urine Negative (Negative); Leukocyte Esterase,Urine Negative (Negative); Nitrite,Urine Negative (Negative); Protein,Urine Trace (Negative); Specific Gravity,Urine 1.021 (1.001-1.035)
[2020-01-20 21:43] LABS: % Iron Saturation 8.72 (15.00-50.00); African American GFR (CKD) 57.3 (60.0-200.0); Albumin 3.9 g/dL (3.80-4.90); Albumin/Globulin Ratio 1.63 (1.60-3.17); Anion Gap 9.7 mmol/L (4.00-12.00); BUN/Creat Ratio 17.69 Ratio (12.00-20.00); Calcium 9.1 mg/dL (8.7-10.3); Carbon Dioxide 29.3 mmol/L (21.6-31.8); Ferritin 1182.4 ng/mL (22.0-322.0); Globulin 2.4 g/dL (1.6-3.3); Magnesium 1.9 mg/dL (1.5-2.4); Non-African American GFR(CKD) 49.4 (60.0-200.0); Phosphorus 3.4 mg/dL (2.4-5.1); Potassium 4.8 mmol/L (3.5-5.5); Total Bilirubin 0.5 mg/dL (0.3-1.2); Total Protein 6.3 g/dL (6.2-8.2); Uric Acid 4.5 mg/dL (3.7-8.7)
== END | disposition home or self-care (01) ==
LOC: LABWHC1 14:13
PROVIDERS: ATTEND Internal Medicine
DX: N39.0 Urinary tract infection, site not specified (principal); N25.81 Secondary hyperparathyroidism of renal origin; E55.9 Vitamin D deficiency, unspecified; D63.1 Anemia in chronic kidney disease; N18.3 Chronic kidney disease, stage 3 (moderate)
CPT/HCPCS: 36415; 80053; 81003; 82306; 82728; 83540; 83550; 83735; 83970; 84100; 84550; 85027

== ENCOUNTER 2020-02-23 16:31 | Inpatient (IN) | payer MEDICARE ==
--- NOTE | 2020-02-23 17:32 | ED ---
General Adult HPI - General Chief complaint: Urogenital Stated complaint: kidney problems Time Seen by Provider: 02/23/20 17:15 Source: patient, family, RN notes reviewed Mode of arrival: wheelchair Limitations: physical limitation - History of Present Illness Initial comments: Patient is a pleasant 85-year-old male presenting to the emergency department with urinary problems. Patient states urine is sometimes coming out good and sometimes it isn't, more so today. Patient is a poor historian. Family is present who is also a poor historian. Patient states at this time he feels good and was able to urinate while in the emergency department. Patient has had some mild leg swelling over the past couple of weeks. No leg pain. No cough or dyspnea. - Related Data Home Medications Medication Instructions Recorded Confirmed Multivit-Min/FA/Lycopene/Lut 1 tab PO DAILY 12/10/14 12/21/19 [Centrum Silver Tablet] Ascorbic Acid [Vitamin C] 1,000 mg PO DAILY 05/12/18 12/21/19 Calcium Carbonate/Vitamin D3 1 tab PO DAILY 03/13/19 12/21/19 [Caltrate 600 Plus D3 Tablet] Midodrine [ProAmatine] 5 mg PO TID 03/13/19 12/21/19 polyethylene glycoL 3350 [Miralax] 17 gm PO DAILY PRN 10/01/19 12/21/19 traMADol HCL 50 mg PO BID PRN 10/01/19 12/21/19 Previous Rx's Medication Instructions Recorded cloNIDine HCL [Catapres] 0.1 mg PO BID #60 tab 10/04/19 Allergies Allergy/AdvReac Type Severity Reaction Status Date / Time Penicillins Allergy Rash/Hives Verified 02/23/20 16:55 Review of Systems ROS Statement: Those systems with pertinent positive or pertinent negative responses have been documented in the HPI. ROS Other: All systems not noted in ROS Statement are negative. Constitutional: Denies: fever Eyes: Denies: eye pain ENT: Denies: ear pain Respiratory: Denies: cough, dyspnea Cardiovascular: Denies: chest pain Endocrine: Denies: fatigue Gastrointestinal: Denies: abdominal pain, nausea, vomiting Genitourinary: Reports: as per HPI, urgency Musculoskeletal: Denies: back pain Skin: Denies: rash Neurological: Denies: weakness Past Medical History Past Medical History: Eye Disorder, Hypertension, Osteoarthritis (OA), Pneumonia, Renal Disease Additional Past Medical History / Comment(s): spouse states "having back pain poss hernia,"Lower GI bleed, peptic ulcer, gastritis, normocytic anemia, past pneumonia and pt states since then he has had "spots" on his lungs, CKD stage III, L eye small cataract. History of Any Multi-Drug Resistant Organisms: None Reported Past Surgical History: Adenoidectomy, Hernia Repair, Tonsillectomy Additional Past Surgical History / Comment(s): colonoscopies/egds, lt inguinal hernia Past Anesthesia/Blood Transfusion Reactions: No Reported Reaction Additional Past Anesthesia/Blood Transfusion Reaction / Comment(s): Pt states he has received blood in past without reaction. Past Psychological History: No Psychological Hx Reported Smoking Status: Never smoker Past Alcohol Use History: None Reported Past Drug Use History: None Reported - Past Family History Father Family Medical History: Chest Pain / Angina Additional Family Medical History / Comment(s): Father had heart disease. He lived till age 87 Mother Family Medical History: No Reported History Additional Family Medical History / Comment(s): Mother had heart disease. She lived till age 95 General Exam Limitations: no limitations, physical limitation General appearance: alert, in no apparent distress Head exam: Present: normocephalic Eye exam: Present: normal appearance Neck exam: Present: normal inspection Respiratory exam: Present: normal lung sounds bilaterally Cardiovascular Exam: Present: regular rate, normal rhythm Expanded Peripheral pulses: 2+: Dorsalis Pedis (R), Dorsalis Pedis (L) GI/Abdominal exam: Present: soft. Absent: tenderness exam: Present: normal inspection Extremities exam: Present: pedal edema (+1 bilaterally). Absent: calf tenderness Neurological exam: Present: alert Psychiatric exam: Present: normal affect, normal mood Skin exam: Present: normal color Course Vital Signs 02/23/20 02/23/20 02/23/20 16:52 17:55 18:00 Temperature 99.2 F Pulse Rate 100 Respiratory 20 18 18 Rate Blood Pressure 165/71 O2 Sat by Pulse 99 Oximetry 02/23/20 19:00 Temperature Pulse Rate Respiratory 18 Rate Blood Pressure O2 Sat by Pulse Oximetry Medical Decision Making - Medical Decision Making Patient reevaluated and resting comfortably in bed. Patient does have 450 mL out through Tapia catheter. Patient has mild dehydration. Patient will be given a small fluid bolus. Patient did originally feel comfortable discharge however later stated he does not feel comfortable with discharge and has been fatigued. Patient requests admission. Case was discussed with Dr. Basilio, who will admit covering for Dr. Leija. - Lab Data Result diagrams: 02/23/20 17:55 02/23/20 17:55 Lab Results 02/23/20 02/23/20 02/23/20 Range/Units 17:55 17:55 17:55 WBC 12.2 H (3.8-10.6) k/uL RBC 3.73 L (4.30-5.90) m/uL Hgb 10.5 L (13.0-17.5) gm/dL Hct 32.5 L (39.0-53.0) % MCV 87.2 D (80.0-100.0) fL MCH 28.1 (25.0-35.0) pg MCHC 32.2 (31.0-37.0) g/dL RDW 13.5 (11.5-15.5) % Plt Count 515 H (150-450) k/uL Neutrophils % 82 % Lymphocytes % 7 % Monocytes % 8 % Eosinophils % 1 % Basophils % 0 % Neutrophils # 10.0 H (1.3-7.7) k/uL Lymphocytes # 0.8 L (1.0-4.8) k/uL Monocytes # 1.0 (0-1.0) k/uL Eosinophils # 0.1 (0-0.7) k/uL Basophils # 0.0 (0-0.2) k/uL Hypochromasia Slight Sodium 129 L (137-145) mmol/L Potassium 4.5 (3.5-5.1) mmol/L Chloride 89 L (98-107) mmol/L Carbon Dioxide 33 H (22-30) mmol/L Anion Gap 7 mmol/L BUN 27 H (9-20) mg/dL Creatinine 1.21 (0.66-1.25) mg/dL Est GFR (CKD-EPI)AfAm 63 (>60 ml/min/1.73 sqM) Est GFR (CKD-EPI)NonAf 54 (>60 ml/min/1.73 sqM) Glucose 89 (74-99) mg/dL Calcium 9.6 (8.4-10.2) mg/dL Total Bilirubin 0.5 (0.2-1.3) mg/dL AST 53 (17-59) U/L ALT 29 (4-49) U/L Alkaline Phosphatase 130 H (38-126) U/L NT-Pro-B Natriuret Pep pg/mL Total Protein 6.5 (6.3-8.2) g/dL Albumin 3.6 (3.5-5.0) g/dL Urine Color Light Yellow Urine Appearance Clear (Clear) Urine pH 7.0 (5.0-8.0) Ur Specific [place] 1.008 (1.001-1.035) Urine Protein Negative (Negative) Urine Glucose (UA) Negative (Negative) Urine Ketones Negative (Negative) Urine Blood Negative (Negative) Urine Nitrite Negative (Negative) Urine Bilirubin Negative (Negative) Urine Urobilinogen <2.0 (<2.0) mg/dL Ur Leukocyte Esterase Negative (Negative) 02/23/20 Range/Units 17:55 WBC (3.8-10.6) k/uL RBC (4.30-5.90) m/uL Hgb (13.0-17.5) gm/dL Hct (39.0-53.0) % MCV (80.0-100.0) fL MCH (25.0-35.0) pg MCHC (31.0-37.0) g/dL RDW (11.5-15.5) % Plt Count (150-450) k/uL Neutrophils % % Lymphocytes % % Monocytes % % Eosinophils % % Basophils % % Neutrophils # (1.3-7.7) k/uL Lymphocytes # (1.0-4.8) k/uL Monocytes # (0-1.0) k/uL Eosinophils # (0-0.7) k/uL Basophils # (0-0.2) k/uL Hypochromasia Sodium (137-145) mmol/L Potassium (3.5-5.1) mmol/L Chloride (98-107) mmol/L Carbon Dioxide (22-30) mmol/L Anion Gap mmol/L BUN (9-20) mg/dL Creatinine (0.66-1.25) mg/dL Est GFR (CKD-EPI)AfAm (>60 ml/min/1.73 sqM) Est GFR (CKD-EPI)NonAf (>60 ml/min/1.73 sqM) Glucose (74-99) mg/dL Calcium (8.4-10.2) mg/dL Total Bilirubin (0.2-1.3) mg/dL AST (17-59) U/L ALT (4-49) U/L Alkaline Phosphatase (38-126) U/L NT-Pro-B Natriuret Pep 1660 pg/mL Total Protein (6.3-8.2) g/dL Albumin (3.5-5.0) g/dL Urine Color Urine Appearance (Clear) Urine pH (5.0-8.0) Ur Specific [place] (1.001-1.035) Urine Protein (Negative) Urine Glucose (UA) (Negative) Urine Ketones (Negative) Urine Blood (Negative) Urine Nitrite (Negative) Urine Bilirubin (Negative) Urine Urobilinogen (<2.0) mg/dL Ur Leukocyte Esterase (Negative) - Radiology Data Radiology results: image reviewed Disposition Clinical Impression: Urinary retention, Dehydration, Leg edema Disposition: ADMITTED IP TO THIS [facility] Condition: Stable Instructions (If sedation given, give patient instructions): Urinary Retention in Men (ED), Leg Edema (ED) Additional Instructions: Please follow-up Dr. leija in the next day or 2 for recheck. Please follow-up with urology within the next week, number provided. Return for weakness, increased swelling, shortness of breath, worsening symptoms or other concerns. You should have your sodium level rechecked within the next week. Is patient prescribed a controlled substance at d/c from ED?: No Referrals: Corwin Leija DO [Primary Care Provider] - 1-2 days Angel Davalos MD [STAFF PHYSICIAN] - 1-2 days Decision Time: 21:03
[2020-02-23 18:20] LABS: Basophils % (A) 0 %; Eosinophils # (A) 0.1 k/uL (0-0.7); Eosinophils % (A) 1 %; HCT 32.5 % (39.0-53.0); HGB 10.5 gm/dL (13.0-17.5); Hypochromasia Slight; Lymphocytes # (A) 0.8 k/uL (1.0-4.8); Lymphocytes % (A) 7 %; MCH 28.1 pg (25.0-35.0); MCHC 32.2 g/dL (31.0-37.0); Mean Platelet Volume 6.5; Monocytes % (A) 8 %; Neutrophils % (A) 82 %; Platelet Count 515 k/uL (150-450); RBC 3.73 m/uL (4.30-5.90); RDW 13.5 % (11.5-15.5); WBC 12.2 k/uL (3.8-10.6)
[2020-02-23 18:21] LABS: MCV 87.2 fL (80.0-100.0)
[2020-02-23 18:30] LABS: Appearance,Urine Clear (Clear); Bilirubin,Urine Negative (Negative); Blood,Urine Negative (Negative); Color,Urine Light Yellow; Glucose,Urine (UA) Negative (Negative); Ketones,Urine Negative (Negative); Leukocyte Esterase,Urine Negative (Negative); Nitrite,Urine Negative (Negative); Protein,Urine Negative (Negative); Specific Gravity,Urine 1.008 (1.001-1.035); Urobilinogen,Urine <2.0 mg/dL (<2.0)
[2020-02-23 18:46] LABS: Albumin 3.6 g/dL (3.5-5.0); Calcium 9.6 mg/dL (8.4-10.2); Potassium 4.5 mmol/L (3.5-5.1); Total Bilirubin 0.5 mg/dL (0.2-1.3); Total Protein 6.5 g/dL (6.3-8.2)
[2020-02-23] MEDS ORDERED: SODIUM CHLORIDE 0.9% 500 ML 500 ML IV STA (19:39)
--- NOTE | 2020-02-23 20:11 | XR ---
EXAMINATION TYPE: XR chest 2V DATE OF EXAM: 02/23/2020 CLINICAL HISTORY: Edema TECHNIQUE: Frontal and lateral views of the chest are obtained. COMPARISON: Chest radiograph 10/01/2019 FINDINGS: The cardiomediastinal silhouette is within normal limits for size. Pulmonary vasculature i s normal. There is no focal air space opacity, pleural effusion, or pneumothorax seen. 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 IMPRESSION: 1. No acute cardiopulmonary process. 2. Chronic thoracic vertebral compression deformities, with mild progression of the T11 compression d eformity versus 10/01/2019.
--- NOTE | 2020-02-23 20:43 | XR ---
EXAMINATION TYPE: XR KUB portable DATE OF EXAM: 02/23/2020 7:04 PM CLINICAL HISTORY: Urinary retention TECHNIQUE: Supine image of the abdomen and pelvis obtained COMPARISON: 09/29/2019 abdominal radiograph. FINDINGS: Scattered gas is seen in non-distended small bowel loops. Gas and fecal material is seen in non-distended colon. Calcifications of the left upper quadrant redemonstrated. Redemonstrated degene rative changes of the spine and hips. IMPRESSION: Nonobstructive bowel gas pattern.
[2020-02-23] MEDS ORDERED: NALOXONE 0.4 MG/ML 1 ML VIAL IV PRN (21:04)
[2020-02-23] MEDS: SODIUM CHLORIDE 0.9% 1,000 ML IV SCH (23:37)
[2020-02-24 08:28] LABS: Basophils # (A) 0.1 k/uL (0-0.2); Basophils % (A) 0 %; Eosinophils # (A) 0.1 k/uL (0-0.7); Eosinophils % (A) 1 %; HCT 30.4 % (39.0-53.0); HGB 9.4 gm/dL (13.0-17.5); Hypochromasia Slight; Lymphocytes # (A) 0.9 k/uL (1.0-4.8); Lymphocytes % (A) 6 %; MCH 27.2 pg (25.0-35.0); MCHC 30.8 g/dL (31.0-37.0); MCV 88.2 fL (80.0-100.0); Mean Platelet Volume 6.8; Monocytes # (A) 0.9 k/uL (0-1.0); Monocytes % (A) 6 %; Neutrophils # (A) 12.5 k/uL (1.3-7.7); Neutrophils % (A) 85 %; Platelet Count 541 k/uL (150-450); RBC 3.45 m/uL (4.30-5.90); RDW 13.8 % (11.5-15.5); WBC 14.7 k/uL (3.8-10.6)
[2020-02-24 08:41] LABS: Calcium 8.6 mg/dL (8.4-10.2)
[2020-02-24] MEDS: SODIUM CHLORIDE 0.9% 1,000 ML IV SCH (11:32)
[2020-02-24] MEDS: TAMSULOSIN 0.4 MG CAP.ER.24H PO SCH ×2 (14:16→21:38)
[2020-02-24] MEDS: ENOXAPARIN 40 MG/0.4 ML SYRINGE SQ SCH (14:17)
[2020-02-24] MEDS ORDERED: MAG HYDROX/AL HYDROX/SIMETH 30 ML CUP PO PRN (17:55)
[2020-02-24] MEDS ORDERED: LACTULOSE 20 GM/30 ML CUP PO PRN (17:55)
[2020-02-24] MEDS ORDERED: ACETAMINOPHEN TAB 325 MG TAB PO PRN (17:55)
[2020-02-24] MEDS ORDERED: MAGNESIUM HYDROXIDE 2,400 MG/10 ML CUP PO PRN (17:55)
[2020-02-24] MEDS ORDERED: MELATONIN 3 MG TABLET PO PRN (17:55)
[2020-02-24] MEDS ORDERED: CALCIUM CARBONATE 500 MG CHEWABLE PO PRN (17:55)
[2020-02-24] MEDS ORDERED: ONDANSETRON 4 MG/2 ML VIAL IVP PRN (17:55)
--- NOTE | 2020-02-24 17:56 | P.HPIM ---
History of Present Illness H&P Date: 02/24/20 Chief Complaint: Difficulty with urination History of presenting complaint: This is a pleasant 85-year-old patient of Dr. Leija. Chronic stable medical conditions include hypertension, osteoarthritis, peptic ulcer disease, moderate protein calorie malnutrition, L1-L3 subacute compression fracture of the vertebra, autonomic dysfunction. Baseline uses a cane. Patient presents with the ER with urinary symptoms. Stating sometimes able to make urine and other times not. Denies any new back pain. Appetite decreased. Tapia catheter was placed in the ER. Denies any fever and chills. A bit tired and rundown. Review of systems: GEN.: Tired decreased appetite EYES: None HEENT: Decreased hearing NECK: None RESPIRATORY: None CARDIOVASCULAR: None GASTROINTESTINAL: None GENITOURINARY: As above MUSCULOSKELETAL: Joint pains LYMPHATICS: None HEMATOLOGICAL: None PSYCHIATRY: forgetful NEUROLOGICAL: None Past medical history to include: Hypertension, osteoarthritis, peptic ulcer, normocytic anemia, moderate protein calorie malnutrition, L1 L3 vertebral fracture, tricuspid regurgitation Social history: Does not smoke or drink alcohol. Does use a cane. Lives of [place] Physical examination: VITAL SIGNS: 99.2, 100, 20, 165/71, 99% room air GENERAL: BMI 17.2 laying in bed, tired. EYES: Pupils equal. Conjunctiva pale HEENT: External appearance of nose and ears normal, oral cavity grossly normal. NECK: JVD not raised; masses not palpable. HEART: First and second heart sounds are normal; no edema. LUNGS: Respiratory rate normal; clear to auscultation. ABDOMEN: Soft, nontender, liver spleen not palpable, no masses palpable. PSYCH: Answering simple questions MUSCULOSKELETAL: Loss of subcutaneous fat and prominent bony prominences NEUROLOGICAL: Cranial nerves grossly intact; no facial asymmetry, power and sensation grossly intact. LYMPHATICS: No lymph nodes palpable in the axilla and neck INVESTIGATIONS, reviewed in the clinical context: White count 12.2 hemoglobin 10.5 platelets 515 sodium 129 potassium 4.5 bun 27 creatinine 1.21 UA negative Chest x-ray film personally reviewed by me-possibly chronic changes Assessment: -Intermittent urine outflow obstruction likely from underlying BPH -Possible autonomic dysfunction -Essential hypertension - proximal myopathy -Severe protein calorie malnutrition-from decreased oral intake -L1-L3 subacute compression fracture secondary to fall -Chronic medical debility -Chronic kidney dysfunction uses a cane -Mild cognitive impairment Plan: Tapia cath was placed in the ER. We'll gently hydrate the patient. At Flomax. He would DC trial of Tapia in the morning. PTOT. And showed supplementation. Past Medical History Past Medical History: Eye Disorder, Hypertension, Osteoarthritis (OA), Pneumonia, Renal Disease Additional Past Medical History / Comment(s): spouse states "having back pain poss hernia,"Lower GI bleed, peptic ulcer, gastritis, normocytic anemia, past pneumonia and pt states since then he has had "spots" on his lungs, CKD stage III, L eye small cataract. History of Any Multi-Drug Resistant Organisms: None Reported Past Surgical History: Adenoidectomy, Hernia Repair, Tonsillectomy Additional Past Surgical History / Comment(s): colonoscopies/egds, lt inguinal hernia Past Anesthesia/Blood Transfusion Reactions: No Reported Reaction Additional Past Anesthesia/Blood Transfusion Reaction / Comment(s): Pt states he has received blood in past without reaction. Past Psychological History: No Psychological Hx Reported Additional Psychological History / Comment(s): Pt states he and his spouse moved into [employer] one week ago. He uses no assistive device. He drives. Pt has a nebulizer. Smoking Status: Never smoker Past Alcohol Use History: None Reported Past Drug Use History: None Reported - Past Family History Father Family Medical History: Chest Pain / Angina Additional Family Medical History / Comment(s): Father had heart disease. He lived till age 87 Mother Family Medical History: No Reported History Additional Family Medical History / Comment(s): Mother had heart disease. She lived till age 95 Medications and Allergies Home Medications Medication Instructions Recorded Confirmed Type Multivit-Min/FA/Lycopene/Lut 1 tab PO DAILY 12/10/14 02/23/20 History [Centrum Silver Tablet] Ascorbic Acid [Vitamin C] 1,000 mg PO DAILY 05/12/18 02/23/20 History Calcium Carbonate/Vitamin D3 1 tab PO DAILY 03/13/19 02/23/20 History [Caltrate 600 Plus D3 Tablet] polyethylene glycoL 3350 [Miralax] 17 gm PO DAILY PRN 10/01/19 02/23/20 History Torsemide [Demadex] 5 mg PO DAILY 02/23/20 02/23/20 History Allergies Allergy/AdvReac Type Severity Reaction Status Date / Time Penicillins Allergy Rash/Hives Verified 02/23/20 22:44 Physical Exam Vitals: Vital Signs Temp Pulse Pulse Resp BP BP Pulse Ox 02/24/20 07:39 97.4 F L 96 16 137/71 02/24/20 00:42 98.2 F 102 H 143/68 97 02/23/20 22:06 98.1 F 108 H 174/87 97 02/23/20 21:28 79 18 163/92 99 02/23/20 19:00 18 02/23/20 18:00 18 02/23/20 17:55 18 02/23/20 16:52 99.2 F 100 20 165/71 99 Intake and Output 02/23/20 02/24/20 02/24/20 22:59 06:59 14:59 Intake Total 575 Output Total 238 1200 Balance 337 -1200 Intake: Intake, IV Titration 575 Amount Sodium Chloride 0.9% 1, 75 000 ml @ 75 mls/hr IV . [id number] ADELINE Rx#:[id number] Sodium Chloride 0.9% 500 500 ml 500 ml @ 999 mls/hr IV .Q31M STA Rx#:[id number] Output: Urine 55 1200 Uretheral (Tapia) 55 Post Void Residual 183 Other: Voiding Method Indwelling Catheter Indwelling Catheter Weight 49.895 kg Results CBC & Chem 7: 02/24/20 07:47 02/24/20 07:47 Labs: Abnormal Lab Results - Last 24 Hours (Table) 02/23/20 02/23/20 02/24/20 Range/Units 17:55 17:55 07:47 WBC 12.2 H 14.7 H (3.8-10.6) k/uL RBC 3.73 L 3.45 L (4.30-5.90) m/uL Hgb 10.5 L 9.4 L (13.0-17.5) gm/dL Hct 32.5 L 30.4 L (39.0-53.0) % MCHC 30.8 L (31.0-37.0) g/dL Plt Count 515 H 541 H (150-450) k/uL Neutrophils # 10.0 H 12.5 H (1.3-7.7) k/uL Lymphocytes # 0.8 L 0.9 L (1.0-4.8) k/uL Sodium 129 L (137-145) mmol/L Chloride 89 L (98-107) mmol/L Carbon Dioxide 33 H (22-30) mmol/L BUN 27 H (9-20) mg/dL Alkaline Phosphatase 130 H (38-126) U/L // Range/Units 07:47 WBC (3.8-10.6) k/uL RBC (4.30-5.90) m/uL Hgb (13.0-17.5) gm/dL Hct (39.0-53.0) % MCHC (31.0-37.0) g/dL Plt Count (150-450) k/uL Neutrophils # (1.3-7.7) k/uL Lymphocytes # (1.0-4.8) k/uL Sodium 130 L (137-145) mmol/L Chloride 94 L (98-107) mmol/L Carbon Dioxide 32 H (22-30) mmol/L BUN 22 H (9-20) mg/dL Alkaline Phosphatase (38-126) U/L Thrombosis Risk Factor Assmnt - Choose All That Apply Any of the Below Risk Factors Present?: Yes Each Risk Factor Represents 3 Points: Age 75 years or older Thrombosis Risk Factor Assessment Total Risk Factor Score: 3 Thrombosis Risk Factor Assessment Level: Moderate Risk
[2020-02-24 20:21] VITALS: BMI 17.2
[2020-02-25 07:30] LABS: Calcium 8.2 mg/dL (8.4-10.2); Potassium 3.8 mmol/L (3.5-5.1)
[2020-02-25] MEDS: SODIUM CHLORIDE 0.9% 1,000 ML IV SCH ×2 (07:37→11:57)
[2020-02-25] MEDS: TAMSULOSIN 0.4 MG CAP.ER.24H PO SCH ×2 (07:38→17:47)
[2020-02-25] MEDS: ENOXAPARIN 40 MG/0.4 ML SYRINGE SQ SCH (07:38)
--- NOTE | 2020-02-25 17:26 | P.PN ---
Progress Note - Text Progress Note Date: 02/25/20 Chief Complaint: Difficulty with urination History of presenting complaint: This is a pleasant 85-year-old patient of Dr. Leija. Chronic stable medical conditions include hypertension, osteoarthritis, peptic ulcer disease, moderate protein calorie malnutrition, L1-L3 subacute compression fracture of the vertebra, autonomic dysfunction. Baseline uses a cane. Patient presents with the ER with urinary symptoms. Stating sometimes able to make urine and other times not. Denies any new back pain. Appetite decreased. Tapia catheter was placed in the ER. Denies any fever and chills. A bit tired and rundown. Admitted with bladder outflow obstruction and weakness. Did have a Tapia catheter placed. Started on Flomax. PTOT consulted. Today-sitting up in a chair. Tapia catheter was discontinued this morning. Making urine on his own. Though weak and tired. Case management involved into discharge planning. Did tolerate some diet. Review of systems: Was done for constitutional, cardiovascular, GI, pulmonary. relevant finding as above Active Medications Acetaminophen (Tylenol Tab) 650 mg PO Q6HR PRN PRN Reason: Mild Pain or Fever > 100.5 Al Hydroxide/Mg Hydroxide (Maalox) 15 ml PO Q6HR PRN PRN Reason: Indigestion Calcium Carbonate/Glycine (Tums) 1,000 mg PO Q4HR PRN PRN Reason: Dyspepsia Enoxaparin Sodium (Lovenox) 40 mg SQ DAILY [facility] Last Admin: 02/25/20 07:38 Dose: 40 mg Documented by: Sodium Chloride (Saline 0.9%) 1,000 mls @ 75 mls/hr IV .[id number] [facility] Last Admin: 02/25/20 11:57 Dose: 75 mls/hr Documented by: Lactulose (Cephulac) 20 gm PO DAILY PRN PRN Reason: Constipation Magnesium Hydroxide (Milk Of Magnesia) 2,400 mg PO DAILY PRN PRN Reason: Constipation Melatonin (Melatonin) 3 mg PO HS PRN PRN Reason: Insomnia Naloxone HCl (Narcan) 0.2 mg IV Q2M PRN PRN Reason: Opioid Reversal Ondansetron HCl (Zofran) 4 mg IVP Q8HR PRN PRN Reason: Nausea And Vomiting Tamsulosin HCl (Flomax) 0.4 mg PO AC-BID [facility] Last Admin: 02/25/20 07:38 Dose: 0.4 mg Documented by: Physical examination: VITAL SIGNS: 98.7, 85, 16, 162/74, GENERAL: Sitting up in a chair and appears comfortable. EYES: Pupils equal. Conjunctiva pale HEENT: External appearance of nose and ears normal, oral cavity grossly normal. NECK: JVD not raised; masses not palpable. HEART: First and second heart sounds are normal; no edema. LUNGS: Respiratory rate normal; clear to auscultation. ABDOMEN: Soft, nontender, liver spleen not palpable, no masses palpable. PSYCH: Answering simple questions MUSCULOSKELETAL: Loss of subcutaneous fat and prominent bony prominences INVESTIGATIONS, reviewed in the clinical context: Sodium 1:30 potassium 3.8 creatinine 0.98 Previous testing White count 12.2 hemoglobin 10.5 platelets 515 sodium 129 potassium 4.5 bun 27 creatinine 1.21 UA negative Chest x-ray film personally reviewed by me-possibly chronic changes Assessment: -Intermittent urine outflow obstruction likely from underlying BPH-responded to Flomax -Possible autonomic dysfunction -Essential hypertension - proximal myopathy -Severe protein calorie malnutrition-from decreased oral intake -L1-L3 subacute compression fracture secondary to fall -Chronic medical debility -Chronic kidney dysfunction uses a cane -Mild cognitive impairment -Medical debility Plan: -We'll keep the patient on Flomax. Discussed with the case medicine bilingual social worker. There'll be talking to patient's . Based on PTOT recommendation patient may need rehab. Other medications to continue.
--- NOTE | 2020-02-25 20:56 | CT ---
EXAMINATION TYPE: CT brain cspine wo con DATE OF EXAM: 02/25/2020 COMPARISON: 12/01/2019 HISTORY: Recent fall injury CT DLP: 1300.7 mGycm Automated exposure control for dose reduction was used. TECHNIQUE: CT scan of the head and cervical spine are performed without contrast. FINDINGS: There is no skull fracture or acute intracranial hemorrhage, mass effect, or midline shift identified. There is prominent bilateral newton radiata and centrum semiovale low-attenuation, entir ruddy nonspecific. No definite acute attenuation defect. The ventricles and cisterns are more prominent than the sulcal pattern, which is a nonspecific finding but can correlate with a clinical diagnosis of normal pressure hydrocephalus. The globes are intact and the visualized sinuses are clear. Cervical spine is visualized in its entirety from C1 through upper thoracic levels and demonstrates s atisfactory alignment without evidence of acute fracture or dislocation. Prevertebral soft tissue ap pears within normal limits. The C1-C2 articulation is unremarkable. IMPRESSION: 1. There is no acute fracture or dislocation evident in the cervical spine. 2. No acute intracranial hemorrhage, mass effect, or midline shift is seen.
[2020-02-26 07:25] VITALS: RESP 20
[2020-02-26] MEDS: ENOXAPARIN 40 MG/0.4 ML SYRINGE SQ SCH (09:47)
[2020-02-26] MEDS ORDERED: METOPROLOL TARTRATE 25 MG TAB PO SCH (12:15)
--- NOTE | 2020-02-26 14:39 | P.DS ---
Providers Date of admission: 02/23/20 21:04 Expected date of discharge: 02/26/20 Attending physician: Kj Basilio Primary care physician: Corwin Frank [facility] Course: Chief Complaint: Difficulty with urination History of presenting complaint: This is a pleasant 85-year-old patient of Dr. Frank. Chronic stable medical conditions include hypertension, osteoarthritis, peptic ulcer disease, moderate protein calorie malnutrition, L1-L3 subacute compression fracture of the vertebra, autonomic dysfunction. Baseline uses a cane. Patient presents with the ER with urinary symptoms. Stating sometimes able to make urine and other times not. Denies any new back pain. Appetite decreased. Tapia catheter was placed in the ER. Denies any fever and chills. A bit tired and rundown. Admitted with bladder outflow obstruction and weakness, hyponatremia. Did have a Tapia catheter placed. Started on Flomax. PTOT consulted. Tapia catheter discontinued. Seen by PTOT. [place] to be a candidate for rehab. Appetite fair. Patient did take a fall and bumped his head. Has a small hematoma. Fracture was ruled out. Patient back to baseline. Today-comfortable. Started in her diet. Discussed with the patient. Physical examination: VITAL SIGNS: 98.7, 85, 16, 162/74, GENERAL: Sitting up in a chair and appears comfortable. EYES: Pupils equal. Conjunctiva pale HEENT: External appearance of nose and ears normal, oral cavity grossly normal. NECK: JVD not raised; masses not palpable. HEART: First and second heart sounds are normal; no edema. LUNGS: Respiratory rate normal; clear to auscultation. ABDOMEN: Soft, nontender, liver spleen not palpable, no masses palpable. 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 -Severe protein calorie malnutrition-from decreased oral intake -L1-L3 subacute compression fracture secondary to fall -Chronic medical debility -Chronic kidney dysfunction uses a cane -Mild cognitive impairment -Medical debility-using walker Disposition: [facility] English/ECF CBC BMP-5 days Patient Condition at Discharge: Stable Plan - Discharge Summary New Discharge Prescriptions: New Tamsulosin [Flomax] 0.4 mg PO PC-SUPPER cap.er.24h Melatonin 3 mg PO HS PRN tablet PRN Reason: Insomnia Acetaminophen Tab [Tylenol] 650 mg PO Q6HR PRN tab PRN Reason: Mild Pain Or Fever > 100.5 Continue Ascorbic Acid [Vitamin C] 1,000 mg PO DAILY Calcium Carbonate/Vitamin D3 [Caltrate 600 Plus D3 Tablet] 1 tab PO DAILY polyethylene glycoL 3350 [Miralax] 17 gm PO DAILY PRN PRN Reason: Constipation Discontinued Multivit-Min/FA/Lycopene/Lut [Centrum Silver Tablet] 1 tab PO DAILY Torsemide [Demadex] 5 mg PO DAILY Discharge Medication List Ascorbic Acid [Vitamin C] 1,000 mg PO DAILY 05/12/18 [History] Calcium Carbonate/Vitamin D3 [Caltrate 600 Plus D3 Tablet] 1 tab PO DAILY 03/13/19 [History] polyethylene glycoL 3350 [Miralax] 17 gm PO DAILY PRN 10/01/19 [History] Acetaminophen Tab [Tylenol] 650 mg PO Q6HR PRN tab 02/26/20 [Rx] Melatonin 3 mg PO HS PRN tablet 02/26/20 [Rx] Tamsulosin [Flomax] 0.4 mg PO PC-SUPPER cap.er.24h 02/26/20 [Rx] Follow up Appointment(s)/Referral(s): Corwin Frank DO [Primary Care Provider] - 03/01/20 11:20 am Angel Davalos MD [STAFF PHYSICIAN] - 03/03/20 10:20 am Patient Instructions/Handouts: Urinary Retention in Men (ED), Leg Edema (ED) Activity/Diet/Wound Care/Special Instructions: Please follow-up Dr. frank in the next day or 2 for recheck. Please follow-up with urology within the next week, number provided. Return for weakness, increased swelling, shortness of breath, worsening symptoms or other concerns. You should have your sodium level rechecked within the next week.
[2020-02-26 14:51] VITALS: BP 136/95; PULSE 98; TEMP 96.9
[2020-02-26] MEDS ORDERED: TAMSULOSIN 0.4 MG CAP.ER.24H PO SCH (18:30)
== END 2020-02-26 16:00 | DRG 725 ==
LOC: EC 16:31 → 4SSUR 21:04
PROVIDERS: ADMIT Hospitalist; ATTEND Hospitalist
DX: N40.1 Benign prostatic hyperplasia with lower urinary tract symptoms (principal); E43 Unspecified severe protein-calorie malnutrition; S32.019A Unspecified fracture of first lumbar vertebra, initial encounter for closed fracture; S32.029A Unspecified fracture of second lumbar vertebra, initial encounter for closed fracture; S32.039A Unspecified fracture of third lumbar vertebra, initial encounter for closed fracture; E87.1 Hypo-osmolality and hyponatremia; N13.8 Other obstructive and reflux uropathy; Z68.1 Body mass index [BMI] 19.9 or less, adult; M19.90 Unspecified osteoarthritis, unspecified site; H57.9 Unspecified disorder of eye and adnexa; E86.0 Dehydration; R60.0 Localized edema; R33.8 Other retention of urine; Z11.59 Encounter for screening for other viral diseases; G90.9 Disorder of the autonomic nervous system, unspecified; D63.1 Anemia in chronic kidney disease; R53.81 Other malaise; N18.3 Chronic kidney disease, stage 3 (moderate); G31.84 Mild cognitive impairment of uncertain or unknown etiology; I12.9 Hypertensive chronic kidney disease with stage 1 through stage 4 chronic kidney disease, or unspecified chronic kidney disease; W19.XXXA Unspecified fall, initial encounter; H26.9 Unspecified cataract; Z79.899 Other long term (current) drug therapy; Z88.0 Allergy status to penicillin; Z87.01 Personal history of pneumonia (recurrent); Z90.89 Acquired absence of other organs; Z98.890 Other specified postprocedural states; Z87.19 Personal history of other diseases of the digestive system; Z82.49 Family history of ischemic heart disease and other diseases of the circulatory system; Z87.11 Personal history of peptic ulcer disease
CPT/HCPCS: 36415; 51702; 51798; 70450; 71046; 72125; 74018; 80048; 80053; 81003; 83880; 85025; 93005; 96360; 96361; 99284

== ENCOUNTER 2020-04-25 17:12 | Observation (INO) | payer MEDICARE ==
[2020-04-25] MEDS ORDERED: SODIUM CHLORIDE 0.9% 1,000 ML IV STA ×2 (17:31)
--- NOTE | 2020-04-25 17:38 | ED ---
Male Urogenital HPI - General Chief complaint: Urogenital Stated complaint: unable to urinate Time Seen by Provider: 04/25/20 17:15 Source: patient, EMS, RN notes reviewed Mode of arrival: EMS - History of Present Illness Initial comments: This 85-year-old male who presents by EMS with complaints of decreased urination recently. He is a poor historian and is unclear exactly how long this is been going on he has been demonstrating urinary incontinence. No fevers chills nause a vomiting sweats. He has ever prior history of urinary tract infections as well as hypertension. He states she's eating and drinking normally. He also has a bit of a headache he states today. No recent falls. No other complaints or modifying factors at this time MD Complaint: other - Related Data Home Medications Medication Instructions Recorded Confirmed Ascorbic Acid [Vitamin C] 1,000 mg PO DAILY 05/12/18 02/23/20 Calcium Carbonate/Vitamin D3 1 tab PO DAILY 03/13/19 02/23/20 [Caltrate 600 Plus D3 Tablet] polyethylene glycoL 3350 [Miralax] 17 gm PO DAILY PRN 10/01/19 02/23/20 Previous Rx's Medication Instructions Recorded Acetaminophen Tab [Tylenol] 650 mg PO Q6HR PRN tab 02/26/20 Melatonin 3 mg PO HS PRN tablet 02/26/20 Tamsulosin [Flomax] 0.4 mg PO PC-SUPPER cap.er.24h 02/26/20 Allergies Allergy/AdvReac Type Severity Reaction Status Date / Time Penicillins Allergy Rash/Hives Verified 02/23/20 22:44 Review of Systems ROS Statement: Those systems with pertinent positive or pertinent negative responses have been documented in the HPI. ROS Other: All systems not noted in ROS Statement are negative. Past Medical History Past Medical History: Eye Disorder, Hypertension, Osteoarthritis (OA), Pneumonia, Renal Disease Additional Past Medical History / Comment(s): spouse states "having back pain po ss hernia,"Lower GI bleed, peptic ulcer, gastritis, normocytic anemia, past pneumonia and pt states since then he has had "spots" on his lungs, CKD stage III, L eye small cataract. History of Any Multi-Drug Resistant Organisms: None Reported Past Surgical History: Adenoidectomy, Hernia Repair, Tonsillectomy Additional Past Surgical History / Comment(s): colonoscopies/egds, lt inguinal hernia Past Anesthesia/Blood Transfusion Reactions: No Reported Reaction Additional Past Anesthesia/Blood Transfusion Reaction / Comment(s): Pt states he has received blood in past without reaction. Past Psychological History: No Psychological Hx Reported Smoking Status: Never smoker Past Alcohol Use History: None Reported Past Drug Use History: None Reported - Past Family History Father Family Medical History: Chest Pain / Angina Additional Family Medical History / Comment(s): Father had heart disease. He lived till age 87 Mother Family Medical History: No Reported History Additional Family Medical History / Comment(s): Mother had heart disease. She lived till age 95 General Exam - General Exam Comments Initial Comments: This is a well-developed asthenic appearing male was awake alert oriented 3 General appearance: alert, in no apparent distress Head exam: Present: atraumatic, normocephalic, normal inspection Eye exam: Present: normal appearance, PERRL, EOMI. Absent: scleral icterus, co njunctival injection, periorbital swelling ENT exam: Present: mucous membranes dry Neck exam: Present: normal inspection. Absent: tenderness, meningismus, lymphadenopathy Respiratory exam: Present: normal lung sounds bilaterally. Absent: respiratory distress, wheezes, rales, rhonchi, stridor Cardiovascular Exam: Present: normal rhythm, tachycardia, normal heart sounds. Absent: systolic murmur, diastolic murmur, rubs, gallop, clicks GI/Abdominal exam: Present: soft, normal bowel sounds. Absent: distended, tenderness, guarding, rebound, rigid Rectal exam: Present: deferred exam: Present: normal inspection Extremities exam: Present: normal inspection, full ROM, normal capillary refill. Absent: tenderness, pedal edema, joint swelling, calf tenderness Back exam: Present: normal inspection Neurological exam: Present: alert, oriented X3, CN II-XII intact Psychiatric exam: Present: normal affect, normal mood Skin exam: Present: warm, dry, intact, normal color. Absent: rash Course Vital Signs 04/25/20 04/25/20 17:14 18:45 Temperature 98.1 F Pulse Rate 108 H 106 H Respiratory 18 18 Rate Blood Pressure 147/72 140/69 O2 Sat by Pulse 99 97 Oximetry Medical Decision Making - Medical Decision Making I did discuss findings the patient and family as well as with Dr. Yuan. Patient be admitted for IV hydration. - Lab Data Result diagrams: 04/25/20 17:37 04/25/20 17:37 Lab Results 04/25/20 04/25/20 04/25/20 Range/Units 17:37 17:37 17:37 WBC 14.1 H (3.8-10.6) k/uL RBC 3.54 L (4.30-5.90) m/uL Hgb 9.2 L (13.0-17.5) gm/dL Hct 29.5 L (39.0-53.0) % MCV 83.5 (80.0-100.0) fL MCH 25.9 (25.0-35.0) pg MCHC 31.0 (31.0-37.0) g/dL RDW 15.0 (11.5-15.5) % Plt Count 468 H (150-450) k/uL Neutrophils % 85 % Lymphocytes % 6 % Monocytes % 7 % Eosinophils % 1 % Basophils % 0 % Neutrophils # 11.9 H (1.3-7.7) k/uL Lymphocytes # 0.8 L (1.0-4.8) k/uL Monocytes # 0.9 (0-1.0) k/uL Eosinophils # 0.2 (0-0.7) k/uL Basophils # 0.0 (0-0.2) k/uL Hypochromasia Slight Sodium 128 L (137-145) mmol/L Potassium 4.4 (3.5-5.1) mmol/L Chloride 91 L (98-107) mmol/L Carbon Dioxide 33 H (22-30) mmol/L Anion Gap 4 mmol/L BUN 32 H (9-20) mg/dL Creatinine 1.34 H (0.66-1.25) mg/dL Est GFR (CKD-EPI)AfAm 55 (>60 ml/min/1.73 sqM) Est GFR (CKD-EPI)NonAf 48 (>60 ml/min/1.73 sqM) Glucose 110 H (74-99) mg/dL Calcium 9.4 (8.4-10.2) mg/dL Total Bilirubin 0.6 (0.2-1.3) mg/dL AST 46 (17-59) U/L ALT 9 (4-49) U/L Alkaline Phosphatase 74 (38-126) U/L Total Protein 5.3 L (6.3-8.2) g/dL Albumin 2.8 L (3.5-5.0) g/dL Amylase 59 (30-110) U/L Lipase 49 (23-300) U/L Urine Color Yellow Urine Appearance Clear (Clear) Urine pH 5.5 (5.0-8.0) Ur Specific [place] 1.014 (1.001-1.035) Urine Protein Trace H (Negative) Urine Glucose (UA) Negative (Negative) Urine Ketones Trace H (Negative) Urine Blood Negative (Negative) Urine Nitrite Negative (Negative) Urine Bilirubin Negative (Negative) Urine Urobilinogen <2.0 (<2.0) mg/dL Ur Leukocyte Esterase Negative (Negative) - Radiology Data Radiology results: report reviewed (I did review the imaging and report no acute findings.), image reviewed Disposition Clinical Impression: Dehydration, Oliguria, Renal insufficiency syndrome, Anemia Disposition: ADMITTED IP TO THIS [facility] Condition: Fair Referrals: Corwin Leija DO [Primary Care Provider] - 1-2 days
[2020-04-25 17:56] LABS: Basophils % (A) 0 %; Eosinophils # (A) 0.2 k/uL (0-0.7); Eosinophils % (A) 1 %; HCT 29.5 % (39.0-53.0); HGB 9.2 gm/dL (13.0-17.5); Hypochromasia Slight; Lymphocytes # (A) 0.8 k/uL (1.0-4.8); Lymphocytes % (A) 6 %; MCH 25.9 pg (25.0-35.0); MCV 83.5 fL (80.0-100.0); Mean Platelet Volume 6.5; Monocytes # (A) 0.9 k/uL (0-1.0); Monocytes % (A) 7 %; Neutrophils # (A) 11.9 k/uL (1.3-7.7); Neutrophils % (A) 85 %; Platelet Count 468 k/uL (150-450); RBC 3.54 m/uL (4.30-5.90); WBC 14.1 k/uL (3.8-10.6)
[2020-04-25 18:06] LABS: Albumin 2.8 g/dL (3.5-5.0); Calcium 9.4 mg/dL (8.4-10.2); Potassium 4.4 mmol/L (3.5-5.1); Total Bilirubin 0.6 mg/dL (0.2-1.3); Total Protein 5.3 g/dL (6.3-8.2)
--- NOTE | 2020-04-25 18:34 | XR ---
EXAMINATION TYPE: XR KUB DATE OF EXAM: 04/25/2020 COMPARISON: 02/23/2020 HISTORY: Abdominal pain TECHNIQUE: Single view supine FINDINGS: There is no sign of intestinal obstruction or pneumoperitoneum. Fecal pattern is normal. Th ere is no sign of a mass. There are no pathologic calcifications over the kidneys. There is spondylot ic changes in the lumbar spine. IMPRESSION: Nonacute abdomen. No change.
[2020-04-25 18:53] LABS: Appearance,Urine Clear (Clear); Bilirubin,Urine Negative (Negative); Blood,Urine Negative (Negative); Color,Urine Yellow; Glucose,Urine (UA) Negative (Negative); Ketones,Urine Trace (Negative); Leukocyte Esterase,Urine Negative (Negative); Nitrite,Urine Negative (Negative); PH, Urine 5.5 (5.0-8.0); Protein,Urine Trace (Negative); Specific Gravity,Urine 1.014 (1.001-1.035); Urobilinogen,Urine <2.0 mg/dL (<2.0)
[2020-04-25] MEDS ORDERED: NALOXONE 0.4 MG/ML 1 ML VIAL IV PRN (19:39)
[2020-04-25] MEDS ORDERED: MELATONIN 3 MG TABLET PO PRN (19:44)
[2020-04-25] MEDS ORDERED: polyethylene glycoL 3350 17 GM POWD.PACK PO PRN (19:44)
[2020-04-26] MEDS: ASCORBIC ACID 500 MG TAB PO SCH (09:12)
[2020-04-26] MEDS: CALCIUM CARB-VIT D 500MG-200UN 1 EACH TAB PO SCH (09:12)
[2020-04-26] MEDS ORDERED: traMADol 50 MG TAB PO PRN (11:47)
--- NOTE | 2020-04-26 13:31 | P.HPIM ---
History of Present Illness 85-year-old pleasant male severely cachectic failure to thrive appear to be dehydrated and is being admitted for dehydration. Patient was brought in by the by his because has not been urinating well recently and has been quite weak. Patient lives with his not a good historian alert oriented 1 apparently has history of dementia and patient does have history of BPH and was on Flomax. Patient was started on IV fluids and appeared to be severely dehydrated. Patient was rapidly retaining urine because of which a Tapia catheter was placed and patient was started on IV fluids with aggressive hydration and patient was having good urine output since then. And the patient had compression fractures from his fall in the past. Patient was discharged to [facility] after his admission in month of January. 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 Other hx: CKD stage III, anemia, BPH, past lower GI bleed, PUD, gastritis, "spots on lungs since pneumonia", L1-L3 compression fracture, low back pain, constipation, L eye small cataract. History of Any Multi-Drug Resistant Organisms: None Reported Past Surgical History: Adenoidectomy, Hernia Repair, Tonsillectomy Additional Past Surgical History / Comment(s): colonoscopies/egds, lt inguinal hernia Past Anesthesia/Blood Transfusion Reactions: No Reported Reaction Additional Past Anesthesia/Blood Transfusion Reaction / Comment(s): Pt has received blood in past without reaction. Smoking Status: Never smoker - Past Family History Father Family Medical History: Chest Pain / Angina Additional Family Medical History / Comment(s): Father had heart disease. He lived till age 87 Mother Family Medical History: Renal Disease Additional Family Medical History / Comment(s): Mother had heart disease, bowel and kidney issues. She lived till age 95 Medications and Allergies Home Medications Medication Instructions Recorded Confirmed Type Ascorbic Acid [Vitamin C] 1,000 mg PO DAILY 05/12/18 04/25/20 History Calcium Carbonate/Vitamin D3 1 tab PO DAILY 03/13/19 04/25/20 History [Caltrate 600 Plus D3 Tablet] polyethylene glycoL 3350 [Miralax] 17 gm PO DAILY 10/01/19 04/25/20 History Tamsulosin [Flomax] 0.4 mg PO PC-SUPPER cap.er.24h 02/26/20 04/25/20 Rx Mupirocin 2% Oint [Bactroban 2% 1 applic TOPICAL DAILY 04/25/20 04/25/20 History Oint] Torsemide [Demadex] 5 mg PO DAILY 04/25/20 04/25/20 History traMADol HCL [Ultram] 50 mg PO BID PRN 04/25/20 04/25/20 History Allergies Allergy/AdvReac Type Severity Reaction Status Date / Time Penicillins Allergy Rash/Hives Verified 04/25/20 20:00 Physical Exam Vitals: Vital Signs Temp Pulse Resp BP Pulse Ox 04/26/20 06:00 98.2 F 107 H 16 137/71 97 04/26/20 00:32 70 18 132/77 98 04/25/20 18:45 106 H 18 140/69 97 04/25/20 17:14 98.1 F 108 H 18 147/72 99 Intake and Output 04/25/20 04/26/20 04/26/20 22:59 06:59 14:59 Output Total 550 Balance -550 Output: Urine 550 Other: Voiding Method Diaper Indwelling Catheter Weight 56.699 kg 56.699 kg PHYSICAL EXAMINATION: GENERAL: The patient is alert and oriented x1, not in any acute distress. Thin built cachectic elderly male HEENT: Pupils are round and equally reacting to light. EOMI. No scleral icterus. No conjunctival pallor. Normocephalic, atraumatic. No pharyngeal erythema. No thyromegaly. CARDIOVASCULAR: S1 and S2 present. No murmurs, rubs, or gallops. PULMONARY: Chest is clear to auscultation, no wheezing or crackles. ABDOMEN: Soft, nontender, nondistended, normoactive bowel sounds. No palpable organomegaly. MUSCULOSKELETAL: No joint swelling or deformity. EXTREMITIES: No cyanosis, clubbing, or pedal edema. NEUROLOGICAL: Is limited to have any focal deficits although extremely limited as patient cannot follow commands SKIN: No rashes. Results CBC & Chem 7: 04/25/20 17:37 04/25/20 17:37 Labs: Abnormal Lab Results - Last 24 Hours (Table) 04/25/20 04/25/20 04/25/20 Range/Units 17:37 17:37 17:37 WBC 14.1 H (3.8-10.6) k/uL RBC 3.54 L (4.30-5.90) m/uL Hgb 9.2 L (13.0-17.5) gm/dL Hct 29.5 L (39.0-53.0) % Plt Count 468 H (150-450) k/uL Neutrophils # 11.9 H (1.3-7.7) k/uL Lymphocytes # 0.8 L (1.0-4.8) k/uL Sodium 128 L (137-145) mmol/L Chloride 91 L (98-107) mmol/L Carbon Dioxide 33 H (22-30) mmol/L BUN 32 H (9-20) mg/dL Creatinine 1.34 H (0.66-1.25) mg/dL Glucose 110 H (74-99) mg/dL Total Protein 5.3 L (6.3-8.2) g/dL Albumin 2.8 L (3.5-5.0) g/dL Urine Protein Trace H (Negative) Urine Ketones Trace H (Negative) Thrombosis Risk Factor Assmnt - Choose All That Apply Any of the Below Risk Factors Present?: Yes Each Factor Represents 1 point: Medical pt on bed rest Other Risk Factors: Yes Each Risk Factor Represents 2 Points: Patient confined to bed Each Risk Factor Represents 3 Points: Age 75 years or older Other congenital or acquired thrombophilia - If yes, enter type in comment: No Thrombosis Risk Factor Assessment Total Risk Factor Score: 6 Thrombosis Risk Factor Assessment Level: High Risk Assessment and Plan Plan: -Anuria, unable to urinate: Secondary to acute renal failure and obstructive uropathy patient received had a Tapia catheter. Patient to is receiving IV fluids at this time patient has both obstructive uropathy and prerenal azotemia. We'll repeat basic metabolic profile again tomorrow patient will follow-up with urology as an outpatient. -Dehydration, leading to acute renal failure and prerenal azotemia: Continue with IV fluids -Possible dementia age-related and senile dementia unable to stage dementia as patient may have some acute metabolic encephalopathy and patient is quite a bit confused at this time. -Hypovolemic hyponatremia expected to improve improved with IV fluids will repeat basic metabolic profile again tomorrow -Leukocytosis reactive in nature -Gastric esophageal reflux disease -Benign prostatic hypertrophy -failure to thrive generalized weakness, moderate protein calorie malnutrition: Supportive care, PT and OT evaluation DVT prophylaxis with subcutaneous heparin
[2020-04-26] MEDS: SODIUM CHLORIDE 0.9% 1,000 ML IV SCH ×3 (15:07→18:21)
[2020-04-26] MEDS: TAMSULOSIN 0.4 MG CAP.ER.24H PO SCH (18:19)
[2020-04-26] MEDS: HEPARIN SODIUM,PORCINE 5,000 UNIT/ML 1 ML VIAL SQ SCH (21:34)
[2020-04-27] MEDS: SODIUM CHLORIDE 0.9% 1,000 ML IV SCH ×3 (01:30→09:21)
[2020-04-27 06:15] LABS: HCT 28.8 % (39.0-53.0); HGB 8.8 gm/dL (13.0-17.5); Hypochromasia Slight; MCHC 30.6 g/dL (31.0-37.0); Mean Platelet Volume 6.8; Platelet Count 510 k/uL (150-450); RBC 3.39 m/uL (4.30-5.90)
[2020-04-27] MEDS: HEPARIN SODIUM,PORCINE 5,000 UNIT/ML 1 ML VIAL SQ SCH ×2 (09:13→20:11)
[2020-04-27] MEDS: ASCORBIC ACID 500 MG TAB PO SCH (09:13)
[2020-04-27] MEDS: CALCIUM CARB-VIT D 500MG-200UN 1 EACH TAB PO SCH (09:13)
[2020-04-27] MEDS: MUPIROCIN 2% OINT 22 GM TUBE TOPICAL SCH (09:14)
[2020-04-27 10:07] LABS: African American GFR (CKD) 89.3 (60.0-200.0); BUN/Creat Ratio 26.67 Ratio (12.00-20.00); Calcium 8.3 mg/dL (8.7-10.3); Non-African American GFR(CKD) 77.1 (60.0-200.0)
[2020-04-27 13:29] VITALS: BMI 19.5
--- NOTE | 2020-04-27 13:32 | XR ---
EXAMINATION TYPE: XR chest 1V portable DATE OF EXAM: 04/27/2020 COMPARISON: 02/23/2020 HISTORY: Rhonchi TECHNIQUE: Single frontal view of the chest is obtained. FINDINGS: Bilateral consolidation and small pleural effusion. Interstitial pattern seen. Suspect und erlying COPD. Hypertrophic change of the spine. Wedge deformity noted on the prior exam is not as wel l-seen on by AP view. No sizable pneumothorax. IMPRESSION: 1. COPD with bilateral infiltrate and pleural effusion correlate for mild CHF. Otherwise, consider pn eumonia.
--- NOTE | 2020-04-27 14:04 | P.PN ---
Subjective 85-year-old pleasant male severely cachectic failure to thrive appear to be dehydrated and is being admitted for dehydration. Patient was brought in by the by his because has not been urinating well recently and has been quite weak. Patient lives with his not a good historian alert oriented 1 apparently has history of dementia and patient does have history of BPH and was on Flomax. Patient was started on IV fluids and appeared to be severely dehydrated. Patient was rapidly retaining urine because of which a Tapia catheter was placed and patient was started on IV fluids with aggressive hydration and patient was having good urine output since then. And the patient had compression fractures from his fall in the past. Patient was discharged to [facility] after his admission in month of January. 04/27/2020 Patient is alert oriented 3 today able to provide me good history. Patient's serum sodium and creatinine improved with IV hydration and Tapia catheter. Patient will need placement in subacute rehabilitation. Patient started getting fluid overloaded with suspicion of pulmonary edema on the chest x-ray IV fluids are being discontinued. There is some atelectasis as well although possibly of pneumonia is low patient will not be started on any antibiotics at this time patient still has some leukocytosis. Constitutional: Denied any fatigue denied any fever. Cardio vascular: denied any chest pain, palpitations Gastrointestinal denied any nausea vomiting Pulmonary: Denied any shortness of breath cough Neurologic denied any new focal deficits All inpatient medications were reviewed and appropriate changes in these medications as dictated in the interval history and assessment and plan. Objective - Vital Signs Vital signs: Vital Signs Temp 97.9 F 04/27/20 12:43 Pulse 103 H 04/27/20 12:43 Resp 19 04/27/20 12:43 BP 123/54 04/27/20 12:43 Pulse Ox 94 L 04/27/20 12:43 Intake & Output 04/26/20 04/27/20 04/27/20 18:59 06:59 18:59 Intake Total 237 1917 Output Total 550 300 Balance -313 1617 Weight 56.699 kg 56.699 kg Intake: Intake, IV Titration 1560 Amount Sodium Chloride 0.9% 1, 1560 000 ml @ 130 mls/hr IV . [id number] [facility] Rx#:[id number] Oral 237 357 Output: Urine 550 300 Uretheral (Tapia) 300 Other: Voiding Method Indwelling Catheter Indwelling Catheter Indwelling Catheter - Exam PHYSICAL EXAMINATION: GENERAL: The patient is alert and oriented x3, not in any acute distress. Well developed, well nourished. HEENT: Pupils are round and equally reacting to light. EOMI. No scleral icterus. No conjunctival pallor. Normocephalic, atraumatic. No pharyngeal erythema. No t hyromegaly. CARDIOVASCULAR: S1 and S2 present. No murmurs, rubs, or gallops. PULMONARY: Mild bibasilar crackles and rhonchi ABDOMEN: Soft, nontender, nondistended, normoactive bowel sounds. No palpable organomegaly. MUSCULOSKELETAL: No joint swelling or deformity. EXTREMITIES: No cyanosis, clubbing, or pedal edema. NEUROLOGICAL: Gross neurological examination did not reveal any focal deficits. SKIN: No rashes. - Labs CBC & Chem 7: 04/27/20 05:41 04/27/20 05:41 Labs: Abnormal Lab Results - Last 24 Hours (Table) 04/27/20 04/27/20 Range/Units 05:41 05:41 WBC 12.0 H (3.8-10.6) k/uL RBC 3.39 L (4.30-5.90) m/uL Hgb 8.8 L (13.0-17.5) gm/dL Hct 28.8 L (39.0-53.0) % MCHC 30.6 L (31.0-37.0) g/dL Plt Count 510 H (150-450) k/uL Sodium 134 L (135-145) mmol/L Carbon Dioxide 20.0 L (21.6-31.8) mmol/L Anion Gap 14.00 H (4.00-12.00) mmol/L BUN/Creatinine Ratio 26.67 H (12.00-20.00) Ratio Calcium 8.3 L (8.7-10.3) mg/dL Assessment and Plan Plan: -Anuria, unable to urinate: Secondary to acute renal failure and obstructive uropathy patient received had a Tapia catheter. Patient to is receiving IV fluids at this time patient has both obstructive uropathy and prerenal azotemia. Improved kidney function. Patient will follow-up with urology as -Dehydration, leading to acute renal failure and prerenal azotemia: Improved now patient started to get volume more bloated IV fluids were discontinued -Possible dementia age-related and senile dementia unable to stage dementia as patient may have some acute metabolic encephalopathy and patient is quite a bit confused at this time. -Hypovolemic hyponatremia improved with Tapia catheter and IV fluids -Atelectasis incentive spirometry will be ordered in the patient will be monitored for any signs or symptoms of pneumonia patient does have leukocytosis but doesn't have any fever doesn't have any significant cough. Pneumonia at this point of time is -Leukocytosis reactive in nature -Gastric esophageal reflux disease -Benign prostatic hypertrophy -failure to thrive generalized weakness, moderate protein calorie malnutrition: Supportive care, PT and OT evaluation DVT prophylaxis with subcutaneous heparin
[2020-04-27] MEDS: TAMSULOSIN 0.4 MG CAP.ER.24H PO SCH (17:42)
[2020-04-27] MEDS: ACETAMINOPHEN TAB 325 MG TAB PO PRN (21:10)
[2020-04-28] MEDS: ASCORBIC ACID 500 MG TAB PO SCH (08:10)
[2020-04-28] MEDS: MUPIROCIN 2% OINT 22 GM TUBE TOPICAL SCH (08:10)
[2020-04-28] MEDS: HEPARIN SODIUM,PORCINE 5,000 UNIT/ML 1 ML VIAL SQ SCH ×2 (08:10→20:17)
[2020-04-28] MEDS: CALCIUM CARB-VIT D 500MG-200UN 1 EACH TAB PO SCH (08:10)
[2020-04-28] MEDS: ACETAMINOPHEN TAB 325 MG TAB PO PRN (09:32)
[2020-04-28 12:06] LABS: African American GFR (CKD) 78.6 (60.0-200.0); Anion Gap 7.5 mmol/L (4.00-12.00); Calcium 8.9 mg/dL (8.7-10.3); Carbon Dioxide 27.5 mmol/L (21.6-31.8); Non-African American GFR(CKD) 67.8 (60.0-200.0); Potassium 3.9 mmol/L (3.5-5.5)
[2020-04-28] MEDS: TAMSULOSIN 0.4 MG CAP.ER.24H PO SCH (18:01)
[2020-04-28 20:48] VITALS: RESP 20
--- NOTE | 2020-04-28 22:40 | P.PN ---
Progress Note - Text Progress Note Date: 04/28/20 History of presenting complaint: This is a pleasant 85-year-old patient of Dr. Leija. Chronic stable medical conditions include hypertension, osteoarthritis, peptic ulcer disease, moderate protein calorie malnutrition, L1-L3 subacute compression fracture of the vertebra, autonomic dysfunction. BPH. Baseline uses a cane. Admitted with dehydration. Decreased urine output. Not urinating well. Responded well to IV fluids. Today-laying in bed. Awake. Appetite improving. Oral intake improving. Review of systems: Was done for constitutional, cardiovascular, GI, pulmonary. relevant finding as above Active Medications Acetaminophen (Acetaminophen Tab 325 Mg Tab) 650 mg PO Q6HR PRN PRN Reason: Mild Pain or Fever > 100.5 Last Admin: 04/28/20 09:32 Dose: 650 mg Documented by: Ascorbic Acid (Ascorbic Acid 500 Mg Tab) 1,000 mg PO DAILY [facility] Last Admin: 04/28/20 08:10 Dose: 1,000 mg Documented by: Calcium Carbonate (Calcium Carb-Vit D 500mg-200un 1 Each Tab) 1 each PO DAILY [facility] Last Admin: 04/28/20 08:10 Dose: 1 each Documented by: Heparin Sodium (Porcine) (Heparin Sodium,Porcine 5,000 Unit/Ml 1 Ml Vial) 5,000 unit SQ Q12HR ADELINE Last Admin: 04/28/20 20:17 Dose: 5,000 unit Documented by: Melatonin (Melatonin 3 Mg Tablet) 3 mg PO HS PRN PRN Reason: Insomnia Mupirocin (Mupirocin 2% Oint 22 Gm Tube) 1 applic TOPICAL DAILY [facility] Last Admin: 04/28/20 08:10 Dose: 1 applic Documented by: Naloxone HCl (Naloxone 0.4 Mg/Ml 1 Ml Vial) 0.2 mg IV Q2M PRN PRN Reason: Opioid Reversal Polyethylene Glycol (Polyethylene Glycol 3350 17 Gm Powd.Pack) 17 gm PO DAILY PRN PRN Reason: Constipation Tamsulosin HCl (Tamsulosin 0.4 Mg Cap.Er.24h) 0.4 mg PO PC-SUPPER [facility] Last Admin: 04/28/20 18:01 Dose: 0.4 mg Documented by: Tramadol HCl (Tramadol 50 Mg Tab) 50 mg PO BID PRN PRN Reason: Pain Last Admin: 04/28/20 19:28 Dose: 50 mg Documented by: Physical examination: VITAL SIGNS: 98, 109, 17, 119/62, 97% on room air GENERAL: Laying in bed, awake, tired EYES: Pupils equal. Conjunctiva pale HEENT: External appearance of nose and ears normal, oral cavity grossly normal. NECK: JVD not raised; masses not palpable. HEART: First and second heart sounds are normal; no edema. LUNGS: Respiratory rate normal; clear to auscultation. ABDOMEN: Soft, nontender, liver spleen not palpable, no masses palpable. PSYCH: Answering simple questions MUSCULOSKELETAL: Loss of subcutaneous fat and prominent bony prominences INVESTIGATIONS, reviewed in the clinical context: White count 12 hemoglobin 8.8 patient's 510 potassium 3.9 creatinine 1.0 Admission labs: Creatinine 1.34 Assessment: -Acute kidney injury, prerenal from decreased oral intake/dehydration, POA -Hyponatremia, hypovolemic, POA improved -BPH -Possible autonomic dysfunction -Essential hypertension - proximal myopathy -Severe protein calorie malnutrition-from decreased oral intake -L1-L3 subacute compression fracture secondary to fall -Chronic medical debility -Chronic gait dysfunction uses a cane -Mild cognitive impairment -Medical debility Plan: Continue current medication treatment plan. Plan to DC to [facility]CF. Discussed with the patient.
[2020-04-29 07:00] VITALS: BP 146/74; PULSE 105; TEMP 97.8
[2020-04-29] MEDS: HEPARIN SODIUM,PORCINE 5,000 UNIT/ML 1 ML VIAL SQ SCH (08:27)
[2020-04-29] MEDS: CALCIUM CARB-VIT D 500MG-200UN 1 EACH TAB PO SCH (08:27)
[2020-04-29] MEDS: MUPIROCIN 2% OINT 22 GM TUBE TOPICAL SCH (08:27)
[2020-04-29] MEDS: ASCORBIC ACID 500 MG TAB PO SCH (08:27)
--- NOTE | 2020-04-29 14:38 | P.DS ---
Providers Date of admission: 04/25/20 19:44 Expected date of discharge: 04/29/20 Attending physician: Kj Basilio Primary care physician: Corwin Leija [facility] Course: History of presenting complaint: This is a pleasant 85-year-old patient of Dr. Leija. 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 BPH. Baseline uses a cane. Admitted with dehydration. Decreased urine output. Not urinating well. Responded well to IV fluids. Creatinine admission was 1.34 down to 0.9 Today-laying in bed. Awake. Appetite improving. Oral intake improving. Eating about 25%. Patient is qualified for inpatient rehab. Discussed with patient. Discussion and discharge planning more than 35 minutes Physical examination: VITAL SIGNS: 97.8, 105, 20, 146% of 4, 95% room air GENERAL: Laying in bed, awake, EYES: Pupils equal. Conjunctiva pale NECK: JVD not raised; masses not palpable. HEART: First and second heart sounds are normal; no edema. LUNGS: Respiratory rate normal; clear to auscultation. ABDOMEN: Soft, nontender, liver spleen not palpable, no masses palpable. PSYCH: Answering simple questions MUSCULOSKELETAL: Loss of subcutaneous fat and prominent bony prominences INVESTIGATIONS, reviewed in the clinical context: White count 12 hemoglobin 8.8 patient's 510 potassium 3.9 creatinine 1.0 Admission labs: Creatinine 1.34 Assessment: -Acute kidney injury, prerenal from decreased oral intake/dehydration, POA -Hyponatremia, hypovolemic, POA improved -BPH -Possible autonomic dysfunction -Essential hypertension - proximal myopathy -Severe protein calorie malnutrition-from decreased oral intake -L1-L3 subacute compression fracture secondary to fall -Chronic medical debility -Chronic gait dysfunction uses a cane -Mild cognitive impairment -Medical debility Disposition: [facility] Patient Condition at Discharge: Undetermined Plan - Discharge Summary Discharge Rx Participant: No New Discharge Prescriptions: New Melatonin 3 mg PO HS PRN tablet PRN Reason: Insomnia Continue Ascorbic Acid [Vitamin C] 1,000 mg PO DAILY Calcium Carbonate/Vitamin D3 [Caltrate 600 Plus D3 Tablet] 1 tab PO DAILY polyethylene glycoL 3350 [Miralax] 17 gm PO DAILY Tamsulosin [Flomax] 0.4 mg PO PC-SUPPER cap.er.24h traMADol HCL [Ultram] 50 mg PO BID PRN PRN Reason: Pain Mupirocin 2% Oint [Bactroban 2% Oint] 1 applic TOPICAL DAILY Discontinued Torsemide [Demadex] 5 mg PO DAILY Discharge Medication List Ascorbic Acid [Vitamin C] 1,000 mg PO DAILY 05/12/18 [History] Calcium Carbonate/Vitamin D3 [Caltrate 600 Plus D3 Tablet] 1 tab PO DAILY 03/13/19 [History] polyethylene glycoL 3350 [Miralax] 17 gm PO DAILY 10/01/19 [History] Tamsulosin [Flomax] 0.4 mg PO PC-SUPPER cap.er.24h 02/26/20 [Rx] Mupirocin 2% Oint [Bactroban 2% Oint] 1 applic TOPICAL DAILY 04/25/20 [History] traMADol HCL [Ultram] 50 mg PO BID PRN 04/25/20 [History] Melatonin 3 mg PO HS PRN tablet 04/29/20 [Rx] Follow up Appointment(s)/Referral(s): Corwin Leija DO [Primary Care Provider] - 1-2 days Activity/Diet/Wound Care/Special Instructions: Honey thickened liquids, chin tuck - supervise meals
== END 2020-04-29 18:48 ==
LOC: EC 17:12 → OBSVTOIN 19:44 → 4SSUR 19:44 → INTOOBSV 19:44 → 4SSUR 04-26 00:16 → 6NMEDSUR 04-26 10:56 → UNDODISIN 04-29 18:48
PROVIDERS: ADMIT Hospitalist; ATTEND Hospitalist
DX: N17.9 Acute kidney failure, unspecified (principal); E86.0 Dehydration; R34 Anuria and oliguria; R64 Cachexia; R62.7 Adult failure to thrive; Z68.1 Body mass index [BMI] 19.9 or less, adult; G93.41 Metabolic encephalopathy; I12.9 Hypertensive chronic kidney disease with stage 1 through stage 4 chronic kidney disease, or unspecified chronic kidney disease; D63.1 Anemia in chronic kidney disease; E87.1 Hypo-osmolality and hyponatremia; N13.9 Obstructive and reflux uropathy, unspecified; R26.9 Unspecified abnormalities of gait and mobility; J98.11 Atelectasis; E86.1 Hypovolemia; G90.9 Disorder of the autonomic nervous system, unspecified; K59.00 Constipation, unspecified; R53.81 Other malaise; M19.90 Unspecified osteoarthritis, unspecified site; Z87.440 Personal history of urinary (tract) infections; Z87.01 Personal history of pneumonia (recurrent); Z87.19 Personal history of other diseases of the digestive system; K27.9 Peptic ulcer, site unspecified, unspecified as acute or chronic, without hemorrhage or perforation; H26.9 Unspecified cataract; M54.9 Dorsalgia, unspecified; Z82.49 Family history of ischemic heart disease and other diseases of the circulatory system; F03.90 Unspecified dementia, unspecified severity, without behavioral disturbance, psychotic disturbance, mood disturbance, and anxiety; N40.0 Benign prostatic hyperplasia without lower urinary tract symptoms; K21.9 Gastro-esophageal reflux disease without esophagitis; G72.9 Myopathy, unspecified; E43 Unspecified severe protein-calorie malnutrition; S32.019S Unspecified fracture of first lumbar vertebra, sequela; S32.029S Unspecified fracture of second lumbar vertebra, sequela; S32.039S Unspecified fracture of third lumbar vertebra, sequela; W19.XXXS Unspecified fall, sequela; Z98.890 Other specified postprocedural states; D72.829 Elevated white blood cell count, unspecified; R79.89 Other specified abnormal findings of blood chemistry; Z79.899 Other long term (current) drug therapy; Z88.0 Allergy status to penicillin
CPT/HCPCS: 96361 ×3; 96372 ×4; 96360; 99285; 51702; 36415; 97530; 97162; 97535; 97166; 80053; 80048 ×2; 82150; 83690; 85025; 85027; 81003; 71045; 74018; G0378 ×6; J1644 ×4; 99284